=== PATIENT | male | born 1945 | race African-American/Black ===

== ENCOUNTER 2021-04-12 20:00 | Inpatient (IN) | payer MEDICARE, OTHER ==
[~2021-04-12] VITALS: Ht 180.3 cm; Wt 73.6 kg
[2021-04-12] VITALS (9 sets, daily range): BP systolic 125–147; BP diastolic 64–72
[2021-04-12] MEDS ORDERED: VECURONIUM BOLUS 10 MG VIAL. IV PRN (20:15)
[2021-04-12] MEDS ORDERED: ATROPINE 0.5 MG/5 ML DISP.SYRINGE. IV PRN (20:15)
[2021-04-12] MEDS ORDERED: IV NORMAL SALINE 500ML BAG 500 ML IV PRN (20:15)
[2021-04-12] MEDS ORDERED: PROPOFOL 100 ML IV PRN (20:15)
[2021-04-12] MEDS: FAMOTIDINE 20 MG/2 ML VIAL IVP SCH (21:00)
--- NOTE | 2021-04-12 21:41 | PDOC1 ---
History and Physical Date of Service: DOS: DATE: 04/12/21 TIME: 21:36 Chief Complaint: Chief Complain: Shortness of breath History of Present Illness: HPI: Patient is 75-year-old male presented here via transfer from [facility] due to shortness of breath. Patient was apparently feeling short of breath this morning called EMS O2 sat found to be 60% on room air and even with placement of nonrebreather remained in the 60s. Was intubated in the field and brought to the emergency room. History very limited. Past Medical/Surgical History: PMH/PSH: Hypertension diabetes Allergies: Allergies: Coded Allergies: No Known Drug Allergies (Unverified , 04/12/21) Family History: Family History: Cannot review with patient Social History: Social History: Cannot review with patient. Current Medications: Current Medications Current Medications Fentanyl Citrate 30 ml @ 2.5 mls/hr CONT PRN IV SEE PROTOCOL Last administered on 04/12/21at 20:34; Start 04/12/21 at 20:15 Propofol 100 ml @ 0 mls/hr CONT PRN IV PER PROTOCOL Last administered on 04/12/21at 20:32; Start 04/12/21 at 20:15; Stop 04/12/21 at 20:35; Status DC Vecuronium [place] (Norcuron Bolus) 6 mg PRN 1X PRN IV VENT INDUCTION; Start 04/12/21 at 20:15; Stop 04/13/21 at 20:14 Sodium Chloride 500 ml @ 500 mls/hr 1X PRN PRN IV SEE COMMENTS; Start 04/12/21 at 20:15 Atropine Sulfate (ATROPINE 0.5mg SYRINGE) 0.5 mg PRN Q5MIN PRN IV SEE COMMENTS; Start 04/12/21 at 20:15 Famotidine (Pepcid Vial) 20 mg BID IVP Last administered on 04/12/21at 21:00; Start 04/12/21 at 21:00 Propofol 100 ml @ 2.418 mls/ hr CONT PRN IV PER PROTOCOL; Start 04/12/21 at 20:35 ROS: Review of Systems Review of System Unable to obtain due to patient intubated and sedated Physical Exam: Vital Signs: Vital Signs Date Time Temp Pulse Resp B/P (MAP) Pulse Ox O2 Delivery O2 Flow Rate FiO2 04/12/21 21:20 100 04/12/21 21:15 61 20 128/67 Ventilator 04/12/21 19:30 97.9 97.9 Physcial Exam: GEN: No apparent distress. Intubated sedated HEENT: Normal cephalic, atraumatic, external auditory canals are patent EYES: Extraocular muscles are intact, pupil are equally round and reactive to light and accommodation MUSCULOSKELETAL: Well developed , well nourished ENDOCRINE: No thyromegaly was palpated LYMPHATICS: No cervical chain or axillary nodes were noted HEMATOPOIETIC: No bruising NECK: Supple, no JVD, no thyromegaly was noted LUNGS: Decreased breath sounds throughout HEART: RRR, S1, S2 present. Peripheral pulses intact, no obvious murmurs noted ABDOMEN: Soft, nontender. Positive bowel sounds, no organomegaly, normal bowel sounds EXTREMITIES: Bilateral lower extremity edema NEUROLOGIC: Intubated sedated cannot fully assess SKIN: No ulcerations or rashes, good skin turgor, no jaundice VASCULAR: Good capillary refill, neurovascular bundle appears to be intact Assessment/Plan Assessment/Plan Acute hypoxic respiratory failure secondary to pulmonary edema versus is pneumonia gram-negative versus gram-positive. Otherwise medical history very limited -Admit to ICU -Imaging from outside hospital shows bilateral pleural effusions. Could be infectious or inflammatory. Either way we will cover with broad antibiotics and see how he does with a dose of Lasix. -Try to discuss with patient's spouse over the phone very limited information she provided -Continue intubation and sedation until clinical picture more clear -Pulmonary consulted -Zosyn azithromycin -One-time 125 Solu-Medrol -DVT prophylaxis -N.p.o. 50 minutes critical care time Justifications for Admission Other Justification ANDREW ELIZABETH MD Apr 12, 2021 21:41
[2021-04-12] MEDS ORDERED: ONDANSETRON PF 4 MG/2 ML VIAL. IVP PRN (21:45)
[2021-04-12] MEDS ORDERED: CALCIUM CARBONATE 500 MG TAB.CHEW PO PRN (21:45)
[2021-04-12] MEDS ORDERED: PIP/TAZO PER PHARMACY MC PRN (21:45)
[2021-04-12] MEDS ORDERED: ACETAMINOPHEN 325 MG TABLET. PO PRN (21:45)
[2021-04-12] MEDS ORDERED: 0.9 % SODIUM CHLORIDE 10 ML DISP.SYRIN. IV PRN (21:45)
[2021-04-12] MEDS: HEPARIN for SUB-Q USE 5,000 UNIT/ML VIAL. SQ SCH (22:00)
[2021-04-12] MEDS ORDERED: methylPREDNISolone SOD SUCC PF 125 MG/2 ML VIAL. IV ONE (22:00)
--- NOTE | 2021-04-12 22:32 | NUR ---
admit from [facility]. Resp failure. Intubated at [facility] Most health history obtain from .
--- NOTE | 2021-04-12 22:52 | RAD ---
Exam: Chest one view INDICATION: Intubation TECHNIQUE: Frontal view of the chest Comparisons: None FINDINGS: Endotracheal tube with tip approximately 4 cm above the kat. Enteric tube traverses below the diap hragm. The cardiomediastinal silhouette and pulmonary vessels are within normal limits. His opacity in lungs bilaterally. No pleural effusion. IMPRESSION: Lines and tubes described above. Electronically signed by: Christiano Maldonado MD (04/12/2021 10:50 PM) SHARDA
[2021-04-12] MEDS: PIPERACILLIN/TAZOBACTAM 3.375 GM in IV NORMAL SALINE 50ML 50 ML IV SCH (23:50)
[2021-04-13] VITALS (22 sets, daily range): BP systolic 87–146; BP diastolic 43–76
[2021-04-13] MEDS: PROPOFOL 100 ML IV PRN ×4 (00:57→21:10)
[2021-04-13] MEDS: PIPERACILLIN/TAZOBACTAM 3.375 GM in IV NORMAL SALINE 50ML 50 ML IV SCH ×4 (05:49→23:31)
[2021-04-13] MEDS: HEPARIN for SUB-Q USE 5,000 UNIT/ML VIAL. SQ SCH ×3 (05:50→21:17)
[2021-04-13 07:54] LABS: BASE EXCESS ABG -4 mmol/L (-3-3); HCO3 ABG 20 mmol/L (21-28); PCO2 ABG 36 mmHg (35-46); PO2 ABG 116 mmHg (65-108); SAT O2 ABG 97 % (92-99)
[2021-04-13 07:56] LABS: FIO2 ABG 40
[2021-04-13] MEDS: FAMOTIDINE 20 MG/2 ML VIAL IVP SCH ×2 (08:10→21:11)
[2021-04-13] MEDS: DOXYCYCLINE HYCLATE 100 MG in IV DEXTROSE 5% 100ML 100 ML IV SCH ×2 (08:11→21:11)
[2021-04-13 08:53] LABS: CALCIUM 8.3 mg/dL (8.5-10.1); CREATININE 1.1 mg/dL (0.7-1.3); GFR 79.2; POTASSIUM 4.2 mmol/L (3.5-5.1)
[2021-04-13] MEDS: ELECTROLYTE (ICU) PROTOCOL. MC SCH (09:00)
[2021-04-13] MEDS ORDERED: FAMOTIDINE 20 MG TABLET. PO SCH (09:00)
[2021-04-13 09:01] LABS: BASO % 0 % (0-3); EOS % 0 % (0-3); HEMATOCRIT 30.9 % (39.0-53.0); HEMOGLOBIN 10.3 g/dL (13.0-17.5); LYMPH # 0.8 x10^3/uL (1.0-4.8); LYMPH % 9 % (24-48); MEAN CORPUSCULAR HEMOGLOBIN 33 pg (25-35); MEAN CORPUSCULAR HGB CONC 33 g/dL (31-37); MEAN CORPUSCULAR VOLUME 99 fL (79-100); MONO # 0.2 x10^3/uL (0.0-1.1); MONO % 2 % (0-9); NEUT # 8.3 x10^3/uL (1.8-7.7); NEUT % 89 % (31-73); PLATELET COUNT 110 x10^3/uL (140-400); RED BLOOD COUNT 3.13 x10^6/uL (4.30-5.70); RED CELL DISTRIBUTION WIDTH 12.9 % (11.5-14.5); WHITE BLOOD COUNT 9.4 x10^3/uL (4.0-11.0)
[2021-04-13] MEDS ORDERED: methylPREDNISolone SOD SUCC PF 125 MG/2 ML VIAL. IV SCH (11:30)
--- NOTE | 2021-04-13 12:01 | PDOC ---
PULMONARY PROGRESS NOTES DATE: 04/13/21 TIME: 12:00 Vitals Vital Signs Date Time Temp Pulse Resp B/P (MAP) Pulse Ox O2 Delivery O2 Flow Rate FiO2 04/13/21 11:17 100 Ventilator 04/13/21 10:00 53 20 98/50 04/13/21 08:00 97.9 97.9 Labs Laboratory Tests Test 04/12/21 20:49 04/13/21 07:45 04/13/21 08:40 Glucose (Fingerstick) 135 mg/dL (70-99) O2 Saturation 97 % (92-99) Arterial Blood pH 7.37 (7.35-7.45) Arterial Blood pCO2 at Patient Temp 36 mmHg (35-46) Arterial Blood pO2 at Patient Temp 116 mmHg (65-108) Arterial Blood HCO3 20 mmol/L (21-28) Arterial Blood Base Excess -4 mmol/L (-3-3) FiO2 40 White Blood Count 9.4 x10^3/uL (4.0-11.0) Red Blood Count 3.13 x10^6/uL (4.30-5.70) Hemoglobin 10.3 g/dL (13.0-17.5) Hematocrit 30.9 % (39.0-53.0) Mean Corpuscular Volume 99 fL (79-100) Mean Corpuscular Hemoglobin 33 pg (25-35) Mean Corpuscular Hemoglobin Concent 33 g/dL (31-37) Red Cell Distribution Width 12.9 % (11.5-14.5) Platelet Count 110 x10^3/uL (140-400) Neutrophils (%) (Auto) 89 % (31-73) Lymphocytes (%) (Auto) 9 % (24-48) Monocytes (%) (Auto) 2 % (0-9) Eosinophils (%) (Auto) 0 % (0-3) Basophils (%) (Auto) 0 % (0-3) Neutrophils # (Auto) 8.3 x10^3/uL (1.8-7.7) Lymphocytes # (Auto) 0.8 x10^3/uL (1.0-4.8) Monocytes # (Auto) 0.2 x10^3/uL (0.0-1.1) Eosinophils # (Auto) 0.0 x10^3/uL (0.0-0.7) Basophils # (Auto) 0.0 x10^3/uL (0.0-0.2) Sodium Level 144 mmol/L (136-145) Potassium Level 4.2 mmol/L (3.5-5.1) Chloride Level 108 mmol/L (98-107) Carbon Dioxide Level 23 mmol/L (21-32) Anion Gap 13 (6-14) Blood Urea Nitrogen 29 mg/dL (8-26) Creatinine 1.1 mg/dL (0.7-1.3) Estimated GFR (Cockcroft-Gault) 79.2 Glucose Level 187 mg/dL (70-99) Calcium Level 8.3 mg/dL (8.5-10.1) Laboratory Tests Test 04/12/21 20:49 04/13/21 07:45 04/13/21 08:40 Glucose (Fingerstick) 135 mg/dL (70-99) O2 Saturation 97 % (92-99) Arterial Blood pH 7.37 (7.35-7.45) Arterial Blood pCO2 at Patient Temp 36 mmHg (35-46) Arterial Blood pO2 at Patient Temp 116 mmHg (65-108) Arterial Blood HCO3 20 mmol/L (21-28) Arterial Blood Base Excess -4 mmol/L (-3-3) FiO2 40 White Blood Count 9.4 x10^3/uL (4.0-11.0) Red Blood Count 3.13 x10^6/uL (4.30-5.70) Hemoglobin 10.3 g/dL (13.0-17.5) Hematocrit 30.9 % (39.0-53.0) Mean Corpuscular Volume 99 fL (79-100) Mean Corpuscular Hemoglobin 33 pg (25-35) Mean Corpuscular Hemoglobin Concent 33 g/dL (31-37) Red Cell Distribution Width 12.9 % (11.5-14.5) Platelet Count 110 x10^3/uL (140-400) Neutrophils (%) (Auto) 89 % (31-73) Lymphocytes (%) (Auto) 9 % (24-48) Monocytes (%) (Auto) 2 % (0-9) Eosinophils (%) (Auto) 0 % (0-3) Basophils (%) (Auto) 0 % (0-3) Neutrophils # (Auto) 8.3 x10^3/uL (1.8-7.7) Lymphocytes # (Auto) 0.8 x10^3/uL (1.0-4.8) Monocytes # (Auto) 0.2 x10^3/uL (0.0-1.1) Eosinophils # (Auto) 0.0 x10^3/uL (0.0-0.7) Basophils # (Auto) 0.0 x10^3/uL (0.0-0.2) Sodium Level 144 mmol/L (136-145) Potassium Level 4.2 mmol/L (3.5-5.1) Chloride Level 108 mmol/L (98-107) Carbon Dioxide Level 23 mmol/L (21-32) Anion Gap 13 (6-14) Blood Urea Nitrogen 29 mg/dL (8-26) Creatinine 1.1 mg/dL (0.7-1.3) Estimated GFR (Cockcroft-Gault) 79.2 Glucose Level 187 mg/dL (70-99) Calcium Level 8.3 mg/dL (8.5-10.1) Impression . Full consult dictated Acute hypoxemic respiratory failure suspect mostly secondary to pulmonary edema, continue empiric antibiotics for an infection Consult cardiology IV Lasix Reportedly patient tested negative for SARS-CoV-2. JUMA HODGE MD Apr 13, 2021 12:01
[2021-04-13] MEDS ORDERED: FUROSEMIDE 40 MG/4 ML VIAL. IVP ONE (12:30)
[2021-04-13 12:31] LABS: BILIRUBIN,URINE NEGATIVE (NEG); CLARITY,URINE CLEAR; COLOR,URINE YELLOW; NITRITE,URINE NEGATIVE (NEG); PROTEIN,URINE 30 mg/dL (NEG-TRACE); UROBILINOGEN,URINE 0.2 mg/dL (0.2 mg/dL)
[2021-04-13 12:34] LABS: BARBITURATES NEG (NEG); BENZODIAZEPINES POS (NEG); CANNABINOIDS NEG (NEG); COCAINE NEG (NEG); METHADONE NEG (NEG); OPIATES NEG (NEG); PHENCYCLIDINE NEG (NEG)
[2021-04-13 12:35] LABS: AMPHETAMINE/METHAMPHETAMINE NEG (NEG)
[2021-04-13 12:51] LABS: BACTERIA,URINE 0 /HPF (0-FEW); RBC,URINE 0 /HPF (0-2); SPERM,URINE PRESENT /HPF
[2021-04-13] MEDS ORDERED: FUROSEMIDE 40 MG/4 ML VIAL. IVP SCH (14:00)
--- NOTE | 2021-04-13 14:47 | NUR ---
SS following for discharge planning. SS reviewed pt chart and discussed with pt RN. Pt is from home with spouse and is currently on the vent at 40%. COVID19 positive. Pt on Propofol and Fentanyl. Pt on IV Lasix, IV Doxycycline, and IV Zosyn. Not stable. Pt's spouse contacted and requested referral to [facility] for emergency leave for her son First Class Chris Palomares in [place], [place]. contacted [facility] at [phone], and made request for leave. Case#[id number], was provided. contacted pt's spouse and son and provided them with the [facility] case number. SS will continue to follow for discharge planning. Addendum: 04/13/21 at 1516 by EDD PIZANO CORRECTION TO PREVIOUS NOTE: Per clothes presser, pt is COVID19 negative from [facility].
--- NOTE | 2021-04-13 16:08 | PDOC ---
[employer] PROGRESS NOTE Date of Service DOS: DATE: 04/13/21 TIME: 16:05 Chief Complaint Chief Complaint Acute hypoxic respiratory failure ACUTE systolic CHF, lasix acute pulmonary edema - poss pneumonia gram-negative versus gram-positive. History of Present Illness History of Present Illness CXR reviewed with PULM BNP up, will give lasix, urine cr high CV consult on vent, wean as able, Fi02 down already, try to trial if able, intubated in ER at [facility] urgently, was covid NEGATIVE ICU Care 33 minutes Vitals/I&O Vitals/I&O: Vital Signs Date Time Temp Pulse Resp B/P (MAP) Pulse Ox O2 Delivery O2 Flow Rate FiO2 04/13/21 15:44 100 Ventilator 04/13/21 15:00 52 20 142/67 04/13/21 12:00 97.6 97.6 I & O 04/12/21 04/12/21 04/13/21 15:00 23:00 07:00 Intake Total 135 ml Output Total 575 ml 475 ml Balance -575 ml -340 ml Physical Exam General: Other (venet, sedated, ) Heart: Regular rate, Gallops Lungs: Other (ralas, no wheeze, distant, mech sound of vent) Abdomen: No tenderness Extremities: No cyanosis Skin: No breakdown, No significant lesion Labs Labs: Laboratory Tests Test 04/12/21 20:49 04/13/21 07:45 04/13/21 08:40 04/13/21 12:22 Glucose (Fingerstick) 135 mg/dL (70-99) O2 Saturation 97 % (92-99) Arterial Blood pH 7.37 (7.35-7.45) Arterial Blood pCO2 at Patient Temp 36 mmHg (35-46) Arterial Blood pO2 at Patient Temp 116 mmHg (65-108) Arterial Blood HCO3 20 mmol/L (21-28) Arterial Blood Base Excess -4 mmol/L (-3-3) FiO2 40 White Blood Count 9.4 x10^3/uL (4.0-11.0) Red Blood Count 3.13 x10^6/uL (4.30-5.70) Hemoglobin 10.3 g/dL (13.0-17.5) Hematocrit 30.9 % (39.0-53.0) Mean Corpuscular Volume 99 fL (79-100) Mean Corpuscular Hemoglobin 33 pg (25-35) Mean Corpuscular Hemoglobin Concent 33 g/dL (31-37) Red Cell Distribution Width 12.9 % (11.5-14.5) Platelet Count 110 x10^3/uL (140-400) Neutrophils (%) (Auto) 89 % (31-73) Lymphocytes (%) (Auto) 9 % (24-48) Monocytes (%) (Auto) 2 % (0-9) Eosinophils (%) (Auto) 0 % (0-3) Basophils (%) (Auto) 0 % (0-3) Neutrophils # (Auto) 8.3 x10^3/uL (1.8-7.7) Lymphocytes # (Auto) 0.8 x10^3/uL (1.0-4.8) Monocytes # (Auto) 0.2 x10^3/uL (0.0-1.1) Eosinophils # (Auto) 0.0 x10^3/uL (0.0-0.7) Basophils # (Auto) 0.0 x10^3/uL (0.0-0.2) Sodium Level 144 mmol/L (136-145) Potassium Level 4.2 mmol/L (3.5-5.1) Chloride Level 108 mmol/L (98-107) Carbon Dioxide Level 23 mmol/L (21-32) Anion Gap 13 (6-14) Blood Urea Nitrogen 29 mg/dL (8-26) Creatinine 1.1 mg/dL (0.7-1.3) Estimated GFR (Cockcroft-Gault) 79.2 Glucose Level 187 mg/dL (70-99) Calcium Level 8.3 mg/dL (8.5-10.1) ZP-Tir-O-Type Natriuretic Peptide 1405 pg/mL (0-124) Urine Collection Type Unknown Urine Color Yellow Urine Clarity Clear Urine pH 5.0 (<5.0-8.0) Urine Specific [place] >=1.030 (1.000-1.030) Urine Protein 30 mg/dL (NEG-TRACE) Urine Glucose (UA) Negative mg/dL (NEG) Urine Ketones (Stick) Trace mg/dL (NEG) Urine Blood Negative (NEG) Urine Nitrite Negative (NEG) Urine Bilirubin Negative (NEG) Urine Urobilinogen Dipstick 0.2 mg/dL (0.2 mg/dL) Urine Leukocyte Esterase Negative (NEG) Urine RBC 0 /HPF (0-2) Urine WBC 1-4 /HPF (0-4) Urine Squamous Epithelial Cells Few /LPF Urine Bacteria 0 /HPF (0-FEW) Urine Sperm Present /HPF Urine Random Creatinine 161.0 mg/dL (Not Establ.) Urine Opiates Screen Neg (NEG) Urine Methadone Screen Neg (NEG) Urine Barbiturates Neg (NEG) Urine Phencyclidine Screen Neg (NEG) Urine Amphetamine/Methamphetamine Neg (NEG) Urine Benzodiazepines Screen Pos (NEG) Urine Cocaine Screen Neg (NEG) Urine Cannabinoids Screen Neg (NEG) Urine Ethyl Alcohol Neg (NEG) Comment Review of Relevant I have reviewed the following items carmen (where applicable) has been applied. Medications: Current Medications Medications (Trade) Dose Ordered Sig/Radhames Route PRN Reason Start Time Stop Time Status Last Admin Dose Admin Fentanyl Citrate 30 ml @ 2.5 mls/hr CONT PRN IV SEE PROTOCOL 04/12/21 20:15 04/13/21 07:22 Propofol 100 ml @ 0 mls/hr CONT PRN IV PER PROTOCOL 04/12/21 20:15 04/12/21 20:35 DC 04/12/21 20:32 Famotidine (Pepcid Vial) 20 mg BID IVP 04/12/21 21:00 04/13/21 08:10 Propofol 100 ml @ 2.418 mls/ hr CONT PRN IV PER PROTOCOL 04/12/21 20:35 04/13/21 13:46 Heparin Sodium (Porcine) (Heparin Sodium) 5,000 unit Q8HRS SQ 04/12/21 22:00 04/13/21 13:48 Methylprednisolone Sodium Succinate (SOLU-Medrol 125MG VIAL) 125 mg 1X ONCE IV 04/12/21 22:00 04/12/21 22:01 DC 04/12/21 22:05 Doxycycline Hyclate 100 mg/ Dextrose 100 ml @ 50 mls/hr Q12HR IV 04/13/21 09:00 04/13/21 08:11 Piperacillin Sod/ Tazobactam Sod 3.375 gm/Sodium Chloride 50 ml @ 100 mls/hr Q6HRS IV 04/13/21 00:00 04/13/21 12:08 Furosemide (Lasix) 40 mg 1X ONCE IVP 04/13/21 12:30 04/13/21 12:31 DC 04/13/21 12:09 Justifications for Admission Other Justification LEYDI RIZO MD Apr 13, 2021 16:08
--- NOTE | 2021-04-13 17:51 | PDOC2 ---
CONSULT Date of Consult Date of Consult DATE: 04/13/21 TIME: 17:45 Reason for Consult Reason for Consult: Heart and respiratory failure Referring Physician Referring Physician: Dr. Yap Identification/Chief Complaint Chief Complaint Respiratory failure Source Source: Chart review History of Present Illness Reason for Visit: The patient is a 75-year-old male who was seen in the emergency room at [facility] last night due to progressively increasing shortness of breath. The patient reportedly denied chest pain. He deteriorated in the emergency room requiring intubation. Initial blood testing included normal troponins at [address] scan showed no acute intracranial abnormalities. CT scan of the chest showed no pulmonary embolism. Did show bilateral pulmonary opacities with bilateral pleural effusions. Patient was treated with respiratory support antibiotics and IV Lasix and transferred to [place]. At [place] he is continued on the ventilator. Antibiotics, steroids and diuresis has been continued. He has been reviewed by the pulmonary service. We have very limited past history available at this time. Updated chest x-ray shows bilateral opacities in his lungs. Updated BNP is 1405, potassium 4.2 and creatinine 1.1 Past Medical History Past Medical History No past medical history is available. Past Surgical History Past Surgical History No past history is available at this time. Current Medications Current Medications Current Medications Fentanyl Citrate 30 ml @ 2.5 mls/hr CONT PRN IV SEE PROTOCOL Last administered on 04/13/21at 07:22; Start 04/12/21 at 20:15 Propofol 100 ml @ 0 mls/hr CONT PRN IV PER PROTOCOL Last administered on 04/12/21at 20:32; Start 04/12/21 at 20:15; Stop 04/12/21 at 20:35; Status DC Vecuronium [place] (Norcuron Bolus) 6 mg PRN 1X PRN IV VENT INDUCTION; Start 04/12/21 at 20:15; Stop 04/13/21 at 20:14 Sodium Chloride 500 ml @ 500 mls/hr 1X PRN PRN IV SEE COMMENTS; Start 04/12/21 at 20:15 Atropine Sulfate (ATROPINE 0.5mg SYRINGE) 0.5 mg PRN Q5MIN PRN IV SEE COMMENTS; Start 04/12/21 at 20:15; Status Cancel Famotidine (Pepcid Vial) 20 mg BID IVP Last administered on 04/13/21at 08:10; Start 04/12/21 at 21:00 Propofol 100 ml @ 2.418 mls/ hr CONT PRN IV PER PROTOCOL Last administered on 04/13/21at 13:46; Start 04/12/21 at 20:35 Acetaminophen (Tylenol) 650 mg PRN Q6HRS PRN PO Headaches, Temp > 101.5'; Start 04/12/21 at 21:45 Lorazepam (Ativan Inj) 0.5 mg PRN Q6HRS PRN IVP ANXIETY / AGITATION; Start 04/12/21 at 21:45 Ondansetron HCl (Zofran) 4 mg PRN Q6HRS PRN IVP NAUSEA/VOMITING 1ST CHOICE; Start 04/12/21 at 21:45 Calcium Carbonate/ Glycine (Tums) 500 mg PRN Q3HRS PRN PO HEARTBURN / GAS; Start 04/12/21 at 21:45 Famotidine (Pepcid) 20 mg BID PO ; Start 04/13/21 at 09:00; Status UNV Info (Icu Electrolyte Protocol) 1 ea DAILY MC ; Start 04/13/21 at 09:00 Heparin Sodium (Porcine) (Heparin Sodium) 5,000 unit Q8HRS SQ Last administered on 04/13/21at 13:48; Start 04/12/21 at 22:00 Sodium Chloride (Normal Saline Flush) 3 ml QSHIFT PRN IV AFTER MEDS AND BLOOD DRAWS; Start 04/12/21 at 21:45 Piperacillin Sod/ Tazobactam Sod (Zosyn Per Pharmacy) 1 each PRN DAILY PRN MC SEE COMMENTS; Start 04/12/21 at 21:45 Methylprednisolone Sodium Succinate (SOLU-Medrol 125MG VIAL) 125 mg 1X ONCE IV Last administered on 04/12/21at 22:05; Start 04/12/21 at 22:00; Stop 04/12/21 at 22:01; Status DC Doxycycline Hyclate 100 mg/ Dextrose 100 ml @ 50 mls/hr Q12HR IV Last administered on 04/13/21at 08:11; Start 04/13/21 at 09:00 Piperacillin Sod/ Tazobactam Sod 3.375 gm/Sodium Chloride 50 ml @ 100 mls/hr Q6HRS IV Last administered on 04/13/21at 12:08; Start 04/13/21 at 00:00 Methylprednisolone Sodium Succinate (SOLU-Medrol 125MG VIAL) 125 mg BID IV ; Start 04/13/21 at 11:30; Stop 04/13/21 at 11:29; Status DC Furosemide (Lasix) 40 mg BID92 PEG ; Start 04/13/21 at 21:00; Stop 04/13/21 at 12:46; Status DC Furosemide (Lasix) 40 mg 1X ONCE IVP Last administered on 04/13/21at 12:09; Start 04/13/21 at 12:30; Stop 04/13/21 at 12:31; Status DC Furosemide (Lasix) 40 mg BID92 IVP ; Start 04/13/21 at 14:00; Stop 04/13/21 at 13:43; Status DC Furosemide (Lasix) 40 mg BID76 IVP ; Start 04/13/21 at 18:00 Allergies Allergies: Coded Allergies: No Known Drug Allergies (Unverified , 04/12/21) ROS Review of System The patient is intubated. Physical Exam General: Other (Intubated on a ventilator.) Lungs: Other (Decreased breath sounds bilaterally) Heart: Regular rate Abdomen: Normal bowel sounds Vitals VITALS Vital Signs Date Time Temp Pulse Resp B/P (MAP) Pulse Ox O2 Delivery O2 Flow Rate FiO2 04/13/21 17:16 100 Ventilator 04/13/21 17:00 71 20 128/72 04/13/21 16:00 97.8 97.8 Labs Labs Laboratory Tests Test 04/12/21 20:49 04/13/21 07:45 04/13/21 08:40 04/13/21 12:22 Glucose (Fingerstick) 135 mg/dL (70-99) O2 Saturation 97 % (92-99) Arterial Blood pH 7.37 (7.35-7.45) Arterial Blood pCO2 at Patient Temp 36 mmHg (35-46) Arterial Blood pO2 at Patient Temp 116 mmHg (65-108) Arterial Blood HCO3 20 mmol/L (21-28) Arterial Blood Base Excess -4 mmol/L (-3-3) FiO2 40 White Blood Count 9.4 x10^3/uL (4.0-11.0) Red Blood Count 3.13 x10^6/uL (4.30-5.70) Hemoglobin 10.3 g/dL (13.0-17.5) Hematocrit 30.9 % (39.0-53.0) Mean Corpuscular Volume 99 fL (79-100) Mean Corpuscular Hemoglobin 33 pg (25-35) Mean Corpuscular Hemoglobin Concent 33 g/dL (31-37) Red Cell Distribution Width 12.9 % (11.5-14.5) Platelet Count 110 x10^3/uL (140-400) Neutrophils (%) (Auto) 89 % (31-73) Lymphocytes (%) (Auto) 9 % (24-48) Monocytes (%) (Auto) 2 % (0-9) Eosinophils (%) (Auto) 0 % (0-3) Basophils (%) (Auto) 0 % (0-3) Neutrophils # (Auto) 8.3 x10^3/uL (1.8-7.7) Lymphocytes # (Auto) 0.8 x10^3/uL (1.0-4.8) Monocytes # (Auto) 0.2 x10^3/uL (0.0-1.1) Eosinophils # (Auto) 0.0 x10^3/uL (0.0-0.7) Basophils # (Auto) 0.0 x10^3/uL (0.0-0.2) Sodium Level 144 mmol/L (136-145) Potassium Level 4.2 mmol/L (3.5-5.1) Chloride Level 108 mmol/L (98-107) Carbon Dioxide Level 23 mmol/L (21-32) Anion Gap 13 (6-14) Blood Urea Nitrogen 29 mg/dL (8-26) Creatinine 1.1 mg/dL (0.7-1.3) Estimated GFR (Cockcroft-Gault) 79.2 Glucose Level 187 mg/dL (70-99) Calcium Level 8.3 mg/dL (8.5-10.1) KA-Ben-C-Type Natriuretic Peptide 1405 pg/mL (0-124) Urine Collection Type Unknown Urine Color Yellow Urine Clarity Clear Urine pH 5.0 (<5.0-8.0) Urine Specific [place] >=1.030 (1.000-1.030) Urine Protein 30 mg/dL (NEG-TRACE) Urine Glucose (UA) Negative mg/dL (NEG) Urine Ketones (Stick) Trace mg/dL (NEG) Urine Blood Negative (NEG) Urine Nitrite Negative (NEG) Urine Bilirubin Negative (NEG) Urine Urobilinogen Dipstick 0.2 mg/dL (0.2 mg/dL) Urine Leukocyte Esterase Negative (NEG) Urine RBC 0 /HPF (0-2) Urine WBC 1-4 /HPF (0-4) Urine Squamous Epithelial Cells Few /LPF Urine Bacteria 0 /HPF (0-FEW) Urine Sperm Present /HPF Urine Random Creatinine 161.0 mg/dL (Not Establ.) Urine Opiates Screen Neg (NEG) Urine Methadone Screen Neg (NEG) Urine Barbiturates Neg (NEG) Urine Phencyclidine Screen Neg (NEG) Urine Amphetamine/Methamphetamine Neg (NEG) Urine Benzodiazepines Screen Pos (NEG) Urine Cocaine Screen Neg (NEG) Urine Cannabinoids Screen Neg (NEG) Urine Ethyl Alcohol Neg (NEG) Laboratory Tests Test 04/12/21 20:49 04/13/21 07:45 04/13/21 08:40 04/13/21 12:22 Glucose (Fingerstick) 135 mg/dL (70-99) O2 Saturation 97 % (92-99) Arterial Blood pH 7.37 (7.35-7.45) Arterial Blood pCO2 at Patient Temp 36 mmHg (35-46) Arterial Blood pO2 at Patient Temp 116 mmHg (65-108) Arterial Blood HCO3 20 mmol/L (21-28) Arterial Blood Base Excess -4 mmol/L (-3-3) FiO2 40 White Blood Count 9.4 x10^3/uL (4.0-11.0) Red Blood Count 3.13 x10^6/uL (4.30-5.70) Hemoglobin 10.3 g/dL (13.0-17.5) Hematocrit 30.9 % (39.0-53.0) Mean Corpuscular Volume 99 fL (79-100) Mean Corpuscular Hemoglobin 33 pg (25-35) Mean Corpuscular Hemoglobin Concent 33 g/dL (31-37) Red Cell Distribution Width 12.9 % (11.5-14.5) Platelet Count 110 x10^3/uL (140-400) Neutrophils (%) (Auto) 89 % (31-73) Lymphocytes (%) (Auto) 9 % (24-48) Monocytes (%) (Auto) 2 % (0-9) Eosinophils (%) (Auto) 0 % (0-3) Basophils (%) (Auto) 0 % (0-3) Neutrophils # (Auto) 8.3 x10^3/uL (1.8-7.7) Lymphocytes # (Auto) 0.8 x10^3/uL (1.0-4.8) Monocytes # (Auto) 0.2 x10^3/uL (0.0-1.1) Eosinophils # (Auto) 0.0 x10^3/uL (0.0-0.7) Basophils # (Auto) 0.0 x10^3/uL (0.0-0.2) Sodium Level 144 mmol/L (136-145) Potassium Level 4.2 mmol/L (3.5-5.1) Chloride Level 108 mmol/L (98-107) Carbon Dioxide Level 23 mmol/L (21-32) Anion Gap 13 (6-14) Blood Urea Nitrogen 29 mg/dL (8-26) Creatinine 1.1 mg/dL (0.7-1.3) Estimated GFR (Cockcroft-Gault) 79.2 Glucose Level 187 mg/dL (70-99) Calcium Level 8.3 mg/dL (8.5-10.1) UO-Dir-C-Type Natriuretic Peptide 1405 pg/mL (0-124) Urine Collection Type Unknown Urine Color Yellow Urine Clarity Clear Urine pH 5.0 (<5.0-8.0) Urine Specific [place] >=1.030 (1.000-1.030) Urine Protein 30 mg/dL (NEG-TRACE) Urine Glucose (UA) Negative mg/dL (NEG) Urine Ketones (Stick) Trace mg/dL (NEG) Urine Blood Negative (NEG) Urine Nitrite Negative (NEG) Urine Bilirubin Negative (NEG) Urine Urobilinogen Dipstick 0.2 mg/dL (0.2 mg/dL) Urine Leukocyte Esterase Negative (NEG) Urine RBC 0 /HPF (0-2) Urine WBC 1-4 /HPF (0-4) Urine Squamous Epithelial Cells Few /LPF Urine Bacteria 0 /HPF (0-FEW) Urine Sperm Present /HPF Urine Random Creatinine 161.0 mg/dL (Not Establ.) Urine Opiates Screen Neg (NEG) Urine Methadone Screen Neg (NEG) Urine Barbiturates Neg (NEG) Urine Phencyclidine Screen Neg (NEG) Urine Amphetamine/Methamphetamine Neg (NEG) Urine Benzodiazepines Screen Pos (NEG) Urine Cocaine Screen Neg (NEG) Urine Cannabinoids Screen Neg (NEG) Urine Ethyl Alcohol Neg (NEG) Images Images Imaging as above. Assessment/Plan Assessment/Plan 1. Acute hypoxic respiratory failure. Patient has been intubated and is followed by the pulmonary service. Brief available past history as above. From a cardiac viewpoint we will continue with diuresis as tolerated and monitor lab. As noted above troponin x2 was normal at [facility]. BNP is only moderately elevated at 1405. 2. Probable systolic heart failure. Continue treatment as above. Monitoring lab. Checking echo. 3. Imaging as above as above shows a head CTA with no acute intracranial abnormalities. Will obtain old records as soon as possible. SHAUNNA MONTAGUE MD Apr 13, 2021 17:51
[2021-04-13] MEDS: FUROSEMIDE 40 MG/4 ML VIAL. IVP SCH (18:00)
--- NOTE | 2021-04-13 19:35 | CONS ---
DATE OF CONSULTATION: 04/13/2021 ATTENDING PHYSICIAN: Dontrell Leigh MD REASON FOR CONSULTATION: The patient is seen in pulmonary consultation at the request of Dr. Leigh for respiratory failure. HISTORY OF PRESENT ILLNESS: The patient is a 75-year-old that presented via EMS to [facility] with low saturations. EMS was summoned. They found him to have saturations of 60% on the field despite 15 liters of nonrebreather. Blood sugar at that time was 154. Per patient, family is not vaccinated for COVID. No additional history was obtained. There is no history of drug use. The patient was transferred to [facility] Emergency Room. He underwent rapid intubation. CT chest was obtained. I personally reviewed the CT. There is evidence of bilateral interstitial infiltrates compatible with the possibility of pulmonary edema versus an atypical infection. He also has a small pericardial effusion along with bilateral pleural effusions. No additional history is obtained from the patient or family members. He was transferred for higher level of care to [facility]. I reviewed, his white count is 9.4, hemoglobin and hematocrit of 10 and 30. Arterial blood gas; pH of 7.37, PaCO2 of 36, pO2 of 116 on 40% FiO2, 5 of PEEP. Electrolytes were noted. BUN was 29, creatinine was 1.1. A chest x-ray this morning was reviewed. There continues to be bilateral pulmonary infiltrates, cardiomegaly. No significant pleural effusions. PAST MEDICAL HISTORY: Obtained by reviewing the documentation from [facility]. I do not see any significant history of heart disease or COPD. Unknown if the patient smoked in the past. REVIEW OF SYSTEMS: Unobtainable secondary to patient's condition. CURRENT MEDICATIONS: List was reviewed. The patient was empirically started on doxycycline, Zosyn. He is also being given Pepcid, heparin subcutaneously. He has been sedated. He was given Solu-Medrol. PHYSICAL EXAMINATION: VITAL SIGNS: Overnight the patient had been hemodynamically stable. EYES: The sclerae were nonicteric. NECK: Jugular venous distention was not elevated. Orally placed endotracheal tube. CHEST: Full expansion. LUNGS: Anteriorly were clear. CARDIOVASCULAR: Regular rate and rhythm with S1, S2. No S3. ABDOMEN: Soft. EXTREMITIES: No clubbing or cyanosis. No pitting edema. NEUROLOGIC: The patient was sedated. LABORATORY DATA: As indicated above. RN reports that rapid and nucleic amplification test for SARS-CoV-[address] head, no evidence of acute intracranial hemorrhage. A CT chest as indicated above. IMPRESSION: 1. Acute hypoxemic respiratory failure. 2. Abnormal CT chest revealing no evidence of pulmonary embolism. There is evidence of bilateral infiltrates, interstitial in nature, possible pulmonary edema versus atypical pneumonia. 3. Possible gram-negative, gram-positive pneumonia. 4. SARS-CoV-2 negative, both rapid and nucleic amplification test, I have not seen this myself, this was reported by the nurse. 5. Chronic anemia. 6. Small pericardial effusion. 7. Bilateral pleural effusion. 8. The patient unvaccinated for COVID-19. DISCUSSION: Based upon the current presentation and CT chest finding, I suspect most of the patient's findings are related to acute pulmonary edema. With that being said, we will continue coverage for bacterial pneumonia. PLAN: 1. Continue current support. Decrease minute ventilation. 2. IV Lasix. 3. Consult Cardiology. 4. Monitor labs. 5. DVT prophylaxis. 6. GI prophylaxis. I do appreciate the privilege in sharing in the patient's care. Total cumulative critical care time of 50 minutes, reviewing the current documentation, imaging studies formulating an impression and plan. [facility] [place]: Karla TID: [id number]
[2021-04-13] MEDS ORDERED: FUROSEMIDE 40 MG/4 ML ORAL SOLUTION. PEG SCH (21:00)
[2021-04-14] VITALS (24 sets, daily range): BP systolic 113–169; BP diastolic 50–92
[2021-04-14] MEDS ORDERED: VECURONIUM BOLUS 10 MG VIAL. IV PRN (05:15)
[2021-04-14] MEDS ORDERED: NORCURON - VECURONIUM 50 MG in IV NORMAL SALINE 50ML 50 ML IV PRN (05:15)
[2021-04-14 05:22] LABS: BASO % 0 % (0-3); EOS % 0 % (0-3); HEMATOCRIT 29.9 % (39.0-53.0); HEMOGLOBIN 9.9 g/dL (13.0-17.5); LYMPH # 1.5 x10^3/uL (1.0-4.8); LYMPH % 17 % (24-48); MEAN CORPUSCULAR HEMOGLOBIN 33 pg (25-35); MEAN CORPUSCULAR HGB CONC 33 g/dL (31-37); MEAN CORPUSCULAR VOLUME 99 fL (79-100); MONO # 0.7 x10^3/uL (0.0-1.1); MONO % 8 % (0-9); NEUT # 6.5 x10^3/uL (1.8-7.7); NEUT % 75 % (31-73); PLATELET COUNT 95 x10^3/uL (140-400); RED BLOOD COUNT 3.03 x10^6/uL (4.30-5.70); RED CELL DISTRIBUTION WIDTH 13.3 % (11.5-14.5); WHITE BLOOD COUNT 8.7 x10^3/uL (4.0-11.0)
--- NOTE | 2021-04-14 05:36 | PDOC ---
PULMONARY PROGRESS NOTES DATE: 04/14/21 TIME: 05:34 Subjective on vent sedated on propofol fentanyl [id number]% peep 5 Vitals Vital Signs Date Time Temp Pulse Resp B/P (MAP) Pulse Ox O2 Delivery O2 Flow Rate FiO2 04/14/21 04:57 43 20 162/72 100 Ventilator 04/14/21 01:09 97.9 97.9 Comments ros unable to obtain on vent sedated HEENT: Other (nc at perrl nose clear orally intubated neck no lad no thyromegaly) Lungs: Crackles, Other Cardiovascular: S1, S2 Abdomen: Soft Extremities: Other Skin: Warm Labs Laboratory Tests Test 04/12/21 20:49 04/13/21 07:45 04/13/21 08:40 04/13/21 12:22 Glucose (Fingerstick) 135 mg/dL (70-99) O2 Saturation 97 % (92-99) Arterial Blood pH 7.37 (7.35-7.45) Arterial Blood pCO2 at Patient Temp 36 mmHg (35-46) Arterial Blood pO2 at Patient Temp 116 mmHg (65-108) Arterial Blood HCO3 20 mmol/L (21-28) Arterial Blood Base Excess -4 mmol/L (-3-3) FiO2 40 White Blood Count 9.4 x10^3/uL (4.0-11.0) Red Blood Count 3.13 x10^6/uL (4.30-5.70) Hemoglobin 10.3 g/dL (13.0-17.5) Hematocrit 30.9 % (39.0-53.0) Mean Corpuscular Volume 99 fL (79-100) Mean Corpuscular Hemoglobin 33 pg (25-35) Mean Corpuscular Hemoglobin Concent 33 g/dL (31-37) Red Cell Distribution Width 12.9 % (11.5-14.5) Platelet Count 110 x10^3/uL (140-400) Neutrophils (%) (Auto) 89 % (31-73) Lymphocytes (%) (Auto) 9 % (24-48) Monocytes (%) (Auto) 2 % (0-9) Eosinophils (%) (Auto) 0 % (0-3) Basophils (%) (Auto) 0 % (0-3) Neutrophils # (Auto) 8.3 x10^3/uL (1.8-7.7) Lymphocytes # (Auto) 0.8 x10^3/uL (1.0-4.8) Monocytes # (Auto) 0.2 x10^3/uL (0.0-1.1) Eosinophils # (Auto) 0.0 x10^3/uL (0.0-0.7) Basophils # (Auto) 0.0 x10^3/uL (0.0-0.2) Sodium Level 144 mmol/L (136-145) Potassium Level 4.2 mmol/L (3.5-5.1) Chloride Level 108 mmol/L (98-107) Carbon Dioxide Level 23 mmol/L (21-32) Anion Gap 13 (6-14) Blood Urea Nitrogen 29 mg/dL (8-26) Creatinine 1.1 mg/dL (0.7-1.3) Estimated GFR (Cockcroft-Gault) 79.2 Glucose Level 187 mg/dL (70-99) Calcium Level 8.3 mg/dL (8.5-10.1) PH-Rux-H-Type Natriuretic Peptide 1405 pg/mL (0-124) Urine Collection Type Unknown Urine Color Yellow Urine Clarity Clear Urine pH 5.0 (<5.0-8.0) Urine Specific [place] >=1.030 (1.000-1.030) Urine Protein 30 mg/dL (NEG-TRACE) Urine Glucose (UA) Negative mg/dL (NEG) Urine Ketones (Stick) Trace mg/dL (NEG) Urine Blood Negative (NEG) Urine Nitrite Negative (NEG) Urine Bilirubin Negative (NEG) Urine Urobilinogen Dipstick 0.2 mg/dL (0.2 mg/dL) Urine Leukocyte Esterase Negative (NEG) Urine RBC 0 /HPF (0-2) Urine WBC 1-4 /HPF (0-4) Urine Squamous Epithelial Cells Few /LPF Urine Bacteria 0 /HPF (0-FEW) Urine Sperm Present /HPF Urine Random Creatinine 161.0 mg/dL (Not Establ.) Urine Opiates Screen Neg (NEG) Urine Methadone Screen Neg (NEG) Urine Barbiturates Neg (NEG) Urine Phencyclidine Screen Neg (NEG) Urine Amphetamine/Methamphetamine Neg (NEG) Urine Benzodiazepines Screen Pos (NEG) Urine Cocaine Screen Neg (NEG) Urine Cannabinoids Screen Neg (NEG) Urine Ethyl Alcohol Neg (NEG) Laboratory Tests Test 04/13/21 07:45 04/13/21 08:40 04/13/21 12:22 O2 Saturation 97 % (92-99) Arterial Blood pH 7.37 (7.35-7.45) Arterial Blood pCO2 at Patient Temp 36 mmHg (35-46) Arterial Blood pO2 at Patient Temp 116 mmHg (65-108) Arterial Blood HCO3 20 mmol/L (21-28) Arterial Blood Base Excess -4 mmol/L (-3-3) FiO2 40 White Blood Count 9.4 x10^3/uL (4.0-11.0) Red Blood Count 3.13 x10^6/uL (4.30-5.70) Hemoglobin 10.3 g/dL (13.0-17.5) Hematocrit 30.9 % (39.0-53.0) Mean Corpuscular Volume 99 fL (79-100) Mean Corpuscular Hemoglobin 33 pg (25-35) Mean Corpuscular Hemoglobin Concent 33 g/dL (31-37) Red Cell Distribution Width 12.9 % (11.5-14.5) Platelet Count 110 x10^3/uL (140-400) Neutrophils (%) (Auto) 89 % (31-73) Lymphocytes (%) (Auto) 9 % (24-48) Monocytes (%) (Auto) 2 % (0-9) Eosinophils (%) (Auto) 0 % (0-3) Basophils (%) (Auto) 0 % (0-3) Neutrophils # (Auto) 8.3 x10^3/uL (1.8-7.7) Lymphocytes # (Auto) 0.8 x10^3/uL (1.0-4.8) Monocytes # (Auto) 0.2 x10^3/uL (0.0-1.1) Eosinophils # (Auto) 0.0 x10^3/uL (0.0-0.7) Basophils # (Auto) 0.0 x10^3/uL (0.0-0.2) Sodium Level 144 mmol/L (136-145) Potassium Level 4.2 mmol/L (3.5-5.1) Chloride Level 108 mmol/L (98-107) Carbon Dioxide Level 23 mmol/L (21-32) Anion Gap 13 (6-14) Blood Urea Nitrogen 29 mg/dL (8-26) Creatinine 1.1 mg/dL (0.7-1.3) Estimated GFR (Cockcroft-Gault) 79.2 Glucose Level 187 mg/dL (70-99) Calcium Level 8.3 mg/dL (8.5-10.1) SJ-Qxy-Z-Type Natriuretic Peptide 1405 pg/mL (0-124) Urine Collection Type Unknown Urine Color Yellow Urine Clarity Clear Urine pH 5.0 (<5.0-8.0) Urine Specific [place] >=1.030 (1.000-1.030) Urine Protein 30 mg/dL (NEG-TRACE) Urine Glucose (UA) Negative mg/dL (NEG) Urine Ketones (Stick) Trace mg/dL (NEG) Urine Blood Negative (NEG) Urine Nitrite Negative (NEG) Urine Bilirubin Negative (NEG) Urine Urobilinogen Dipstick 0.2 mg/dL (0.2 mg/dL) Urine Leukocyte Esterase Negative (NEG) Urine RBC 0 /HPF (0-2) Urine WBC 1-4 /HPF (0-4) Urine Squamous Epithelial Cells Few /LPF Urine Bacteria 0 /HPF (0-FEW) Urine Sperm Present /HPF Urine Random Creatinine 161.0 mg/dL (Not Establ.) Urine Opiates Screen Neg (NEG) Urine Methadone Screen Neg (NEG) Urine Barbiturates Neg (NEG) Urine Phencyclidine Screen Neg (NEG) Urine Amphetamine/Methamphetamine Neg (NEG) Urine Benzodiazepines Screen Pos (NEG) Urine Cocaine Screen Neg (NEG) Urine Cannabinoids Screen Neg (NEG) Urine Ethyl Alcohol Neg (NEG) Comments cxr reviewed Patchy opacities right upper lung and bilateral lung bases likely atelectasis or consolidation, stable. Impression . IMPRESSION: 1. Acute hypoxemic respiratory failure. 2. Abnormal CT chest revealing no evidence of pulmonary embolism. There is evidence of bilateral infiltrates, interstitial in nature, possible pulmonary edema versus atypical pneumonia. 3. Possible gram-negative, gram-positive pneumonia. 4. SARS-CoV-2 negative, both rapid and nucleic amplification test, reportedly 5. Chronic anemia. 6. Small pericardial effusion. 7. Bilateral pleural effusion. 8. The patient unvaccinated for COVID-19. Plan . PLAN: 1. Continue vent support. setting reviewed decrease sedation sbt when alert 2. IV Lasix. 3. follow Cardiology rec 4. Monitor labs. 5. DVT prophylaxis. 6. GI prophylaxis. 7. abx discussed w dalia rt AMISH BENITEZ MD Apr 14, 2021 05:36
[2021-04-14 05:49] LABS: ALBUMIN 2.6 g/dL (3.4-5.0); ALBUMIN/GLOBULIN RATIO 0.8 (1.0-1.7); CALCIUM 8.3 mg/dL (8.5-10.1); CREATININE 1.7 mg/dL (0.7-1.3); GFR 47.9; POTASSIUM 4.3 mmol/L (3.5-5.1); TOTAL BILIRUBIN 0.3 mg/dL (0.2-1.0); TOTAL PROTEIN 5.8 g/dL (6.4-8.2)
[2021-04-14 05:51] LABS: MAGNESIUM 2.2 mg/dL (1.8-2.4)
[2021-04-14] MEDS: PIPERACILLIN/TAZOBACTAM 3.375 GM in IV NORMAL SALINE 50ML 50 ML IV SCH ×3 (05:54→17:17)
[2021-04-14 05:55] LABS: CHOLESTEROL/HDL RATIO 3.3
[2021-04-14] MEDS: PROPOFOL 100 ML IV PRN ×3 (05:56→22:56)
[2021-04-14] MEDS: FUROSEMIDE 40 MG/4 ML VIAL. IVP SCH ×2 (05:56→17:17)
[2021-04-14] MEDS: HEPARIN for SUB-Q USE 5,000 UNIT/ML VIAL. SQ SCH ×3 (05:57→20:36)
[2021-04-14 07:26] LABS: PLT ESTIMATE DECREASED (ADEQUATE)
[2021-04-14 07:40] LABS: BASE EXCESS ABG -2 mmol/L (-3-3); HCO3 ABG 21 mmol/L (21-28); PCO2 ABG 30 mmHg (35-46); PO2 ABG 142 mmHg (65-108); SAT O2 ABG 98 % (92-99)
[2021-04-14 07:43] LABS: FIO2 ABG 35
[2021-04-14] MEDS: DOXYCYCLINE HYCLATE 100 MG in IV DEXTROSE 5% 100ML 100 ML IV SCH ×2 (07:43→20:34)
[2021-04-14] MEDS: FAMOTIDINE 20 MG/2 ML VIAL IVP SCH ×2 (07:43→20:34)
[2021-04-14] MEDS: ELECTROLYTE (ICU) PROTOCOL. MC SCH (07:44)
--- NOTE | 2021-04-14 08:10 | RAD ---
EXAM: AP View of the chest DATE: 04/14/2021 6:42 AM INDICATION: Reason: CHF 109 / Spl. Instructions: / History: COMPARISON: 04/12/2021 FINDINGS: Cardiomediastinal silhouette is stable. Patchy opacities right upper lung and bilateral lung bases li [place] atelectasis or consolidation, stable. No pleural effusion or pneumothorax. Enteric tube appears looped within the stomach, tip projecting o jacoby the fundus. ET tube tip terminates approximately 6 cm above the kat. IMPRESSION: Patchy opacities right upper lung and bilateral lung bases likely atelectasis or consolidation, stabl e. Electronically signed by: Matthew Loving MD (04/14/2021 8:08 AM) [id number]
[2021-04-14] MEDS ORDERED: METF10007 PO (09:39)
[2021-04-14] MEDS ORDERED: DORZ10DR7 EACHEYE (09:39)
[2021-04-14] MEDS ORDERED: metFORMIN 500 MG TABLET PO SCH (11:30)
[2021-04-14] MEDS ORDERED: NON FORMULARY ITEM (Dorzolamide Hcl/Timolol Maleat (Dorzolamide-Timolol Eye Drops) 1 DROP) EACHEYE SCH (14:00)
[2021-04-14] MEDS: DORZOLAMIDE 2% OPHTH SOLUTION 10ML BOTTLE. OU SCH ×2 (14:11→20:34)
[2021-04-14] MEDS: TIMOLOL 0.5% OPHTH SOLUTION 5ML BOTTLE. OU SCH ×2 (14:11→20:34)
--- NOTE | 2021-04-14 15:53 | PDOC ---
[employer] PROGRESS NOTE Date of Service DOS: DATE: 04/14/21 TIME: 15:52 Chief Complaint Chief Complaint Acute hypoxic respiratory failure ACUTE systolic CHF, lasix acute pulmonary edema - poss pneumonia gram-negative versus gram-positive. Chronic anemia. Small pericardial effusion. Bilateral pleural effusion. History of Present Illness History of Present Illness cnt diuresiss, he failed vent wean, was RR too low, low vol, did not wake up fully BNP up CV consult follwing on vent, wean as able, Vitals/I&O Vitals/I&O: Vital Signs Date Time Temp Pulse Resp B/P (MAP) Pulse Ox O2 Delivery O2 Flow Rate FiO2 04/14/21 15:25 95 Ventilator 04/14/21 15:00 63 20 157/92 04/14/21 12:00 97.7 97.7 I & O 04/13/21 04/13/21 04/14/21 15:00 23:00 07:00 Intake Total 654 ml 641 ml Output Total 120 ml 105 ml 350 ml Balance -120 ml 549 ml 291 ml Physical Exam General: Other (Intubated on a ventilator.) Heart: Regular rate Lungs: Crackles, Other Abdomen: Normal bowel sounds Extremities: No cyanosis Skin: No breakdown, No significant lesion Labs Labs: Laboratory Tests Test 04/14/21 05:00 04/14/21 07:30 04/14/21 12:28 White Blood Count 8.7 x10^3/uL (4.0-11.0) Red Blood Count 3.03 x10^6/uL (4.30-5.70) Hemoglobin 9.9 g/dL (13.0-17.5) Hematocrit 29.9 % (39.0-53.0) Mean Corpuscular Volume 99 fL (79-100) Mean Corpuscular Hemoglobin 33 pg (25-35) Mean Corpuscular Hemoglobin Concent 33 g/dL (31-37) Red Cell Distribution Width 13.3 % (11.5-14.5) Platelet Count 95 x10^3/uL (140-400) Neutrophils (%) (Auto) 75 % (31-73) Lymphocytes (%) (Auto) 17 % (24-48) Monocytes (%) (Auto) 8 % (0-9) Eosinophils (%) (Auto) 0 % (0-3) Basophils (%) (Auto) 0 % (0-3) Neutrophils # (Auto) 6.5 x10^3/uL (1.8-7.7) Lymphocytes # (Auto) 1.5 x10^3/uL (1.0-4.8) Monocytes # (Auto) 0.7 x10^3/uL (0.0-1.1) Eosinophils # (Auto) 0.0 x10^3/uL (0.0-0.7) Basophils # (Auto) 0.0 x10^3/uL (0.0-0.2) Platelet Estimate Decreased (ADEQUATE) Large Platelets Present Sodium Level 141 mmol/L (136-145) Potassium Level 4.3 mmol/L (3.5-5.1) Chloride Level 107 mmol/L (98-107) Carbon Dioxide Level 22 mmol/L (21-32) Anion Gap 12 (6-14) Blood Urea Nitrogen 48 mg/dL (8-26) Creatinine 1.7 mg/dL (0.7-1.3) Estimated GFR (Cockcroft-Gault) 47.9 BUN/Creatinine Ratio 28 (6-20) Glucose Level 169 mg/dL (70-99) Calcium Level 8.3 mg/dL (8.5-10.1) Magnesium Level 2.2 mg/dL (1.8-2.4) Total Bilirubin 0.3 mg/dL (0.2-1.0) Aspartate Amino Transf (AST/SGOT) 9 U/L (15-37) Alanine Aminotransferase (ALT/SGPT) 13 U/L (16-63) Alkaline Phosphatase 52 U/L (46-116) Total Protein 5.8 g/dL (6.4-8.2) Albumin 2.6 g/dL (3.4-5.0) Albumin/Globulin Ratio 0.8 (1.0-1.7) Triglycerides Level 113 mg/dL (0-150) Cholesterol Level 143 mg/dL (0-200) LDL Cholesterol, Calculated 77 mg/dL (0-100) VLDL Cholesterol, Calculated 23 mg/dL (0-40) Non-HDL Cholesterol Calculated 100 mg/dL (0-129) HDL Cholesterol 43 mg/dL (40-60) Cholesterol/HDL Ratio 3.3 O2 Saturation 98 % (92-99) Arterial Blood pH 7.47 (7.35-7.45) Arterial Blood pCO2 at Patient Temp 30 mmHg (35-46) Arterial Blood pO2 at Patient Temp 142 mmHg (65-108) Arterial Blood HCO3 21 mmol/L (21-28) Arterial Blood Base Excess -2 mmol/L (-3-3) FiO2 35 Glucose (Fingerstick) 189 mg/dL (70-99) Comment Review of Relevant I have reviewed the following items carmen (where applicable) has been applied. Medications: Current Medications Medications (Trade) Dose Ordered Sig/Radhames Route PRN Reason Start Time Stop Time Status Last Admin Dose Admin Furosemide (Lasix) 40 mg [id number] IVP 04/13/21 18:00 04/14/21 05:56 Amlodipine Besylate (Norvasc) 2.5 mg DAILY PO 04/14/21 09:30 04/14/21 10:49 Metformin HCl (Glucophage) 1,000 mg [id number] PO 04/14/21 11:30 04/14/21 12:34 Dorzolamide HCl (Trusopt) 1 drop TID OU 04/14/21 14:00 04/14/21 14:11 Timolol Maleate (Timoptic 0.5% Oph) 1 drop TID OU 04/14/21 14:00 04/14/21 14:11 Justifications for Admission Other Justification LEYDI RIZO MD Apr 14, 2021 15:53
[2021-04-14] MEDS ORDERED: DEXTROSE 50% 25 GM / 50ML DISP.SYRIN. IV PRN (16:45)
[2021-04-14] MEDS ORDERED: INSULIN LISPRO 300 UNITS/3 ML VIAL. SQ SCH (17:00)
--- NOTE | 2021-04-14 17:01 | PDOC ---
PROGRESS NOTES Date of Service DATE: 04/14/21 TIME: 16:59 Subjective Subjective Patient seen and examined Objective Objective Vital Signs Date Time Temp Pulse Resp B/P (MAP) Pulse Ox O2 Delivery O2 Flow Rate FiO2 04/14/21 16:00 63 20 169/83 100 Ventilator 04/14/21 12:00 97.7 97.7 Intake and Output 04/14/21 07:00 Intake Total 1295 ml Output Total 575 ml Balance 720 ml Intake IV Total 948 ml Tube Feeding 222 ml Other 125 ml Output Urine Total 575 ml Physical Exam Abdomen: Normal bowel sounds Heart: Regular rate General: Other (Intubated on a ventilator.) Lungs: Other (Decreased breath sounds) Assessment Assessment 1. Acute hypoxic respiratory failure. Patient has been intubated and is followed by the pulmonary service. Limited history available. We will continue with diuresis and monitoring lab. Troponin normal at [facility]. BNP elevated at 05/15/2004. Will continue present medications and check an echocardiogram. 2. Probable systolic heart failure. Continue treatment as above. Monitoring lab. Checking echo. 3. Imaging as above as above shows a head CTA with no acute intracranial abnormalities. Comment Review of Relevant I have reviewed the following items carmen (where applicable) has been applied. Labs Laboratory Tests Test 04/12/21 20:49 04/13/21 07:45 04/13/21 08:40 04/13/21 12:22 Glucose (Fingerstick) 135 mg/dL (70-99) O2 Saturation 97 % (92-99) Arterial Blood pH 7.37 (7.35-7.45) Arterial Blood pCO2 at Patient Temp 36 mmHg (35-46) Arterial Blood pO2 at Patient Temp 116 mmHg (65-108) Arterial Blood HCO3 20 mmol/L (21-28) Arterial Blood Base Excess -4 mmol/L (-3-3) FiO2 40 White Blood Count 9.4 x10^3/uL (4.0-11.0) Red Blood Count 3.13 x10^6/uL (4.30-5.70) Hemoglobin 10.3 g/dL (13.0-17.5) Hematocrit 30.9 % (39.0-53.0) Mean Corpuscular Volume 99 fL (79-100) Mean Corpuscular Hemoglobin 33 pg (25-35) Mean Corpuscular Hemoglobin Concent 33 g/dL (31-37) Red Cell Distribution Width 12.9 % (11.5-14.5) Platelet Count 110 x10^3/uL (140-400) Neutrophils (%) (Auto) 89 % (31-73) Lymphocytes (%) (Auto) 9 % (24-48) Monocytes (%) (Auto) 2 % (0-9) Eosinophils (%) (Auto) 0 % (0-3) Basophils (%) (Auto) 0 % (0-3) Neutrophils # (Auto) 8.3 x10^3/uL (1.8-7.7) Lymphocytes # (Auto) 0.8 x10^3/uL (1.0-4.8) Monocytes # (Auto) 0.2 x10^3/uL (0.0-1.1) Eosinophils # (Auto) 0.0 x10^3/uL (0.0-0.7) Basophils # (Auto) 0.0 x10^3/uL (0.0-0.2) Sodium Level 144 mmol/L (136-145) Potassium Level 4.2 mmol/L (3.5-5.1) Chloride Level 108 mmol/L (98-107) Carbon Dioxide Level 23 mmol/L (21-32) Anion Gap 13 (6-14) Blood Urea Nitrogen 29 mg/dL (8-26) Creatinine 1.1 mg/dL (0.7-1.3) Estimated GFR (Cockcroft-Gault) 79.2 Glucose Level 187 mg/dL (70-99) Calcium Level 8.3 mg/dL (8.5-10.1) IK-Lhl-Q-Type Natriuretic Peptide 1405 pg/mL (0-124) Urine Collection Type Unknown Urine Color Yellow Urine Clarity Clear Urine pH 5.0 (<5.0-8.0) Urine Specific [place] >=1.030 (1.000-1.030) Urine Protein 30 mg/dL (NEG-TRACE) Urine Glucose (UA) Negative mg/dL (NEG) Urine Ketones (Stick) Trace mg/dL (NEG) Urine Blood Negative (NEG) Urine Nitrite Negative (NEG) Urine Bilirubin Negative (NEG) Urine Urobilinogen Dipstick 0.2 mg/dL (0.2 mg/dL) Urine Leukocyte Esterase Negative (NEG) Urine RBC 0 /HPF (0-2) Urine WBC 1-4 /HPF (0-4) Urine Squamous Epithelial Cells Few /LPF Urine Bacteria 0 /HPF (0-FEW) Urine Sperm Present /HPF Urine Random Creatinine 161.0 mg/dL (Not Establ.) Urine Opiates Screen Neg (NEG) Urine Methadone Screen Neg (NEG) Urine Barbiturates Neg (NEG) Urine Phencyclidine Screen Neg (NEG) Urine Amphetamine/Methamphetamine Neg (NEG) Urine Benzodiazepines Screen Pos (NEG) Urine Cocaine Screen Neg (NEG) Urine Cannabinoids Screen Neg (NEG) Urine Ethyl Alcohol Neg (NEG) Test 04/14/21 05:00 04/14/21 07:30 04/14/21 12:28 White Blood Count 8.7 x10^3/uL (4.0-11.0) Red Blood Count 3.03 x10^6/uL (4.30-5.70) Hemoglobin 9.9 g/dL (13.0-17.5) Hematocrit 29.9 % (39.0-53.0) Mean Corpuscular Volume 99 fL (79-100) Mean Corpuscular Hemoglobin 33 pg (25-35) Mean Corpuscular Hemoglobin Concent 33 g/dL (31-37) Red Cell Distribution Width 13.3 % (11.5-14.5) Platelet Count 95 x10^3/uL (140-400) Neutrophils (%) (Auto) 75 % (31-73) Lymphocytes (%) (Auto) 17 % (24-48) Monocytes (%) (Auto) 8 % (0-9) Eosinophils (%) (Auto) 0 % (0-3) Basophils (%) (Auto) 0 % (0-3) Neutrophils # (Auto) 6.5 x10^3/uL (1.8-7.7) Lymphocytes # (Auto) 1.5 x10^3/uL (1.0-4.8) Monocytes # (Auto) 0.7 x10^3/uL (0.0-1.1) Eosinophils # (Auto) 0.0 x10^3/uL (0.0-0.7) Basophils # (Auto) 0.0 x10^3/uL (0.0-0.2) Platelet Estimate Decreased (ADEQUATE) Large Platelets Present Sodium Level 141 mmol/L (136-145) Potassium Level 4.3 mmol/L (3.5-5.1) Chloride Level 107 mmol/L (98-107) Carbon Dioxide Level 22 mmol/L (21-32) Anion Gap 12 (6-14) Blood Urea Nitrogen 48 mg/dL (8-26) Creatinine 1.7 mg/dL (0.7-1.3) Estimated GFR (Cockcroft-Gault) 47.9 BUN/Creatinine Ratio 28 (6-20) Glucose Level 169 mg/dL (70-99) Calcium Level 8.3 mg/dL (8.5-10.1) Magnesium Level 2.2 mg/dL (1.8-2.4) Total Bilirubin 0.3 mg/dL (0.2-1.0) Aspartate Amino Transf (AST/SGOT) 9 U/L (15-37) Alanine Aminotransferase (ALT/SGPT) 13 U/L (16-63) Alkaline Phosphatase 52 U/L (46-116) Total Protein 5.8 g/dL (6.4-8.2) Albumin 2.6 g/dL (3.4-5.0) Albumin/Globulin Ratio 0.8 (1.0-1.7) Triglycerides Level 113 mg/dL (0-150) Cholesterol Level 143 mg/dL (0-200) LDL Cholesterol, Calculated 77 mg/dL (0-100) VLDL Cholesterol, Calculated 23 mg/dL (0-40) Non-HDL Cholesterol Calculated 100 mg/dL (0-129) HDL Cholesterol 43 mg/dL (40-60) Cholesterol/HDL Ratio 3.3 O2 Saturation 98 % (92-99) Arterial Blood pH 7.47 (7.35-7.45) Arterial Blood pCO2 at Patient Temp 30 mmHg (35-46) Arterial Blood pO2 at Patient Temp 142 mmHg (65-108) Arterial Blood HCO3 21 mmol/L (21-28) Arterial Blood Base Excess -2 mmol/L (-3-3) FiO2 35 Glucose (Fingerstick) 189 mg/dL (70-99) Laboratory Tests Test 04/14/21 05:00 04/14/21 07:30 04/14/21 12:28 White Blood Count 8.7 x10^3/uL (4.0-11.0) Red Blood Count 3.03 x10^6/uL (4.30-5.70) Hemoglobin 9.9 g/dL (13.0-17.5) Hematocrit 29.9 % (39.0-53.0) Mean Corpuscular Volume 99 fL (79-100) Mean Corpuscular Hemoglobin 33 pg (25-35) Mean Corpuscular Hemoglobin Concent 33 g/dL (31-37) Red Cell Distribution Width 13.3 % (11.5-14.5) Platelet Count 95 x10^3/uL (140-400) Neutrophils (%) (Auto) 75 % (31-73) Lymphocytes (%) (Auto) 17 % (24-48) Monocytes (%) (Auto) 8 % (0-9) Eosinophils (%) (Auto) 0 % (0-3) Basophils (%) (Auto) 0 % (0-3) Neutrophils # (Auto) 6.5 x10^3/uL (1.8-7.7) Lymphocytes # (Auto) 1.5 x10^3/uL (1.0-4.8) Monocytes # (Auto) 0.7 x10^3/uL (0.0-1.1) Eosinophils # (Auto) 0.0 x10^3/uL (0.0-0.7) Basophils # (Auto) 0.0 x10^3/uL (0.0-0.2) Platelet Estimate Decreased (ADEQUATE) Large Platelets Present Sodium Level 141 mmol/L (136-145) Potassium Level 4.3 mmol/L (3.5-5.1) Chloride Level 107 mmol/L (98-107) Carbon Dioxide Level 22 mmol/L (21-32) Anion Gap 12 (6-14) Blood Urea Nitrogen 48 mg/dL (8-26) Creatinine 1.7 mg/dL (0.7-1.3) Estimated GFR (Cockcroft-Gault) 47.9 BUN/Creatinine Ratio 28 (6-20) Glucose Level 169 mg/dL (70-99) Calcium Level 8.3 mg/dL (8.5-10.1) Magnesium Level 2.2 mg/dL (1.8-2.4) Total Bilirubin 0.3 mg/dL (0.2-1.0) Aspartate Amino Transf (AST/SGOT) 9 U/L (15-37) Alanine Aminotransferase (ALT/SGPT) 13 U/L (16-63) Alkaline Phosphatase 52 U/L (46-116) Total Protein 5.8 g/dL (6.4-8.2) Albumin 2.6 g/dL (3.4-5.0) Albumin/Globulin Ratio 0.8 (1.0-1.7) Triglycerides Level 113 mg/dL (0-150) Cholesterol Level 143 mg/dL (0-200) LDL Cholesterol, Calculated 77 mg/dL (0-100) VLDL Cholesterol, Calculated 23 mg/dL (0-40) Non-HDL Cholesterol Calculated 100 mg/dL (0-129) HDL Cholesterol 43 mg/dL (40-60) Cholesterol/HDL Ratio 3.3 O2 Saturation 98 % (92-99) Arterial Blood pH 7.47 (7.35-7.45) Arterial Blood pCO2 at Patient Temp 30 mmHg (35-46) Arterial Blood pO2 at Patient Temp 142 mmHg (65-108) Arterial Blood HCO3 21 mmol/L (21-28) Arterial Blood Base Excess -2 mmol/L (-3-3) FiO2 35 Glucose (Fingerstick) 189 mg/dL (70-99) Medications Current Medications Fentanyl Citrate 30 ml @ 2.5 mls/hr CONT PRN IV SEE PROTOCOL Last administered on 04/14/21at 12:31; Start 04/12/21 at 20:15 Propofol 100 ml @ 0 mls/hr CONT PRN IV PER PROTOCOL Last administered on 04/12/21at 20:32; Start 04/12/21 at 20:15; Stop 04/12/21 at 20:35; Status DC Vecuronium [place] (Norcuron Bolus) 6 mg PRN 1X PRN IV VENT INDUCTION; Start 04/12/21 at 20:15; Stop 04/13/21 at 20:14; Status DC Sodium Chloride 500 ml @ 500 mls/hr 1X PRN PRN IV SEE COMMENTS; Start 04/12/21 at 20:15 Atropine Sulfate (ATROPINE 0.5mg SYRINGE) 0.5 mg PRN Q5MIN PRN IV SEE COMMENTS; Start 04/12/21 at 20:15; Status Cancel Famotidine (Pepcid Vial) 20 mg BID IVP Last administered on 04/14/21at 07:43; Start 04/12/21 at 21:00 Propofol 100 ml @ 2.418 mls/ hr CONT PRN IV PER PROTOCOL Last administered on 04/14/21at 15:50; Start 04/12/21 at 20:35 Acetaminophen (Tylenol) 650 mg PRN Q6HRS PRN PO Headaches, Temp > 101.5'; Start 04/12/21 at 21:45 Lorazepam (Ativan Inj) 0.5 mg PRN Q6HRS PRN IVP ANXIETY / AGITATION; Start 04/12/21 at 21:45 Ondansetron HCl (Zofran) 4 mg PRN Q6HRS PRN IVP NAUSEA/VOMITING 1ST CHOICE; Start 04/12/21 at 21:45 Calcium Carbonate/ Glycine (Tums) 500 mg PRN Q3HRS PRN PO HEARTBURN / GAS; Start 04/12/21 at 21:45 Famotidine (Pepcid) 20 mg BID PO ; Start 04/13/21 at 09:00; Status UNV Info (Icu Electrolyte Protocol) 1 ea DAILY MC ; Start 04/13/21 at 09:00 Heparin Sodium (Porcine) (Heparin Sodium) 5,000 unit Q8HRS SQ Last administered on 04/14/21at 14:13; Start 04/12/21 at 22:00 Sodium Chloride (Normal Saline Flush) 3 ml QSHIFT PRN IV AFTER MEDS AND BLOOD DRAWS; Start 04/12/21 at 21:45 Piperacillin Sod/ Tazobactam Sod (Zosyn Per Pharmacy) 1 each PRN DAILY PRN MC SEE COMMENTS; Start 04/12/21 at 21:45 Methylprednisolone Sodium Succinate (SOLU-Medrol 125MG VIAL) 125 mg 1X ONCE IV Last administered on 04/12/21at 22:05; Start 04/12/21 at 22:00; Stop 04/12/21 at 22:01; Status DC Doxycycline Hyclate 100 mg/ Dextrose 100 ml @ 50 mls/hr Q12HR IV Last administered on 04/14/21at 07:43; Start 04/13/21 at 09:00 Piperacillin Sod/ Tazobactam Sod 3.375 gm/Sodium Chloride 50 ml @ 100 mls/hr Q6HRS IV Last administered on 04/14/21at 12:35; Start 04/13/21 at 00:00 Methylprednisolone Sodium Succinate (SOLU-Medrol 125MG VIAL) 125 mg BID IV ; Start 04/13/21 at 11:30; Stop 04/13/21 at 11:29; Status DC Furosemide (Lasix) 40 mg BID92 PEG ; Start 04/13/21 at 21:00; Stop 04/13/21 at 12:46; Status DC Furosemide (Lasix) 40 mg 1X ONCE IVP Last administered on 04/13/21at 12:09; Start 04/13/21 at 12:30; Stop 04/13/21 at 12:31; Status DC Furosemide (Lasix) 40 mg BID92 IVP ; Start 04/13/21 at 14:00; Stop 04/13/21 at 13:43; Status DC Furosemide (Lasix) 40 mg BID76 IVP Last administered on 04/14/21at 05:56; Start 04/13/21 at 18:00 Vecuronium [place] (Norcuron Bolus) 6 mg PRN Q6HRS PRN IV VENTILATOR COMPLIANCE; Start 04/14/21 at 05:15 Vecuronium [place] 50 mg/ Sodium Chloride 50 ml @ 3.767 mls/ hr CONT PRN IV PER PROTOCOL; Start 04/14/21 at 05:15 Metoprolol Tartrate (Lopressor Vial) 5 mg PRN Q6HRS PRN IVP HYPERTENSION; Start 04/14/21 at 09:00 Amlodipine Besylate (Norvasc) 2.5 mg DAILY PO Last administered on 04/14/21at 10:49; Start 04/14/21 at 09:30 Non-Formulary Medication (Dorzolamide Hcl/ Timolol Maleat (Dorzolamide-Timolol Eye Drops)) 1 drop TID EACHEYE ; Start 04/14/21 at 14:00; Status UNV Metformin HCl (Glucophage) 1,000 mg BIDWMEALS PO Last administered on 04/14/21at 12:34; Start 04/14/21 at 11:30; Stop 04/14/21 at 16:45; Status DC Dorzolamide HCl (Trusopt) 1 drop TID OU Last administered on 04/14/21at 14:11; Start 04/14/21 at 14:00 Timolol Maleate (Timoptic 0.5% [facility]) 1 drop TID OU Last administered on 04/14/21at 14:11; Start 04/14/21 at 14:00 Insulin Human Lispro (HumaLOG) 0-5 UNITS TIDWMEALS SQ ; Start 04/14/21 at 17:00 Dextrose (Dextrose 50%-Water Syringe) 12.5 gm PRN Q15MIN PRN IV SEE COMMENTS; Start 04/14/21 at 16:45 Active Scripts Active Reported Metformin Hcl 1,000 Mg Tablet 1,000 Mg PO BIDWMEALS Dorzolamide-Timolol Eye Drops (Dorzolamide Hcl/Timolol Maleat) 10 Ml Drops 1 Drop EACHEYE TID Vitals/I & O Vital Sign - Last 24 Hours 04/13/21 04/13/21 04/13/21 04/13/21 17:00 17:16 18:00 18:09 Pulse 71 51 Resp 20 20 23 B/P (MAP) 128/72 126/59 Pulse Ox 94 100 100 100 O2 Delivery Ventilator Ventilator Ventilator Ventilator 04/13/21 04/13/21 04/13/21 04/13/21 18:39 19:13 20:05 20:15 Temp 97.7 97.7 Pulse 49 48 Resp 20 20 20 B/P (MAP) 87/43 96/47 Pulse Ox 100 100 100 O2 Delivery Ventilator Ventilator Mechanical Ventilator Ventilator 04/13/21 04/13/21 04/13/21 04/13/21 20:44 20:45 21:00 22:00 Pulse 44 48 46 Resp 20 20 B/P (MAP) 105/50 111/51 Pulse Ox 100 100 100 O2 Delivery Ventilator Ventilator Ventilator 04/13/21 04/13/21 04/14/21 04/14/21 23:00 23:59 00:00 00:10 Pulse 46 46 Resp 20 20 B/P (MAP) 111/51 121/59 Pulse Ox 100 100 100 O2 Delivery Ventilator Mechanical Ventilator Ventilator Ventilator 04/14/21 04/14/21 04/14/21 04/14/21 01:09 02:02 02:58 03:00 Temp 97.9 97.9 Pulse 46 43 42 Resp 20 20 20 B/P (MAP) 127/51 146/69 151/74 Pulse Ox 100 100 100 100 O2 Delivery Ventilator Ventilator Ventilator Ventilator 04/14/21 04/14/21 04/14/21 04/14/21 03:57 04:00 04:57 05:41 Pulse 43 43 43 Resp 20 20 20 B/P (MAP) 156/81 162/72 166/73 Pulse Ox 100 100 100 O2 Delivery Mechanical Ventilator Ventilator Ventilator Ventilator 04/14/21 04/14/21 04/14/21 04/14/21 05:41 07:00 07:27 08:00 Temp 96.0 96.0 Pulse 43 45 Resp 20 20 B/P (MAP) 156/72 154/77 Pulse Ox 100 100 100 100 O2 Delivery Ventilator Ventilator Ventilator Ventilator 04/14/21 04/14/21 04/14/21 04/14/21 08:00 09:00 10:00 10:49 Pulse 50 51 52 Resp 20 20 B/P (MAP) 168/82 155/85 164/80 Pulse Ox 100 100 O2 Delivery Mechanical Ventilator Ventilator Ventilator 04/14/21 04/14/21 04/14/21 04/14/21 11:00 11:50 12:00 12:00 Temp 97.7 97.7 Pulse 54 53 Resp 20 20 B/P (MAP) 155/76 154/78 Pulse Ox 100 100 100 O2 Delivery Ventilator Ventilator Ventilator Mechanical Ventilator 04/14/21 04/14/21 04/14/21 04/14/21 12:31 13:00 14:00 14:14 Pulse 52 61 Resp 20 20 20 20 B/P (MAP) 154/72 146/72 Pulse Ox 100 100 100 100 O2 Delivery Ventilator Ventilator Ventilator Ventilator 04/14/21 04/14/21 04/14/21 04/14/21 15:00 15:25 16:00 16:00 Pulse 63 63 Resp 20 20 B/P (MAP) 157/92 169/83 Pulse Ox 100 95 100 O2 Delivery Ventilator Ventilator Mechanical Ventilator Ventilator Intake and Output 04/13/21 04/13/21 04/14/21 15:00 23:00 07:00 Intake Total 654 ml 641 ml Output Total 120 ml 105 ml 350 ml Balance -120 ml 549 ml 291 ml Justifications for Admission Other Justification SHAUNNA MONTAGUE MD Apr 14, 2021 17:01
[2021-04-15] VITALS (24 sets, daily range): BP systolic 107–217; BP diastolic 53–104
[2021-04-15] MEDS: PROPOFOL 100 ML IV PRN ×3 (00:04→19:51)
[2021-04-15] MEDS: PIPERACILLIN/TAZOBACTAM 3.375 GM in IV NORMAL SALINE 50ML 50 ML IV SCH ×5 (00:22→23:56)
[2021-04-15] MEDS: INSULIN LISPRO 300 UNITS/3 ML VIAL. SQ SCH ×5 (00:25→23:56)
[2021-04-15 05:04] LABS: HEMATOCRIT 28.7 % (39.0-53.0); HEMOGLOBIN 9.4 g/dL (13.0-17.5); RED BLOOD COUNT 2.95 x10^6/uL (4.30-5.70); RED CELL DISTRIBUTION WIDTH 13.3 % (11.5-14.5); WHITE BLOOD COUNT 7.8 x10^3/uL (4.0-11.0)
--- NOTE | 2021-04-15 05:36 | PDOC ---
PULMONARY PROGRESS NOTES DATE: 04/15/21 TIME: 05:35 Subjective on vent sedated on propofol fentanyl [id number]% peep 5 small ett secretion didnt tolerate sbt yesterday Vitals Vital Signs Date Time Temp Pulse Resp B/P (MAP) Pulse Ox O2 Delivery O2 Flow Rate FiO2 04/15/21 05:32 100 Ventilator 04/15/21 04:58 54 20 122/65 04/15/21 03:58 98.8 98.8 Comments ros unable to obtain on vent sedated HEENT: Other (nc at perrl nose clear orally intubated neck no lad no th yromegaly) Lungs: Crackles, Other Cardiovascular: S1, S2 Abdomen: Soft Extremities: Other Skin: Warm Labs Laboratory Tests Test 04/13/21 07:45 04/13/21 08:40 04/13/21 12:22 04/14/21 05:00 O2 Saturation 97 % (92-99) Arterial Blood pH 7.37 (7.35-7.45) Arterial Blood pCO2 at Patient Temp 36 mmHg (35-46) Arterial Blood pO2 at Patient Temp 116 mmHg (65-108) Arterial Blood HCO3 20 mmol/L (21-28) Arterial Blood Base Excess -4 mmol/L (-3-3) FiO2 40 White Blood Count 9.4 x10^3/uL (4.0-11.0) 8.7 x10^3/uL (4.0-11.0) Red Blood Count 3.13 x10^6/uL (4.30-5.70) 3.03 x10^6/uL (4.30-5.70) Hemoglobin 10.3 g/dL (13.0-17.5) 9.9 g/dL (13.0-17.5) Hematocrit 30.9 % (39.0-53.0) 29.9 % (39.0-53.0) Mean Corpuscular Volume 99 fL (79-100) 99 fL (79-100) Mean Corpuscular Hemoglobin 33 pg (25-35) 33 pg (25-35) Mean Corpuscular Hemoglobin Concent 33 g/dL (31-37) 33 g/dL (31-37) Red Cell Distribution Width 12.9 % (11.5-14.5) 13.3 % (11.5-14.5) Platelet Count 110 x10^3/uL (140-400) 95 x10^3/uL (140-400) Neutrophils (%) (Auto) 89 % (31-73) 75 % (31-73) Lymphocytes (%) (Auto) 9 % (24-48) 17 % (24-48) Monocytes (%) (Auto) 2 % (0-9) 8 % (0-9) Eosinophils (%) (Auto) 0 % (0-3) 0 % (0-3) Basophils (%) (Auto) 0 % (0-3) 0 % (0-3) Neutrophils # (Auto) 8.3 x10^3/uL (1.8-7.7) 6.5 x10^3/uL (1.8-7.7) Lymphocytes # (Auto) 0.8 x10^3/uL (1.0-4.8) 1.5 x10^3/uL (1.0-4.8) Monocytes # (Auto) 0.2 x10^3/uL (0.0-1.1) 0.7 x10^3/uL (0.0-1.1) Eosinophils # (Auto) 0.0 x10^3/uL (0.0-0.7) 0.0 x10^3/uL (0.0-0.7) Basophils # (Auto) 0.0 x10^3/uL (0.0-0.2) 0.0 x10^3/uL (0.0-0.2) Sodium Level 144 mmol/L (136-145) 141 mmol/L (136-145) Potassium Level 4.2 mmol/L (3.5-5.1) 4.3 mmol/L (3.5-5.1) Chloride Level 108 mmol/L (98-107) 107 mmol/L (98-107) Carbon Dioxide Level 23 mmol/L (21-32) 22 mmol/L (21-32) Anion Gap 13 (6-14) 12 (6-14) Blood Urea Nitrogen 29 mg/dL (8-26) 48 mg/dL (8-26) Creatinine 1.1 mg/dL (0.7-1.3) 1.7 mg/dL (0.7-1.3) Estimated GFR (Cockcroft-Gault) 79.2 47.9 Glucose Level 187 mg/dL (70-99) 169 mg/dL (70-99) Calcium Level 8.3 mg/dL (8.5-10.1) 8.3 mg/dL (8.5-10.1) [id number]-Type Natriuretic Peptide 1405 pg/mL (0-124) Urine Collection Type Unknown Urine Color Yellow Urine Clarity Clear Urine pH 5.0 (<5.0-8.0) Urine Specific [place] >=1.030 (1.000-1.030) Urine Protein 30 mg/dL (NEG-TRACE) Urine Glucose (UA) Negative mg/dL (NEG) Urine Ketones (Stick) Trace mg/dL (NEG) Urine Blood Negative (NEG) Urine Nitrite Negative (NEG) Urine Bilirubin Negative (NEG) Urine Urobilinogen Dipstick 0.2 mg/dL (0.2 mg/dL) Urine Leukocyte Esterase Negative (NEG) Urine RBC 0 /HPF (0-2) Urine WBC 1-4 /HPF (0-4) Urine Squamous Epithelial Cells Few /LPF Urine Bacteria 0 /HPF (0-FEW) Urine Sperm Present /HPF Urine Random Creatinine 161.0 mg/dL (Not Establ.) Urine Random Sodium <20 mmol/L (Not Estab.) Urine Opiates Screen Neg (NEG) Urine Methadone Screen Neg (NEG) Urine Barbiturates Neg (NEG) Urine Phencyclidine Screen Neg (NEG) Urine Amphetamine/Methamphetamine Neg (NEG) Urine Benzodiazepines Screen Pos (NEG) Urine Cocaine Screen Neg (NEG) Urine Cannabinoids Screen Neg (NEG) Urine Ethyl Alcohol Neg (NEG) Platelet Estimate Decreased (ADEQUATE) Large Platelets Present BUN/Creatinine Ratio 28 (6-20) Magnesium Level 2.2 mg/dL (1.8-2.4) Total Bilirubin 0.3 mg/dL (0.2-1.0) Aspartate Amino Transf (AST/SGOT) 9 U/L (15-37) Alanine Aminotransferase (ALT/SGPT) 13 U/L (16-63) Alkaline Phosphatase 52 U/L (46-116) Total Protein 5.8 g/dL (6.4-8.2) Albumin 2.6 g/dL (3.4-5.0) Albumin/Globulin Ratio 0.8 (1.0-1.7) Triglycerides Level 113 mg/dL (0-150) Cholesterol Level 143 mg/dL (0-200) LDL Cholesterol, Calculated 77 mg/dL (0-100) VLDL Cholesterol, Calculated 23 mg/dL (0-40) Non-HDL Cholesterol Calculated 100 mg/dL (0-129) HDL Cholesterol 43 mg/dL (40-60) Cholesterol/HDL Ratio 3.3 Test 04/14/21 07:30 04/14/21 12:28 04/14/21 17:19 04/15/21 00:24 O2 Saturation 98 % (92-99) Arterial Blood pH 7.47 (7.35-7.45) Arterial Blood pCO2 at Patient Temp 30 mmHg (35-46) Arterial Blood pO2 at Patient Temp 142 mmHg (65-108) Arterial Blood HCO3 21 mmol/L (21-28) Arterial Blood Base Excess -2 mmol/L (-3-3) FiO2 35 Glucose (Fingerstick) 189 mg/dL (70-99) 156 mg/dL (70-99) 169 mg/dL (70-99) Test 04/15/21 04:30 White Blood Count 7.8 x10^3/uL (4.0-11.0) Red Blood Count 2.95 x10^6/uL (4.30-5.70) Hemoglobin 9.4 g/dL (13.0-17.5) Hematocrit 28.7 % (39.0-53.0) Mean Corpuscular Volume 98 fL (79-100) Mean Corpuscular Hemoglobin 32 pg (25-35) Mean Corpuscular Hemoglobin Concent 33 g/dL (31-37) Red Cell Distribution Width 13.3 % (11.5-14.5) Platelet Count 109 x10^3/uL (140-400) Laboratory Tests Test 04/14/21 07:30 04/14/21 12:28 04/14/21 17:19 04/15/21 00:24 O2 Saturation 98 % (92-99) Arterial Blood pH 7.47 (7.35-7.45) Arterial Blood pCO2 at Patient Temp 30 mmHg (35-46) Arterial Blood pO2 at Patient Temp 142 mmHg (65-108) Arterial Blood HCO3 21 mmol/L (21-28) Arterial Blood Base Excess -2 mmol/L (-3-3) FiO2 35 Glucose (Fingerstick) 189 mg/dL (70-99) 156 mg/dL (70-99) 169 mg/dL (70-99) Test 04/15/21 04:30 White Blood Count 7.8 x10^3/uL (4.0-11.0) Red Blood Count 2.95 x10^6/uL (4.30-5.70) Hemoglobin 9.4 g/dL (13.0-17.5) Hematocrit 28.7 % (39.0-53.0) Mean Corpuscular Volume 98 fL (79-100) Mean Corpuscular Hemoglobin 32 pg (25-35) Mean Corpuscular Hemoglobin Concent 33 g/dL (31-37) Red Cell Distribution Width 13.3 % (11.5-14.5) Platelet Count 109 x10^3/uL (140-400) Medications Active Scripts Medications Dose Route/Sig Max Daily Dose Days Date Category Metformin Hcl 1,000 Mg Tablet 1,000 Mg PO BIDWMEALS 04/14/21 Reported Dorzolamide-Timolol Eye Drops (Dorzolamide Hcl/Timolol Maleat) 10 Ml Drops 1 Drop EACHEYE TID 04/14/21 Reported Comments cxr reviewed Patchy opacities right upper lung and bilateral lung bases likely atelectasis or consolidation, stable. Impression . IMPRESSION: 1. Acute hypoxemic respiratory failure. 2. Abnormal CT chest revealing no evidence of pulmonary embolism. There is evidence of bilateral infiltrates, interstitial in nature, possible pulmonary edema versus atypical pneumonia. 3. Possible gram-negative, gram-positive pneumonia. 4. SARS-CoV-2 negative, both rapid and nucleic amplification test, reportedly 5. Chronic anemia. 6. Small pericardial effusion. 7. Bilateral pleural effusion. 8. The patient unvaccinated for COVID-19. Plan . 04/15 1. Continue vent support. setting reviewed decrease sedation sbt when alert 2. IV Lasix. keep I<O monitor k cr 3. follow Cardiology rec 4. Monitor labs. 5. DVT prophylaxis. 6. GI prophylaxis. 7. abx discussed w rn rt PLAN: 1. Continue vent support. setting reviewed decrease sedation sbt when alert 2. IV Lasix. 3. follow Cardiology rec 4. Monitor labs. 5. DVT prophylaxis. 6. GI prophylaxis. 7. abx discussed w rn rt AMISH BENITEZ MD Apr 15, 2021 05:36
[2021-04-15] MEDS: FUROSEMIDE 40 MG/4 ML VIAL. IVP SCH ×2 (05:38→17:24)
[2021-04-15] MEDS: HEPARIN for SUB-Q USE 5,000 UNIT/ML VIAL. SQ SCH ×3 (05:40→21:17)
[2021-04-15 05:46] LABS: CALCIUM 8.1 mg/dL (8.5-10.1); CREATININE 1.5 mg/dL (0.7-1.3); GFR 55.4; POTASSIUM 3.5 mmol/L (3.5-5.1)
[2021-04-15 07:45] LABS: BASE EXCESS ABG 0 mmol/L (-3-3); HCO3 ABG 23 mmol/L (21-28); PCO2 ABG 32 mmHg (35-46); PO2 ABG 103 mmHg (65-108); SAT O2 ABG 97 % (92-99)
[2021-04-15 07:47] LABS: FIO2 ABG 35
[2021-04-15] MEDS: FAMOTIDINE 20 MG/2 ML VIAL IVP SCH ×2 (08:20→21:16)
[2021-04-15] MEDS: DOXYCYCLINE HYCLATE 100 MG TABLET PO SCH ×2 (08:20→21:16)
[2021-04-15] MEDS: DORZOLAMIDE 2% OPHTH SOLUTION 10ML BOTTLE. OU SCH ×3 (08:21→21:16)
[2021-04-15] MEDS: TIMOLOL 0.5% OPHTH SOLUTION 5ML BOTTLE. OU SCH ×3 (08:21→21:16)
[2021-04-15] MEDS: ELECTROLYTE (ICU) PROTOCOL. MC SCH (09:00)
--- NOTE | 2021-04-15 09:25 | RAD ---
EXAM: AP View of the chest DATE: 04/15/2021 3:31 AM INDICATION: Reason: intubatioN 109 / Spl. Instructions: / History: COMPARISON: 04/14/2021 FINDINGS: ET tube tip terminates 5 cm above the kat. Enteric tube extends below the diaphragm. The heart is not enlarged. Bibasilar airspace opacities have progressed compared 04/14/2021. Trace pleural effusions. No pneumothorax. IMPRESSION: Bibasilar airspace opacities have progressed compared 04/14/2021. Findings may represent consolidative process such as pneumonia or atelectasis. Edema could have this appearance. Electronically signed by: Matthew Loving MD (04/15/2021 9:23 AM) [id number]
[2021-04-15] MEDS: METOPROLOL IV PUSH 5 MG/5 ML VIAL. IVP PRN (09:34)
--- NOTE | 2021-04-15 12:47 | NUR ---
Spontaneous breathing trial started on patient. Patient alert, follows commands. Patient's respiratory rate maintains 8-12, tidal volumes are in the 500s, SPO2 remained 100%. Patient did become hypertensive despite Metoprolol dose. Received the order to re-sedate and try again tomorrow. Also received the order for an additional dose of Lasix this afternoon if patient's lungs remain coarse. Notified patient and family.
--- NOTE | 2021-04-15 14:50 | CARD ---
MR#: [id number] Date of Study: 04/15/2021 Ordering Physician: SHAUNNA MAYO, Referring Physician: SHAUNNA MAYO, Tech: Nettie Torstenmarco, [facility] APPROVED REPORT EXAM: Two-dimensional and M-mode echocardiogram with Doppler and color Doppler. Other Information Quality : AverageHR: 61bpm INDICATION Dyspnea Congestive Heart Failure RISK FACTORS Hypertension Diabetes 2D DIMENSIONS Left Atrium(2D)3.7 (1.6-4.0cm)IVSd1.6 (0.7-1.1cm) Aortic Root(2D)3.1 (2.0-3.7cm)LVDd4.4 (3.9-5.9cm) LVOT Diameter2.1 (1.8-2.4cm)PWd1.5 (0.7-1.1cm) LVDs3.2 (2.5-4.0cm)FS (%) 26.8 % SV46.3 ml Aortic Valve AoV Peak Teodoro.129.9cm/sAoV VTI29.8cm AO Peak GR.6.8mmHgLVOT VTI 21.41cm AO Mean GR.4mmHg Mitral Valve MV E Djfhytei55.4cm/sMV E Peak Gr.2mmHg MV DECEL [id number] A Ykrkwdty22.9cm/s MV E Mean Gr.1mmHgE/A Ratio2.0 TDI Lateral E' P. V6.18cm/sMedial E' P. V5.28cm/s E/Lateral E'12.2E/Medial E'14.3 Tricuspid Valve TR P. [id number]/sRAP [id number] TR Peak Gr.[id number] Pulmonary Vein S1 Jmwdyyca69.9cm/sS2 Njekxlwg69.49cm/s D2 Ubeuyycx65.5cm/s LEFT VENTRICLE The left ventricle is normal size. There is mild to moderate concentric left ventricular hypertrophy. The left ventricular systolic function is normal and the ejection fraction is within normal range. T he Ejection Fraction is 50-55%. There is normal LV segmental wall motion. Transmitral Doppler flow pa ttern is Grade II-pseudonormal filling dynamics. RIGHT VENTRICLE The right ventricle is normal size. The right ventricular systolic function is normal. ATRIA The left atrium size is normal. The right atrium size is normal. AORTIC VALVE The aortic valve is thickened but opens well. Doppler and Color Flow revealed no significant aortic r egurgitation. There is no significant aortic valvular stenosis. Calculated aortic valve area is 2.85 cm2 with maximum pressure gradient of 9 mmHg and mean pressure gradient of 5 mmHg. MITRAL VALVE The mitral valve is normal in structure and function. There is no evidence of mitral valve prolapse. There is no mitral valve stenosis. Doppler and Color-flow revealed trace mitral regurgitation. TRICUSPID VALVE The tricuspid valve is normal in structure and function. Doppler and Color Flow revealed trace tricus pid regurgitation with an estimated PAP of 45 mmHg. There is no tricuspid valve stenosis. PULMONIC VALVE The pulmonic valve is not well visualized. Doppler and Color Flow revealed trace pulmonic valvular re gurgitation. GREAT VESSELS The aortic root is normal in size. The IVC is dilated and collapses <50% with inspiration. PERICARDIAL EFFUSION There is a trace pericardial effusion with no hemodynamic significance. Critical Notification Critical Value: No <Conclusion> The left ventricle is normal size. The left ventricular systolic function is normal and the ejection fraction is within normal range. The Ejection Fraction is 50-55%. There is mild to moderate concentric left ventricular hypertrophy. Doppler and Color Flow revealed no significant aortic regurgitation. There is no significant aortic valvular stenosis. Doppler and Color-flow revealed trace mitral regurgitation. Doppler and Color Flow revealed trace tricuspid regurgitation with an estimated PAP of 45 mmHg. There is a trace pericardial effusion with no hemodynamic significance. Signed by : Shaunna Mayo MD Electronically Approved : 04/15/2021 14:49:41
--- NOTE | 2021-04-15 15:16 | PDOC ---
PROGRESS NOTES Date of Service DATE: 04/15/21 TIME: 15:14 Subjective Subjective Patient seen and examined Objective Objective Vital Signs Date Time Temp Pulse Resp B/P (MAP) Pulse Ox O2 Delivery O2 Flow Rate FiO2 04/15/21 15:00 57 20 135/57 100 Ventilator 04/15/21 12:00 98.0 98.0 Intake and Output 04/15/21 07:00 Intake Total 2477.2 ml Output Total 2080 ml Balance 397.2 ml Intake IV Total 858.2 ml Tube Feeding 1369 ml Other 250 ml Output Urine Total 2080 ml Physical Exam Abdomen: Normal bowel sounds Heart: Regular rate General: Other (Intubated) Lungs: Other (Decreased breath sounds) Assessment Assessment Assessment 1. Acute hypoxic respiratory failure. Patient remains on a ventilator. He is followed by the pulmonary service. Troponin normal at [facility]. BNP elevated at 05/15/2004. Echocardiogram today shows intact LV systolic function and no significant valvular disease. 2. Possible diastolic heart failure. Continuing present treatment. 3. Imaging as above as above shows a head CTA with no acute intracranial abnormalities. Comment Review of Relevant I have reviewed the following items carmen (where applicable) has been applied. Labs Laboratory Tests Test 04/14/21 05:00 04/14/21 07:30 04/14/21 12:28 04/14/21 17:19 White Blood Count 8.7 x10^3/uL (4.0-11.0) Red Blood Count 3.03 x10^6/uL (4.30-5.70) Hemoglobin 9.9 g/dL (13.0-17.5) Hematocrit 29.9 % (39.0-53.0) Mean Corpuscular Volume 99 fL (79-100) Mean Corpuscular Hemoglobin 33 pg (25-35) Mean Corpuscular Hemoglobin Concent 33 g/dL (31-37) Red Cell Distribution Width 13.3 % (11.5-14.5) Platelet Count 95 x10^3/uL (140-400) Neutrophils (%) (Auto) 75 % (31-73) Lymphocytes (%) (Auto) 17 % (24-48) Monocytes (%) (Auto) 8 % (0-9) Eosinophils (%) (Auto) 0 % (0-3) Basophils (%) (Auto) 0 % (0-3) Neutrophils # (Auto) 6.5 x10^3/uL (1.8-7.7) Lymphocytes # (Auto) 1.5 x10^3/uL (1.0-4.8) Monocytes # (Auto) 0.7 x10^3/uL (0.0-1.1) Eosinophils # (Auto) 0.0 x10^3/uL (0.0-0.7) Basophils # (Auto) 0.0 x10^3/uL (0.0-0.2) Platelet Estimate Decreased (ADEQUATE) Large Platelets Present Sodium Level 141 mmol/L (136-145) Potassium Level 4.3 mmol/L (3.5-5.1) Chloride Level 107 mmol/L (98-107) Carbon Dioxide Level 22 mmol/L (21-32) Anion Gap 12 (6-14) Blood Urea Nitrogen 48 mg/dL (8-26) Creatinine 1.7 mg/dL (0.7-1.3) Estimated GFR (Cockcroft-Gault) 47.9 BUN/Creatinine Ratio 28 (6-20) Glucose Level 169 mg/dL (70-99) Calcium Level 8.3 mg/dL (8.5-10.1) Magnesium Level 2.2 mg/dL (1.8-2.4) Total Bilirubin 0.3 mg/dL (0.2-1.0) Aspartate Amino Transf (AST/SGOT) 9 U/L (15-37) Alanine Aminotransferase (ALT/SGPT) 13 U/L (16-63) Alkaline Phosphatase 52 U/L (46-116) Total Protein 5.8 g/dL (6.4-8.2) Albumin 2.6 g/dL (3.4-5.0) Albumin/Globulin Ratio 0.8 (1.0-1.7) Triglycerides Level 113 mg/dL (0-150) Cholesterol Level 143 mg/dL (0-200) LDL Cholesterol, Calculated 77 mg/dL (0-100) VLDL Cholesterol, Calculated 23 mg/dL (0-40) Non-HDL Cholesterol Calculated 100 mg/dL (0-129) HDL Cholesterol 43 mg/dL (40-60) Cholesterol/HDL Ratio 3.3 O2 Saturation 98 % (92-99) Arterial Blood pH 7.47 (7.35-7.45) Arterial Blood pCO2 at Patient Temp 30 mmHg (35-46) Arterial Blood pO2 at Patient Temp 142 mmHg (65-108) Arterial Blood HCO3 21 mmol/L (21-28) Arterial Blood Base Excess -2 mmol/L (-3-3) FiO2 35 Glucose (Fingerstick) 189 mg/dL (70-99) 156 mg/dL (70-99) Test 04/15/21 00:24 04/15/21 04:30 04/15/21 05:41 04/15/21 07:25 Glucose (Fingerstick) 169 mg/dL (70-99) 145 mg/dL (70-99) White Blood Count 7.8 x10^3/uL (4.0-11.0) Red Blood Count 2.95 x10^6/uL (4.30-5.70) Hemoglobin 9.4 g/dL (13.0-17.5) Hematocrit 28.7 % (39.0-53.0) Mean Corpuscular Volume 98 fL (79-100) Mean Corpuscular Hemoglobin 32 pg (25-35) Mean Corpuscular Hemoglobin Concent 33 g/dL (31-37) Red Cell Distribution Width 13.3 % (11.5-14.5) Platelet Count 109 x10^3/uL (140-400) Sodium Level 142 mmol/L (136-145) Potassium Level 3.5 mmol/L (3.5-5.1) Chloride Level 106 mmol/L (98-107) Carbon Dioxide Level 24 mmol/L (21-32) Anion Gap 12 (6-14) Blood Urea Nitrogen 48 mg/dL (8-26) Creatinine 1.5 mg/dL (0.7-1.3) Estimated GFR (Cockcroft-Gault) 55.4 Glucose Level 147 mg/dL (70-99) Calcium Level 8.1 mg/dL (8.5-10.1) O2 Saturation 97 % (92-99) Arterial Blood pH 7.47 (7.35-7.45) Arterial Blood pCO2 at Patient Temp 32 mmHg (35-46) Arterial Blood pO2 at Patient Temp 103 mmHg (65-108) Arterial Blood HCO3 23 mmol/L (21-28) Arterial Blood Base Excess 0 mmol/L (-3-3) FiO2 35 Test 04/15/21 11:49 Glucose (Fingerstick) 160 mg/dL (70-99) Laboratory Tests Test 04/14/21 17:19 04/15/21 00:24 04/15/21 04:30 04/15/21 05:41 Glucose (Fingerstick) 156 mg/dL (70-99) 169 mg/dL (70-99) 145 mg/dL (70-99) White Blood Count 7.8 x10^3/uL (4.0-11.0) Red Blood Count 2.95 x10^6/uL (4.30-5.70) Hemoglobin 9.4 g/dL (13.0-17.5) Hematocrit 28.7 % (39.0-53.0) Mean Corpuscular Volume 98 fL (79-100) Mean Corpuscular Hemoglobin 32 pg (25-35) Mean Corpuscular Hemoglobin Concent 33 g/dL (31-37) Red Cell Distribution Width 13.3 % (11.5-14.5) Platelet Count 109 x10^3/uL (140-400) Sodium Level 142 mmol/L (136-145) Potassium Level 3.5 mmol/L (3.5-5.1) Chloride Level 106 mmol/L (98-107) Carbon Dioxide Level 24 mmol/L (21-32) Anion Gap 12 (6-14) Blood Urea Nitrogen 48 mg/dL (8-26) Creatinine 1.5 mg/dL (0.7-1.3) Estimated GFR (Cockcroft-Gault) 55.4 Glucose Level 147 mg/dL (70-99) Calcium Level 8.1 mg/dL (8.5-10.1) Test 04/15/21 07:25 04/15/21 11:49 O2 Saturation 97 % (92-99) Arterial Blood pH 7.47 (7.35-7.45) Arterial Blood pCO2 at Patient Temp 32 mmHg (35-46) Arterial Blood pO2 at Patient Temp 103 mmHg (65-108) Arterial Blood HCO3 23 mmol/L (21-28) Arterial Blood Base Excess 0 mmol/L (-3-3) FiO2 35 Glucose (Fingerstick) 160 mg/dL (70-99) Medications Current Medications Fentanyl Citrate 30 ml @ 2.5 mls/hr CONT PRN IV SEE PROTOCOL Last administered on 04/14/21at 12:31; Start 04/12/21 at 20:15 Propofol 100 ml @ 0 mls/hr CONT PRN IV PER PROTOCOL Last administered on 04/12/21at 20:32; Start 04/12/21 at 20:15; Stop 04/12/21 at 20:35; Status DC Vecuronium [place] (Norcuron Bolus) 6 mg PRN 1X PRN IV VENT INDUCTION; Start 04/12/21 at 20:15; Stop 04/13/21 at 20:14; Status DC Sodium Chloride 500 ml @ 500 mls/hr 1X PRN PRN IV SEE COMMENTS; Start 04/12/21 at 20:15 Atropine Sulfate (ATROPINE 0.5mg SYRINGE) 0.5 mg PRN Q5MIN PRN IV SEE COMMENTS; Start 04/12/21 at 20:15; Status Cancel Famotidine (Pepcid Vial) 20 mg BID IVP Last administered on 04/15/21at 08:20; Start 04/12/21 at 21:00 Propofol 100 ml @ 2.418 mls/ hr CONT PRN IV PER PROTOCOL Last administered on 04/15/21at 05:39; Start 04/12/21 at 20:35 Acetaminophen (Tylenol) 650 mg PRN Q6HRS PRN PO Headaches, Temp > 101.5'; Start 04/12/21 at 21:45 Lorazepam (Ativan Inj) 0.5 mg PRN Q6HRS PRN IVP ANXIETY / AGITATION; Start 04/12/21 at 21:45 Ondansetron HCl (Zofran) 4 mg PRN Q6HRS PRN IVP NAUSEA/VOMITING 1ST CHOICE; Start 04/12/21 at 21:45 Calcium Carbonate/ Glycine (Tums) 500 mg PRN Q3HRS PRN PO HEARTBURN / GAS; Start 04/12/21 at 21:45 Famotidine (Pepcid) 20 mg BID PO ; Start 04/13/21 at 09:00; Status UNV Info (Icu Electrolyte Protocol) 1 ea DAILY MC ; Start 04/13/21 at 09:00 Heparin Sodium (Porcine) (Heparin Sodium) 5,000 unit Q8HRS SQ Last administered on 04/15/21at 13:56; Start 04/12/21 at 22:00 Sodium Chloride (Normal Saline Flush) 3 ml QSHIFT PRN IV AFTER MEDS AND BLOOD DRAWS; Start 04/12/21 at 21:45 Piperacillin Sod/ Tazobactam Sod (Zosyn Per Pharmacy) 1 each PRN DAILY PRN MC SEE COMMENTS; Start 04/12/21 at 21:45 Methylprednisolone Sodium Succinate (SOLU-Medrol 125MG VIAL) 125 mg 1X ONCE IV Last administered on 04/12/21at 22:05; Start 04/12/21 at 22:00; Stop 04/12/21 at 22:01; Status DC Doxycycline Hyclate 100 mg/ Dextrose 100 ml @ 50 mls/hr Q12HR IV Last administered on 04/14/21at 20:34; Start 04/13/21 at 09:00; Stop 04/15/21 at 07:33; Status DC Piperacillin Sod/ Tazobactam Sod 3.375 gm/Sodium Chloride 50 ml @ 100 mls/hr Q6HRS IV Last administered on 04/15/21at 11:47; Start 04/13/21 at 00:00 Methylprednisolone Sodium Succinate (SOLU-Medrol 125MG VIAL) 125 mg BID IV ; St art 04/13/21 at 11:30; Stop 04/13/21 at 11:29; Status DC Furosemide (Lasix) 40 mg BID92 PEG ; Start 04/13/21 at 21:00; Stop 04/13/21 at 12:46; Status DC Furosemide (Lasix) 40 mg 1X ONCE IVP Last administered on 04/13/21at 12:09; Start 04/13/21 at 12:30; Stop 04/13/21 at 12:31; Status DC Furosemide (Lasix) 40 mg BID92 IVP ; Start 04/13/21 at 14:00; Stop 04/13/21 at 13:43; Status DC Furosemide (Lasix) 40 mg BID76 IVP Last administered on 04/15/21at 05:38; Start 04/13/21 at 18:00 Vecuronium [place] (Norcuron Bolus) 6 mg PRN Q6HRS PRN IV VENTILATOR COMPLIANCE; Start 04/14/21 at 05:15 Vecuronium [place] 50 mg/ Sodium Chloride 50 ml @ 3.767 mls/ hr CONT PRN IV PER PROTOCOL; Start 04/14/21 at 05:15 Metoprolol Tartrate (Lopressor Vial) 5 mg PRN Q6HRS PRN IVP HYPERTENSION Last administered on 04/15/21at 09:34; Start 04/14/21 at 09:00 Amlodipine Besylate (Norvasc) 2.5 mg DAILY PO Last administered on 04/15/21 08:20; Start 04/14/21 at 09:30 Non-Formulary Medication (Dorzolamide Hcl/ Timolol Maleat (Dorzolamide-Timolol Eye Drops)) 1 drop TID EACHEYE ; Start 04/14/21 at 14:00; Status UNV Metformin HCl (Glucophage) 1,000 mg BIDWMEALS PO Last administered on 04/14/21at 12:34; Start 04/14/21 at 11:30; Stop 04/14/21 at 16:45; Status DC Dorzolamide HCl (Trusopt) 1 drop TID OU Last administered on 04/15/21 13:56; Start 04/14/21 at 14:00 Timolol Maleate (Timoptic 0.5% Oph) 1 drop TID OU Last administered on 04/15/21 13:56; Start 04/14/21 at 14:00 Insulin Human Lispro (HumaLOG) 0-5 UNITS TIDWMEALS SQ Last administered on 04/14/21at 17:20; Start 04/14/21 at 17:00; Stop 04/14/21 at 23:48; Status DC Dextrose (Dextrose 50%-Water Syringe) 12.5 gm PRN Q15MIN PRN IV SEE COMMENTS; Start 04/14/21 at 16:45 Insulin Human Lispro (HumaLOG) 0-5 UNITS Q6HRS SQ Last administered on 04/15/21at 00:25; Start 04/15/21 at 00:00 Doxycycline Hyclate (Vibra-Tab) 100 mg BID PO Last administered on 04/15/21at 08:20; Start 04/15/21 at 09:00 Active Scripts Active Reported Metformin Hcl 1,000 Mg Tablet 1,000 Mg PO BIDWMEALS Dorzolamide-Timolol Eye Drops (Dorzolamide Hcl/Timolol Maleat) 10 Ml Drops 1 Drop EACHEYE TID Vitals/I & O Vital Sign - Last 24 Hours 04/14/21 04/14/21 04/14/21 04/14/21 15:25 16:00 16:00 17:00 Pulse 63 54 Resp 20 20 B/P (MAP) 169/83 139/69 Pulse Ox 95 100 100 O2 Delivery Ventilator Mechanical Ventilator Ventilator Ventilator 04/14/21 04/14/21 04/14/21 04/14/21 17:25 18:00 19:10 20:00 Temp 98.1 98.1 Pulse 54 55 53 Resp 20 20 20 B/P (MAP) 121/50 118/61 113/58 Pulse Ox 100 100 100 100 O2 Delivery Ventilator Ventilator Ventilator Ventilator 04/14/21 04/14/21 04/14/21 04/14/21 20:24 20:40 21:00 22:00 Pulse 55 54 Resp 20 20 B/P (MAP) 117/62 136/67 Pulse Ox 100 100 100 O2 Delivery Mechanical Ventilator Ventilator Ventilator Ventilator 04/14/21 04/14/21 04/15/21 04/15/21 23:09 23:27 00:16 00:19 Temp 98.6 98.6 Pulse 54 58 Resp 20 20 B/P (MAP) 138/66 149/70 Pulse Ox 100 100 100 O2 Delivery Ventilator Ventilator Mechanical Ventilator Ventilator 04/15/21 04/15/21 04/15/21 04/15/21 01:10 02:10 02:38 03:16 Pulse 57 59 57 Resp 20 20 20 B/P (MAP) 149/71 109/53 122/58 Pulse Ox 100 100 99 96 O2 Delivery Ventilator Ventilator Ventilator Ventilator 04/15/21 04/15/21 04/15/21 04/15/21 03:58 03:59 04:58 05:32 Temp 98.8 98.8 Pulse 55 54 Resp 20 20 B/P (MAP) 115/54 122/65 Pulse Ox 96 100 100 O2 Delivery Ventilator Mechanical Ventilator Ventilator Ventilator 04/15/21 04/15/21 04/15/21 04/15/21 06:18 07:00 07:26 08:00 Temp 98.4 98.4 Pulse 52 55 55 Resp 20 20 20 B/P (MAP) 128/71 129/60 118/59 Pulse Ox 100 100 100 100 O2 Delivery Ventilator Ventilator Ventilator Ventilator 04/15/21 04/15/21 04/15/21 04/15/21 08:00 08:20 09:00 09:34 Pulse 55 64 67 Resp 20 B/P (MAP) 118/59 206/103 206/103 Pulse Ox 100 O2 Delivery Mechanical Ventilator Ventilator 04/15/21 04/15/21 04/15/21 04/15/21 09:45 10:00 11:00 11:10 Pulse 61 74 Resp 10 12 B/P (MAP) 196/94 217/104 Pulse Ox 100 100 100 O2 Delivery Ventilator CPAP Trial CPAP Trial Ventilator 04/15/21 04/15/21 04/15/21 04/15/21 12:00 12:00 13:00 13:05 Temp 98.0 98.0 Pulse 61 59 Resp 20 20 B/P (MAP) 150/73 159/72 Pulse Ox 100 100 100 O2 Delivery Mechanical Ventilator Ventilator Ventilator Ventilator 04/15/21 04/15/21 14:00 15:00 Pulse 58 57 Resp 20 20 B/P (MAP) 153/62 135/57 Pulse Ox 100 100 O2 Delivery Ventilator Ventilator Intake and Output 04/14/21 04/14/21 04/15/21 15:00 23:00 07:00 Intake Total 250 ml 1047.2 ml 1180 ml Output Total 1140 ml 590 ml 350 ml Balance -890 ml 457.2 ml 830 ml Justifications for Admission Other Justification SHAUNNA MONTAGUE MD Apr 15, 2021 15:16
[2021-04-15] MEDS: hydrALAZINE 20 MG/ML VIAL. IVP PRN (15:48)
--- NOTE | 2021-04-15 16:16 | PDOC ---
[employer] PROGRESS NOTE Date of Service DOS: DATE: 04/15/21 TIME: 16:15 Chief Complaint Chief Complaint Acute hypoxic respiratory failure ACUTE systolic CHF, lasix acute pulmonary edema - poss pneumonia gram-negative versus gram-positive. Chronic anemia. Small pericardial effusion. Bilateral pleural effusion. History of Present Illness History of Present Illness 04/15, moustapha mccarty, his son is here from emergency leave he failed vent wean, CXR more cloudy today breathing better on current PS trial, good volumes, following commands very well BNP up CV consult follwing on vent, wean as able, Vitals/I&O Vitals/I&O: Vital Signs Date Time Temp Pulse Resp B/P (MAP) Pulse Ox O2 Delivery O2 Flow Rate FiO2 04/15/21 16:00 68 16 165/77 100 CPAP Trial 04/15/21 12:00 98.0 98.0 I & O 04/14/21 04/14/21 04/15/21 15:00 23:00 07:00 Intake Total 250 ml 1047.2 ml 1180 ml Output Total 1140 ml 590 ml 350 ml Balance -890 ml 457.2 ml 830 ml Physical Exam General: Other (Intubated) Heart: Regular rate Lungs: Crackles, Other Abdomen: Normal bowel sounds Extremities: No cyanosis Skin: No breakdown, No significant lesion Labs Labs: Laboratory Tests Test 04/14/21 17:19 04/15/21 00:24 04/15/21 04:30 04/15/21 05:41 Glucose (Fingerstick) 156 mg/dL (70-99) 169 mg/dL (70-99) 145 mg/dL (70-99) White Blood Count 7.8 x10^3/uL (4.0-11.0) Red Blood Count 2.95 x10^6/uL (4.30-5.70) Hemoglobin 9.4 g/dL (13.0-17.5) Hematocrit 28.7 % (39.0-53.0) Mean Corpuscular Volume 98 fL (79-100) Mean Corpuscular Hemoglobin 32 pg (25-35) Mean Corpuscular Hemoglobin Concent 33 g/dL (31-37) Red Cell Distribution Width 13.3 % (11.5-14.5) Platelet Count 109 x10^3/uL (140-400) Sodium Level 142 mmol/L (136-145) Potassium Level 3.5 mmol/L (3.5-5.1) Chloride Level 106 mmol/L (98-107) Carbon Dioxide Level 24 mmol/L (21-32) Anion Gap 12 (6-14) Blood Urea Nitrogen 48 mg/dL (8-26) Creatinine 1.5 mg/dL (0.7-1.3) Estimated GFR (Cockcroft-Gault) 55.4 Glucose Level 147 mg/dL (70-99) Calcium Level 8.1 mg/dL (8.5-10.1) Test 04/15/21 07:25 04/15/21 11:49 O2 Saturation 97 % (92-99) Arterial Blood pH 7.47 (7.35-7.45) Arterial Blood pCO2 at Patient Temp 32 mmHg (35-46) Arterial Blood pO2 at Patient Temp 103 mmHg (65-108) Arterial Blood HCO3 23 mmol/L (21-28) Arterial Blood Base Excess 0 mmol/L (-3-3) FiO2 35 Glucose (Fingerstick) 160 mg/dL (70-99) Comment Review of Relevant I have reviewed the following items carmen (where applicable) has been applied. Medications: Current Medications Medications (Trade) Dose Ordered Sig/Radhames Route PRN Reason Start Time Stop Time Status Last Admin Dose Admin Insulin Human Lispro (HumaLOG) 0-5 UNITS TIDWMEALS SQ 04/14/21 17:00 04/14/21 23:48 DC 04/14/21 17:20 Insulin Human Lispro (HumaLOG) 0-5 UNITS Q6HRS SQ 04/15/21 00:00 04/15/21 00:25 Doxycycline Hyclate (Vibra-Tab) 100 mg BID PO 04/15/21 09:00 04/15/21 08:20 Hydralazine HCl (Apresoline Inj) 10 mg PRN Q4HRS PRN IVP ELEVATED BP, SEE COMMENTS 04/15/21 15:45 04/15/21 15:48 Justifications for Admission Other Justification LEYDI RIZO MD Apr 15, 2021 16:16
[2021-04-16] VITALS (23 sets, daily range): BP systolic 125–195; BP diastolic 60–89
[2021-04-16] MEDS: PROPOFOL 100 ML IV PRN (03:39)
[2021-04-16] MEDS: INSULIN LISPRO 300 UNITS/3 ML VIAL. SQ SCH ×3 (05:53→17:49)
[2021-04-16] MEDS: PIPERACILLIN/TAZOBACTAM 3.375 GM in IV NORMAL SALINE 50ML 50 ML IV SCH ×3 (05:53→17:48)
[2021-04-16] MEDS: HEPARIN for SUB-Q USE 5,000 UNIT/ML VIAL. SQ SCH ×3 (05:54→21:10)
[2021-04-16 06:01] LABS: BASO % 0 % (0-3); EOS # 0.1 x10^3/uL (0.0-0.7); EOS % 1 % (0-3); HEMATOCRIT 29.3 % (39.0-53.0); HEMOGLOBIN 9.7 g/dL (13.0-17.5); LYMPH # 1.7 x10^3/uL (1.0-4.8); LYMPH % 26 % (24-48); MEAN CORPUSCULAR HEMOGLOBIN 32 pg (25-35); MEAN CORPUSCULAR HGB CONC 33 g/dL (31-37); MEAN CORPUSCULAR VOLUME 98 fL (79-100); MONO # 0.6 x10^3/uL (0.0-1.1); MONO % 9 % (0-9); NEUT # 4.2 x10^3/uL (1.8-7.7); NEUT % 64 % (31-73); PLATELET COUNT 110 x10^3/uL (140-400); RED BLOOD COUNT 2.99 x10^6/uL (4.30-5.70); WHITE BLOOD COUNT 6.6 x10^3/uL (4.0-11.0)
[2021-04-16 06:23] LABS: ALBUMIN 2.4 g/dL (3.4-5.0); ALBUMIN/GLOBULIN RATIO 0.7 (1.0-1.7); CALCIUM 8.1 mg/dL (8.5-10.1); CREATININE 1.2 mg/dL (0.7-1.3); GFR 71.6; TOTAL BILIRUBIN 0.3 mg/dL (0.2-1.0)
[2021-04-16 06:24] LABS: POTASSIUM 2.7 mmol/L (3.5-5.1)
[2021-04-16] MEDS: FUROSEMIDE 40 MG/4 ML VIAL. IVP SCH ×2 (06:43→17:52)
[2021-04-16] MEDS: POTASSIUM CHLORIDE 10MEQ 100 ML IV SCH ×8 (06:43→14:00)
[2021-04-16] MEDS: hydrALAZINE 20 MG/ML VIAL. IVP PRN ×3 (07:30→21:11)
[2021-04-16 07:33] LABS: BASE EXCESS ABG 1 mmol/L (-3-3); HCO3 ABG 24 mmol/L (21-28); PCO2 ABG 33 mmHg (35-46); PO2 ABG 136 mmHg (65-108); SAT O2 ABG 98 % (92-99)
[2021-04-16] MEDS: DORZOLAMIDE 2% OPHTH SOLUTION 10ML BOTTLE. OU SCH ×3 (07:41→21:18)
[2021-04-16] MEDS: FAMOTIDINE 20 MG/2 ML VIAL IVP SCH ×2 (07:41→21:09)
[2021-04-16] MEDS: TIMOLOL 0.5% OPHTH SOLUTION 5ML BOTTLE. OU SCH ×3 (07:42→21:19)
[2021-04-16] MEDS: DOXYCYCLINE HYCLATE 100 MG TABLET PO SCH ×2 (07:45→21:00)
--- NOTE | 2021-04-16 08:52 | PDOC ---
[employer] PROGRESS NOTE Date of Service DOS: DATE: 04/16/21 TIME: 08:50 Chief Complaint Chief Complaint Acute hypoxic respiratory failure ACUTE systolic CHF, lasix acute pulmonary edema - poss pneumonia gram-negative versus gram-positive. Chronic anemia. Small pericardial effusion. Bilateral pleural effusion. FEN - TF PPX - lovenox FULL CODE Dispo - inpatient, ICU History of Present Illness History of Present Illness 04/15: moustapha mccarty, his son is here from emergency leave. he failed vent wean, CXR more cloudy today. breathing better on current PS trial, good volumes, following commands very well 04/16: Echo with normal EF LVH, RVSP ~ 45. K2.7 urine output 2.2 L and then 2.7 L in the past 48 hours. Seen in ICU on ventilator minimal settings PEEP 5 FiO2 35%. Vitals/I&O Vitals/I&O: Vital Signs Date Time Temp Pulse Resp B/P (MAP) Pulse Ox O2 Delivery O2 Flow Rate FiO2 04/16/21 08:43 100 Ventilator 04/16/21 08:00 97.9 65 20 171/81 97.9 I & O 04/15/21 04/15/21 04/16/21 15:00 23:00 07:00 Intake Total 300 ml 934 ml 1104.75 ml Output Total 1550 ml 350 ml 825 ml Balance -1250 ml 584 ml 279.75 ml Physical Exam General: Other (Intubated) Heart: Regular rate Lungs: Crackles, Other Abdomen: Normal bowel sounds Extremities: No cyanosis Skin: No breakdown, No significant lesion Labs Labs: Laboratory Tests Test 04/15/21 11:49 04/15/21 16:47 04/15/21 23:54 04/16/21 05:40 Glucose (Fingerstick) 160 mg/dL (70-99) 158 mg/dL (70-99) 164 mg/dL (70-99) White Blood Count 6.6 x10^3/uL (4.0-11.0) Red Blood Count 2.99 x10^6/uL (4.30-5.70) Hemoglobin 9.7 g/dL (13.0-17.5) Hematocrit 29.3 % (39.0-53.0) Mean Corpuscular Volume 98 fL (79-100) Mean Corpuscular Hemoglobin 32 pg (25-35) Mean Corpuscular Hemoglobin Concent 33 g/dL (31-37) Red Cell Distribution Width 13.0 % (11.5-14.5) Platelet Count 110 x10^3/uL (140-400) Neutrophils (%) (Auto) 64 % (31-73) Lymphocytes (%) (Auto) 26 % (24-48) Monocytes (%) (Auto) 9 % (0-9) Eosinophils (%) (Auto) 1 % (0-3) Basophils (%) (Auto) 0 % (0-3) Neutrophils # (Auto) 4.2 x10^3/uL (1.8-7.7) Lymphocytes # (Auto) 1.7 x10^3/uL (1.0-4.8) Monocytes # (Auto) 0.6 x10^3/uL (0.0-1.1) Eosinophils # (Auto) 0.1 x10^3/uL (0.0-0.7) Basophils # (Auto) 0.0 x10^3/uL (0.0-0.2) Sodium Level 146 mmol/L (136-145) Potassium Level 2.7 mmol/L (3.5-5.1) Chloride Level 108 mmol/L (98-107) Carbon Dioxide Level 26 mmol/L (21-32) Anion Gap 12 (6-14) Blood Urea Nitrogen 45 mg/dL (8-26) Creatinine 1.2 mg/dL (0.7-1.3) Estimated GFR (Cockcroft-Gault) 71.6 BUN/Creatinine Ratio 38 (6-20) Glucose Level 138 mg/dL (70-99) Calcium Level 8.1 mg/dL (8.5-10.1) Total Bilirubin 0.3 mg/dL (0.2-1.0) Aspartate Amino Transf (AST/SGOT) 8 U/L (15-37) Alanine Aminotransferase (ALT/SGPT) 18 U/L (16-63) Alkaline Phosphatase 48 U/L (46-116) Total Protein 6.0 g/dL (6.4-8.2) Albumin 2.4 g/dL (3.4-5.0) Albumin/Globulin Ratio 0.7 (1.0-1.7) Test 04/16/21 05:52 04/16/21 07:26 Glucose (Fingerstick) 133 mg/dL (70-99) O2 Saturation 98 % (92-99) Arterial Blood pH 7.49 (7.35-7.45) Arterial Blood pCO2 at Patient Temp 33 mmHg (35-46) Arterial Blood pO2 at Patient Temp 136 mmHg (65-108) Arterial Blood HCO3 24 mmol/L (21-28) Arterial Blood Base Excess 1 mmol/L (-3-3) FiO2 35% vent Comment Review of Relevant I have reviewed the following items carmen (where applicable) has been applied. Medications: Current Medications Medications (Trade) Dose Ordered Sig/Radhames Route PRN Reason Start Time Stop Time Status Last Admin Dose Admin Doxycycline Hyclate (Vibra-Tab) 100 mg BID PO 04/15/21 09:00 04/16/21 07:45 Hydralazine HCl (Apresoline Inj) 10 mg PRN Q4HRS PRN IVP ELEVATED BP, 1ST CHOICE 04/15/21 15:45 04/15/21 15:48 Potassium Chloride/Water 100 ml @ 100 mls/hr Q1H IV 04/16/21 07:00 04/16/21 14:59 04/16/21 07:50 Justifications for Admission Other Justification ANDREW GARZA MD Apr 16, 2021 08:52
[2021-04-16 08:56] LABS: BASE EXCESS ABG 0 mmol/L (-3-3); HCO3 ABG 24 mmol/L (21-28); PCO2 ABG 33 mmHg (35-46); PO2 ABG 99 mmHg (65-108); SAT O2 ABG 97 % (92-99)
[2021-04-16] MEDS: ELECTROLYTE (ICU) PROTOCOL. MC SCH (09:00)
--- NOTE | 2021-04-16 10:41 | PDOC ---
PULMONARY PROGRESS NOTES DATE: 04/16/21 TIME: 10:39 Subjective Patient awake and following commands. Currently on CPAP trial. Vitals Vital Signs Date Time Temp Pulse Resp B/P (MAP) Pulse Ox O2 Delivery O2 Flow Rate FiO2 04/16/21 10:00 84 16 173/74 (107) 99 Nasal Cannula 3.0 04/16/21 08:00 97.9 97.9 Comments ros unable to obtain on vent sedated General: Alert, No acute distress HEENT: Other (nc at perrl nose clear orally intubated neck no lad no th yromegaly) Lungs: Clear Cardiovascular: S1, S2 Abdomen: Soft Extremities: Other (1+ edema) Skin: Warm Labs Laboratory Tests Test 04/14/21 12:28 04/14/21 17:19 04/15/21 00:24 04/15/21 04:30 Glucose (Fingerstick) 189 mg/dL (70-99) 156 mg/dL (70-99) 169 mg/dL (70-99) White Blood Count 7.8 x10^3/uL (4.0-11.0) Red Blood Count 2.95 x10^6/uL (4.30-5.70) Hemoglobin 9.4 g/dL (13.0-17.5) Hematocrit 28.7 % (39.0-53.0) Mean Corpuscular Volume 98 fL (79-100) Mean Corpuscular Hemoglobin 32 pg (25-35) Mean Corpuscular Hemoglobin Concent 33 g/dL (31-37) Red Cell Distribution Width 13.3 % (11.5-14.5) Platelet Count 109 x10^3/uL (140-400) Sodium Level 142 mmol/L (136-145) Potassium Level 3.5 mmol/L (3.5-5.1) Chloride Level 106 mmol/L (98-107) Carbon Dioxide Level 24 mmol/L (21-32) Anion Gap 12 (6-14) Blood Urea Nitrogen 48 mg/dL (8-26) Creatinine 1.5 mg/dL (0.7-1.3) Estimated GFR (Cockcroft-Gault) 55.4 Glucose Level 147 mg/dL (70-99) Calcium Level 8.1 mg/dL (8.5-10.1) Test 04/15/21 05:41 04/15/21 07:25 04/15/21 11:49 04/15/21 16:47 Glucose (Fingerstick) 145 mg/dL (70-99) 160 mg/dL (70-99) 158 mg/dL (70-99) O2 Saturation 97 % (92-99) Arterial Blood pH 7.47 (7.35-7.45) Arterial Blood pCO2 at Patient Temp 32 mmHg (35-46) Arterial Blood pO2 at Patient Temp 103 mmHg (65-108) Arterial Blood HCO3 23 mmol/L (21-28) Arterial Blood Base Excess 0 mmol/L (-3-3) FiO2 35 Test 04/15/21 23:54 04/16/21 05:40 04/16/21 05:52 04/16/21 07:26 Glucose (Fingerstick) 164 mg/dL (70-99) 133 mg/dL (70-99) White Blood Count 6.6 x10^3/uL (4.0-11.0) Red Blood Count 2.99 x10^6/uL (4.30-5.70) Hemoglobin 9.7 g/dL (13.0-17.5) Hematocrit 29.3 % (39.0-53.0) Mean Corpuscular Volume 98 fL (79-100) Mean Corpuscular Hemoglobin 32 pg (25-35) Mean Corpuscular Hemoglobin Concent 33 g/dL (31-37) Red Cell Distribution Width 13.0 % (11.5-14.5) Platelet Count 110 x10^3/uL (140-400) Neutrophils (%) (Auto) 64 % (31-73) Lymphocytes (%) (Auto) 26 % (24-48) Monocytes (%) (Auto) 9 % (0-9) Eosinophils (%) (Auto) 1 % (0-3) Basophils (%) (Auto) 0 % (0-3) Neutrophils # (Auto) 4.2 x10^3/uL (1.8-7.7) Lymphocytes # (Auto) 1.7 x10^3/uL (1.0-4.8) Monocytes # (Auto) 0.6 x10^3/uL (0.0-1.1) Eosinophils # (Auto) 0.1 x10^3/uL (0.0-0.7) Basophils # (Auto) 0.0 x10^3/uL (0.0-0.2) Sodium Level 146 mmol/L (136-145) Potassium Level 2.7 mmol/L (3.5-5.1) Chloride Level 108 mmol/L (98-107) Carbon Dioxide Level 26 mmol/L (21-32) Anion Gap 12 (6-14) Blood Urea Nitrogen 45 mg/dL (8-26) Creatinine 1.2 mg/dL (0.7-1.3) Estimated GFR (Cockcroft-Gault) 71.6 BUN/Creatinine Ratio 38 (6-20) Glucose Level 138 mg/dL (70-99) Calcium Level 8.1 mg/dL (8.5-10.1) Total Bilirubin 0.3 mg/dL (0.2-1.0) Aspartate Amino Transf (AST/SGOT) 8 U/L (15-37) Alanine Aminotransferase (ALT/SGPT) 18 U/L (16-63) Alkaline Phosphatase 48 U/L (46-116) Total Protein 6.0 g/dL (6.4-8.2) Albumin 2.4 g/dL (3.4-5.0) Albumin/Globulin Ratio 0.7 (1.0-1.7) O2 Saturation 98 % (92-99) Arterial Blood pH 7.49 (7.35-7.45) Arterial Blood pCO2 at Patient Temp 33 mmHg (35-46) Arterial Blood pO2 at Patient Temp 136 mmHg (65-108) Arterial Blood HCO3 24 mmol/L (21-28) Arterial Blood Base Excess 1 mmol/L (-3-3) FiO2 35% vent Test 04/16/21 08:49 O2 Saturation 97 % (92-99) Arterial Blood pH 7.47 (7.35-7.45) Arterial Blood pCO2 at Patient Temp 33 mmHg (35-46) Arterial Blood pO2 at Patient Temp 99 mmHg (65-108) Arterial Blood HCO3 24 mmol/L (21-28) Arterial Blood Base Excess 0 mmol/L (-3-3) FiO2 35% cpap trial Laboratory Tests Test 04/15/21 11:49 04/15/21 16:47 04/15/21 23:54 04/16/21 05:40 Glucose (Fingerstick) 160 mg/dL (70-99) 158 mg/dL (70-99) 164 mg/dL (70-99) White Blood Count 6.6 x10^3/uL (4.0-11.0) Red Blood Count 2.99 x10^6/uL (4.30-5.70) Hemoglobin 9.7 g/dL (13.0-17.5) Hematocrit 29.3 % (39.0-53.0) Mean Corpuscular Volume 98 fL (79-100) Mean Corpuscular Hemoglobin 32 pg (25-35) Mean Corpuscular Hemoglobin Concent 33 g/dL (31-37) Red Cell Distribution Width 13.0 % (11.5-14.5) Platelet Count 110 x10^3/uL (140-400) Neutrophils (%) (Auto) 64 % (31-73) Lymphocytes (%) (Auto) 26 % (24-48) Monocytes (%) (Auto) 9 % (0-9) Eosinophils (%) (Auto) 1 % (0-3) Basophils (%) (Auto) 0 % (0-3) Neutrophils # (Auto) 4.2 x10^3/uL (1.8-7.7) Lymphocytes # (Auto) 1.7 x10^3/uL (1.0-4.8) Monocytes # (Auto) 0.6 x10^3/uL (0.0-1.1) Eosinophils # (Auto) 0.1 x10^3/uL (0.0-0.7) Basophils # (Auto) 0.0 x10^3/uL (0.0-0.2) Sodium Level 146 mmol/L (136-145) Potassium Level 2.7 mmol/L (3.5-5.1) Chloride Level 108 mmol/L (98-107) Carbon Dioxide Level 26 mmol/L (21-32) Anion Gap 12 (6-14) Blood Urea Nitrogen 45 mg/dL (8-26) Creatinine 1.2 mg/dL (0.7-1.3) Estimated GFR (Cockcroft-Gault) 71.6 BUN/Creatinine Ratio 38 (6-20) Glucose Level 138 mg/dL (70-99) Calcium Level 8.1 mg/dL (8.5-10.1) Total Bilirubin 0.3 mg/dL (0.2-1.0) Aspartate Amino Transf (AST/SGOT) 8 U/L (15-37) Alanine Aminotransferase (ALT/SGPT) 18 U/L (16-63) Alkaline Phosphatase 48 U/L (46-116) Total Protein 6.0 g/dL (6.4-8.2) Albumin 2.4 g/dL (3.4-5.0) Albumin/Globulin Ratio 0.7 (1.0-1.7) Test 04/16/21 05:52 04/16/21 07:26 04/16/21 08:49 Glucose (Fingerstick) 133 mg/dL (70-99) O2 Saturation 98 % (92-99) 97 % (92-99) Arterial Blood pH 7.49 (7.35-7.45) 7.47 (7.35-7.45) Arterial Blood pCO2 at Patient Temp 33 mmHg (35-46) 33 mmHg (35-46) Arterial Blood pO2 at Patient Temp 136 mmHg (65-108) 99 mmHg (65-108) Arterial Blood HCO3 24 mmol/L (21-28) 24 mmol/L (21-28) Arterial Blood Base Excess 1 mmol/L (-3-3) 0 mmol/L (-3-3) FiO2 35% vent 35% cpap trial Medications Active Scripts Medications Dose Route/Sig Max Daily Dose Days Date Category Metformin Hcl 1,000 Mg Tablet 1,000 Mg PO BIDWMEALS 04/14/21 Reported Dorzolamide-Timolol Eye Drops (Dorzolamide Hcl/Timolol Maleat) 10 Ml Drops 1 Drop EACHEYE TID 04/14/21 Reported Comments Chest x-ray reviewed 04/16/2021. Improving left lung interstitial infiltrate cxr reviewed Patchy opacities right upper lung and bilateral lung bases likely atelectasis or consolidation, stable. Impression . IMPRESSION: 1. Acute hypoxemic respiratory failure. 2. Abnormal CT chest revealing no evidence of pulmonary embolism. There is evidence of bilateral infiltrates, interstitial in nature, possible pulmonary edema versus atypical pneumonia. 3. Possible gram-negative, gram-positive pneumonia. 4. SARS-CoV-2 negative, both rapid and nucleic amplification test, reportedly 5. Chronic anemia. 6. Small pericardial effusion. 7. Bilateral pleural effusion. 8. The patient unvaccinated for COVID-19. Plan . Updated 12/6 1. Currently awake and following some commands. Still weak but doing well on CPAP trial. We will proceed with extubation. 2. IV Lasix. keep I<O monitor k cr 3. follow Cardiology rec 4. Monitor labs. 5. DVT prophylaxis. 6. GI prophylaxis. 7. abx 8. Chest x-ray reviewed. Improving interstitial infiltrates discussed w rn rt 04/15 1. Continue vent support. setting reviewed decrease sedation sbt when alert 2. IV Lasix. keep I<O monitor k cr 3. follow Cardiology rec 4. Monitor labs. 5. DVT prophylaxis. 6. GI prophylaxis. 7. abx discussed w rn rt PLAN: 1. Continue vent support. setting reviewed decrease sedation sbt when alert 2. IV Lasix. 3. follow Cardiology rec 4. Monitor labs. 5. DVT prophylaxis. 6. GI prophylaxis. 7. abx discussed w rn rt DAISHA TERRELL MD Apr 16, 2021 10:41
--- NOTE | 2021-04-16 10:57 | PDOC ---
CARDIO Progress Notes Date and Time Date of Service 04/16/21 Time of Evaluation 1050 Subjective Subjective: No Chest Pain, No shortness of breath, No Palpitations Vitals Vitals Vital Signs Date Time Temp Pulse Resp B/P (MAP) Pulse Ox O2 Delivery O2 Flow Rate FiO2 04/16/21 10:00 84 16 173/74 (107) 99 Nasal Cannula 3.0 04/16/21 08:00 97.9 97.9 Weight Weight [ ] Input and Output Intake and Output Intake and Output 04/16/21 07:00 Intake Total 2338.75 ml Output Total 2725 ml Balance -386.25 ml Intake IV Total 395.75 ml Tube Feeding 1443 ml Other 500 ml Output Urine Total 2725 ml Laboratory Labs Laboratory Tests Test 04/15/21 11:49 04/15/21 16:47 04/15/21 23:54 04/16/21 05:40 Glucose (Fingerstick) 160 mg/dL (70-99) 158 mg/dL (70-99) 164 mg/dL (70-99) White Blood Count 6.6 x10^3/uL (4.0-11.0) Red Blood Count 2.99 x10^6/uL (4.30-5.70) Hemoglobin 9.7 g/dL (13.0-17.5) Hematocrit 29.3 % (39.0-53.0) Mean Corpuscular Volume 98 fL (79-100) Mean Corpuscular Hemoglobin 32 pg (25-35) Mean Corpuscular Hemoglobin Concent 33 g/dL (31-37) Red Cell Distribution Width 13.0 % (11.5-14.5) Platelet Count 110 x10^3/uL (140-400) Neutrophils (%) (Auto) 64 % (31-73) Lymphocytes (%) (Auto) 26 % (24-48) Monocytes (%) (Auto) 9 % (0-9) Eosinophils (%) (Auto) 1 % (0-3) Basophils (%) (Auto) 0 % (0-3) Neutrophils # (Auto) 4.2 x10^3/uL (1.8-7.7) Lymphocytes # (Auto) 1.7 x10^3/uL (1.0-4.8) Monocytes # (Auto) 0.6 x10^3/uL (0.0-1.1) Eosinophils # (Auto) 0.1 x10^3/uL (0.0-0.7) Basophils # (Auto) 0.0 x10^3/uL (0.0-0.2) Sodium Level 146 mmol/L (136-145) Potassium Level 2.7 mmol/L (3.5-5.1) Chloride Level 108 mmol/L (98-107) Carbon Dioxide Level 26 mmol/L (21-32) Anion Gap 12 (6-14) Blood Urea Nitrogen 45 mg/dL (8-26) Creatinine 1.2 mg/dL (0.7-1.3) Estimated GFR (Cockcroft-Gault) 71.6 BUN/Creatinine Ratio 38 (6-20) Glucose Level 138 mg/dL (70-99) Calcium Level 8.1 mg/dL (8.5-10.1) Total Bilirubin 0.3 mg/dL (0.2-1.0) Aspartate Amino Transf (AST/SGOT) 8 U/L (15-37) Alanine Aminotransferase (ALT/SGPT) 18 U/L (16-63) Alkaline Phosphatase 48 U/L (46-116) Total Protein 6.0 g/dL (6.4-8.2) Albumin 2.4 g/dL (3.4-5.0) Albumin/Globulin Ratio 0.7 (1.0-1.7) Test 04/16/21 05:52 04/16/21 07:26 04/16/21 08:49 Glucose (Fingerstick) 133 mg/dL (70-99) O2 Saturation 98 % (92-99) 97 % (92-99) Arterial Blood pH 7.49 (7.35-7.45) 7.47 (7.35-7.45) Arterial Blood pCO2 at Patient Temp 33 mmHg (35-46) 33 mmHg (35-46) Arterial Blood pO2 at Patient Temp 136 mmHg (65-108) 99 mmHg (65-108) Arterial Blood HCO3 24 mmol/L (21-28) 24 mmol/L (21-28) Arterial Blood Base Excess 1 mmol/L (-3-3) 0 mmol/L (-3-3) FiO2 35% vent 35% cpap trial Physical Exam HEENT: Neck Supple W Full Motion Chest: Symmetric LUNGS: Clear to Auscultation Heart: RRR Abdomen: Soft N/T Extremities: Other (1+ bilateral LE edema ) Neurology: alert, oriented, follow commands Assessment Assessment 1. Acute hypoxic respiratory failure with CHF and possible PNA; s/p extubation 2. Acute on chronic diastolic CHF; Echo with preserved LV systolic function 3 . Hypertension; labile 4. KENDRICK; better 5. Diabetes, II 6. Hypokalemia; being replaced Recommendations Ongoing diuresis with monitoring of renal function ST evaluation Hydralazine, labetalol IV PRN for BP control Start oral antiHTN therapy when able to take PO Consider outpatient ischemic evaluation Supportive care Justicifation of Admission Dx: Justifications for Admission: Justification of Admission Dx: Yes Comments: Acute respiratory failure Acute on chronic diastolic CHF KENDRICK GUY MARTINEZ APRN Apr 16, 2021 10:57
--- NOTE | 2021-04-16 11:36 | RAD ---
XR CHEST 1V History: Reason: CHF, on vent / Spl. Instructions: / History: Comparison: April 15, 2021 Findings: Multifocal opacities most prominent within the right upper lung and left lower lung. Overall decrease d patchy bibasilar opacities. Small left pleural effusion, unchanged. Unchanged heart size. Stable en dotracheal tube and enteric tube. No pneumothorax. Probable nipple shadows projecting over the lung b ases. Impression: 1. Multifocal ill-defined opacities bilaterally most prominent within the right upper lung bases. Ov erall decreased opacities within the lung bases compared to prior. Electronically signed by: Hieu Vargas DO (04/16/2021 11:34 AM) [id number]
[2021-04-16] MEDS ORDERED: IV RINGERS,LACTATED 1000ML 500 ML IV ONE (17:15)
[2021-04-16] MEDS: LABETALOL 20 MG/4 ML DISP.SYRIN. IVP PRN (17:47)
[2021-04-17] VITALS (23 sets, daily range): BP systolic 150–195; BP diastolic 57–99
[2021-04-17] MEDS: METOPROLOL IV PUSH 5 MG/5 ML VIAL. IVP PRN (00:23)
[2021-04-17] MEDS: PIPERACILLIN/TAZOBACTAM 3.375 GM in IV NORMAL SALINE 50ML 50 ML IV SCH ×4 (00:24→18:07)
[2021-04-17] MEDS: hydrALAZINE 20 MG/ML VIAL. IVP PRN ×3 (03:04→18:12)
[2021-04-17] MEDS: HEPARIN for SUB-Q USE 5,000 UNIT/ML VIAL. SQ SCH ×3 (05:38→22:00)
[2021-04-17] MEDS: INSULIN LISPRO 300 UNITS/3 ML VIAL. SQ SCH ×4 (06:00→18:13)
[2021-04-17 06:35] LABS: CALCIUM 8.7 mg/dL (8.5-10.1); GFR 88.4; POTASSIUM 3.1 mmol/L (3.5-5.1)
--- NOTE | 2021-04-17 07:28 | PDOC ---
[facility] PROGRESS NOTE Date of Service DOS: DATE: 04/17/21 TIME: 07:27 Chief Complaint Chief Complaint Acute hypoxic respiratory failure ACUTE systolic CHF, lasix acute pulmonary edema - poss pneumonia gram-negative versus gram-positive. Chronic anemia. Small pericardial effusion. Bilateral pleural effusion. FEN -cardiac diet PPX - lovenox FULL CODE Dispo - inpatient, ICU History of Present Illness History of Present Illness 04/15: cont lul, his son is here from emergency leave. he failed vent wean, CXR more cloudy today. breathing better on current PS trial, good volumes, following commands very well 04/16: Echo with normal EF LVH, RVSP ~ 45. K2.7 urine output 2.2 L and then 2.7 L in the past 48 hours. Seen in ICU on ventilator minimal settings PEEP 5 FiO2 35%. 04/17: Seen bedside in ICU. extubated without event. Potassium 3.1 despite replacement. Able to pass bedside swallow. Diuresing well with IV furosemide. Vitals/I&O Vitals/I&O: Vital Signs Date Time Temp Pulse Resp B/P (MAP) Pulse Ox O2 Delivery O2 Flow Rate FiO2 04/17/21 07:00 79 18 173/73 (106) 96 Room Air 04/17/21 04:00 2.0 04/17/21 04:00 99.0 99.0 I & O 04/16/21 04/16/21 04/17/21 15:00 23:00 07:00 Intake Total 125 ml 117 ml Output Total 1550 ml 1475 ml 625 ml Balance -1425 ml -1358 ml -625 ml Physical Exam General: Alert, Oriented X3, Cooperative Heart: Regular rate Lungs: Crackles Abdomen: Normal bowel sounds Extremities: No cyanosis Skin: No breakdown, No significant lesion Labs Labs: Laboratory Tests Test 04/16/21 08:49 04/17/21 00:33 04/17/21 06:05 O2 Saturation 97 % (92-99) Arterial Blood pH 7.47 (7.35-7.45) Arterial Blood pCO2 at Patient Temp 33 mmHg (35-46) Arterial Blood pO2 at Patient Temp 99 mmHg (65-108) Arterial Blood HCO3 24 mmol/L (21-28) Arterial Blood Base Excess 0 mmol/L (-3-3) FiO2 35% cpap trial Glucose (Fingerstick) 145 mg/dL (70-99) Sodium Level 146 mmol/L (136-145) Potassium Level 3.1 mmol/L (3.5-5.1) Chloride Level 109 mmol/L (98-107) Carbon Dioxide Level 27 mmol/L (21-32) Anion Gap 10 (6-14) Blood Urea Nitrogen 35 mg/dL (8-26) Creatinine 1.0 mg/dL (0.7-1.3) Estimated GFR (Cockcroft-Gault) 88.4 Glucose Level 150 mg/dL (70-99) Calcium Level 8.7 mg/dL (8.5-10.1) Comment Review of Relevant I have reviewed the following items carmen (where applicable) has been applied. Medications: Current Medications Medications (Trade) Dose Ordered Sig/Radhames Route PRN Reason Start Time Stop Time Status Last Admin Dose Admin Labetalol HCl (Normodyne Iv Push) 20 mg PRN Q2HR PRN IVP HYPERTENSION 04/16/21 14:15 04/16/21 17:47 Ringer's Solution 500 ml @ 50 mls/hr 1X ONCE IV 04/16/21 17:15 04/17/21 03:14 DC 04/16/21 17:48 Justifications for Admission Other Justification ANDREW GARZA MD Apr 17, 2021 07:28
[2021-04-17] MEDS: FUROSEMIDE 40 MG/4 ML VIAL. IVP SCH (07:36)
[2021-04-17] MEDS: LABETALOL 20 MG/4 ML DISP.SYRIN. IVP PRN (07:37)
[2021-04-17] MEDS: DORZOLAMIDE 2% OPHTH SOLUTION 10ML BOTTLE. OU SCH ×2 (07:37→12:31)
[2021-04-17] MEDS: ELECTROLYTE (ICU) PROTOCOL. MC SCH (07:37)
[2021-04-17] MEDS: FAMOTIDINE 20 MG/2 ML VIAL IVP SCH ×2 (07:37→21:00)
[2021-04-17] MEDS: TIMOLOL 0.5% OPHTH SOLUTION 5ML BOTTLE. OU SCH ×2 (07:37→12:31)
[2021-04-17] MEDS: DOXYCYCLINE HYCLATE 100 MG TABLET PO SCH ×2 (07:58→21:00)
[2021-04-17] MEDS: POTASSIUM CHLORIDE 10MEQ 100 ML IV SCH ×6 (08:00→13:00)
--- NOTE | 2021-04-17 10:30 | PDOC ---
PULMONARY PROGRESS NOTES DATE: 04/17/21 TIME: 10:27 Subjective Patient extubated 04/16/2021 Currently on room air. Vitals Vital Signs Date Time Temp Pulse Resp B/P (MAP) Pulse Ox O2 Delivery O2 Flow Rate FiO2 04/17/21 10:00 67 16 183/87 (119) 99 Room Air 04/17/21 08:00 98.7 98.7 04/17/21 04:00 2.0 General: Alert, No acute distress HEENT: Other (nc at perrl nose clear orally intubated neck no lad no thyromegaly) Lungs: Clear Cardiovascular: S1, S2 Abdomen: Soft Extremities: Other (1+ edema) Skin: Warm Labs Laboratory Tests Test 04/15/21 11:49 04/15/21 16:47 04/15/21 23:54 04/16/21 05:40 Glucose (Fingerstick) 160 mg/dL (70-99) 158 mg/dL (70-99) 164 mg/dL (70-99) White Blood Count 6.6 x10^3/uL (4.0-11.0) Red Blood Count 2.99 x10^6/uL (4.30-5.70) Hemoglobin 9.7 g/dL (13.0-17.5) Hematocrit 29.3 % (39.0-53.0) Mean Corpuscular Volume 98 fL (79-100) Mean Corpuscular Hemoglobin 32 pg (25-35) Mean Corpuscular Hemoglobin Concent 33 g/dL (31-37) Red Cell Distribution Width 13.0 % (11.5-14.5) Platelet Count 110 x10^3/uL (140-400) Neutrophils (%) (Auto) 64 % (31-73) Lymphocytes (%) (Auto) 26 % (24-48) Monocytes (%) (Auto) 9 % (0-9) Eosinophils (%) (Auto) 1 % (0-3) Basophils (%) (Auto) 0 % (0-3) Neutrophils # (Auto) 4.2 x10^3/uL (1.8-7.7) Lymphocytes # (Auto) 1.7 x10^3/uL (1.0-4.8) Monocytes # (Auto) 0.6 x10^3/uL (0.0-1.1) Eosinophils # (Auto) 0.1 x10^3/uL (0.0-0.7) Basophils # (Auto) 0.0 x10^3/uL (0.0-0.2) Sodium Level 146 mmol/L (136-145) Potassium Level 2.7 mmol/L (3.5-5.1) Chloride Level 108 mmol/L (98-107) Carbon Dioxide Level 26 mmol/L (21-32) Anion Gap 12 (6-14) Blood Urea Nitrogen 45 mg/dL (8-26) Creatinine 1.2 mg/dL (0.7-1.3) Estimated GFR (Cockcroft-Gault) 71.6 BUN/Creatinine Ratio 38 (6-20) Glucose Level 138 mg/dL (70-99) Calcium Level 8.1 mg/dL (8.5-10.1) Magnesium Level 2.3 mg/dL (1.8-2.4) Total Bilirubin 0.3 mg/dL (0.2-1.0) Aspartate Amino Transf (AST/SGOT) 8 U/L (15-37) Alanine Aminotransferase (ALT/SGPT) 18 U/L (16-63) Alkaline Phosphatase 48 U/L (46-116) Total Protein 6.0 g/dL (6.4-8.2) Albumin 2.4 g/dL (3.4-5.0) Albumin/Globulin Ratio 0.7 (1.0-1.7) Test 04/16/21 05:52 04/16/21 07:26 04/16/21 08:49 04/17/21 00:33 Glucose (Fingerstick) 133 mg/dL (70-99) 145 mg/dL (70-99) O2 Saturation 98 % (92-99) 97 % (92-99) Arterial Blood pH 7.49 (7.35-7.45) 7.47 (7.35-7.45) Arterial Blood pCO2 at Patient Temp 33 mmHg (35-46) 33 mmHg (35-46) Arterial Blood pO2 at Patient Temp 136 mmHg (65-108) 99 mmHg (65-108) Arterial Blood HCO3 24 mmol/L (21-28) 24 mmol/L (21-28) Arterial Blood Base Excess 1 mmol/L (-3-3) 0 mmol/L (-3-3) FiO2 35% vent 35% cpap trial Test 04/17/21 06:05 Sodium Level 146 mmol/L (136-145) Potassium Level 3.1 mmol/L (3.5-5.1) Chloride Level 109 mmol/L (98-107) Carbon Dioxide Level 27 mmol/L (21-32) Anion Gap 10 (6-14) Blood Urea Nitrogen 35 mg/dL (8-26) Creatinine 1.0 mg/dL (0.7-1.3) Estimated GFR (Cockcroft-Gault) 88.4 Glucose Level 150 mg/dL (70-99) Calcium Level 8.7 mg/dL (8.5-10.1) Magnesium Level 2.3 mg/dL (1.8-2.4) Laboratory Tests Test 04/17/21 00:33 04/17/21 06:05 Glucose (Fingerstick) 145 mg/dL (70-99) Sodium Level 146 mmol/L (136-145) Potassium Level 3.1 mmol/L (3.5-5.1) Chloride Level 109 mmol/L (98-107) Carbon Dioxide Level 27 mmol/L (21-32) Anion Gap 10 (6-14) Blood Urea Nitrogen 35 mg/dL (8-26) Creatinine 1.0 mg/dL (0.7-1.3) Estimated GFR (Cockcroft-Gault) 88.4 Glucose Level 150 mg/dL (70-99) Calcium Level 8.7 mg/dL (8.5-10.1) Magnesium Level 2.3 mg/dL (1.8-2.4) Medications Active Scripts Medications Dose Route/Sig Max Daily Dose Days Date Category Metformin Hcl 1,000 Mg Tablet 1,000 Mg PO BIDWMEALS 04/14/21 Reported Dorzolamide-Timolol Eye Drops (Dorzolamide Hcl/Timolol Maleat) 10 Ml Drops 1 Drop EACHEYE TID 04/14/21 Reported Comments Chest x-ray reviewed 04/16/2021. Improving left lung interstitial infiltrate cxr reviewed Patchy opacities right upper lung and bilateral lung bases likely atelectasis or consolidation, stable. Impression . IMPRESSION: 1. Acute hypoxemic respiratory failure. Extubated 04/16/2021. Currently on room air. 2. Abnormal CT chest revealing no evidence of pulmonary embolism. There is evidence of bilateral infiltrates, interstitial in nature, possible pulmonary edema versus atypical pneumonia. 3. Possible gram-negative, gram-positive pneumonia. 4. SARS-CoV-2 negative, both rapid and nucleic amplification test, reportedly 5. Chronic anemia. 6. Small pericardial effusion. 7. Bilateral pleural effusion. 8. The patient unvaccinated for COVID-19. Plan . Updated 04/17 1. Currently awake and following some commands. On room air. Extubated 04/16/2021 2. IV Lasix. keep I<O monitor k cr 3. follow Cardiology rec 4. Monitor labs. 5. DVT prophylaxis. 6. GI prophylaxis. 7. Can change to abx 8. Chest x-ray reviewed. Improving interstitial infiltrates discussed w rn rt. Transfer to the floor when bed available. Updated 04/16 1. Currently awake and following some commands. Still weak but doing well on CPAP trial. We will proceed with extubation. 2. IV Lasix. keep I<O monitor k cr 3. follow Cardiology rec 4. Monitor labs. 5. DVT prophylaxis. 6. GI prophylaxis. 7. abx 8. Chest x-ray reviewed. Improving interstitial infiltrates discussed w rn rt 04/15 1. Continue vent support. setting reviewed decrease sedation sbt when alert 2. IV Lasix. keep I<O monitor k cr 3. follow Cardiology rec 4. Monitor labs. 5. DVT prophylaxis. 6. GI prophylaxis. 7. abx discussed w rn rt PLAN: 1. Continue vent support. setting reviewed decrease sedation sbt when alert 2. IV Lasix. 3. follow Cardiology rec 4. Monitor labs. 5. DVT prophylaxis. 6. GI prophylaxis. 7. abx discussed w rn rt DAISHA TERRELL MD Apr 17, 2021 10:30
--- NOTE | 2021-04-17 11:59 | PDOC ---
CARDIO Progress Notes Date and Time Date of Service 04/17/2021 Time of Evaluation 1145 Subjective Subjective: No Chest Pain, No shortness of breath, No Palpitations Vitals Vitals Vital Signs Date Time Temp Pulse Resp B/P (MAP) Pulse Ox O2 Delivery O2 Flow Rate FiO2 04/17/21 10:35 72 183/103 04/17/21 10:00 16 99 Room Air 04/17/21 08:00 98.7 98.7 04/17/21 04:00 2.0 Weight Weight [ ] Input and Output Intake and Output Intake and Output 04/17/21 07:00 Intake Total 242 ml Output Total 3650 ml Balance -3408 ml IV Total 117 ml Tube Feeding 125 ml Output Urine Total 3650 ml # Bowel Movements 1 Laboratory Labs Laboratory Tests Test 04/17/21 00:33 04/17/21 06:05 Glucose (Fingerstick) 145 mg/dL (70-99) Sodium Level 146 mmol/L (136-145) Potassium Level 3.1 mmol/L (3.5-5.1) Chloride Level 109 mmol/L (98-107) Carbon Dioxide Level 27 mmol/L (21-32) Anion Gap 10 (6-14) Blood Urea Nitrogen 35 mg/dL (8-26) Creatinine 1.0 mg/dL (0.7-1.3) Estimated GFR (Cockcroft-Gault) 88.4 Glucose Level 150 mg/dL (70-99) Calcium Level 8.7 mg/dL (8.5-10.1) Magnesium Level 2.3 mg/dL (1.8-2.4) Physical Exam HEENT: Neck Supple W Full Motion Chest: Symmetric LUNGS: Clear to Auscultation Heart: RRR (SR) Abdomen: Soft N/T Extremities: Other (1+ bilateral LE edema ) Neurology: alert, follow commands, other (periods of halllucination) Assessment Assessment 1. Acute hypoxic respiratory failure with CHF and possible PNA; s/p extubation 2. Acute on chronic diastolic CHF; Echo with preserved LV systolic function 3 . Hypertension; labile 4. KENDRICK; better 5. Diabetes, II 6. Hypokalemia; being replaced Recommendations Remains NPO. Start on NTG paste and vasotec IV. Continue lasix therapy lower dose ST evaluation Start oral antiHTN therapy when able to take PO Consider outpatient ischemic evaluation Supportive care Justicifation of Admission Dx: Justifications for Admission: Justification of Admission Dx: Yes SHELTON BORR[employer] Apr 17, 2021 11:59
[2021-04-17] MEDS: ENALAPRILAT 1.25 MG/ML VIAL. IVP SCH ×2 (12:30→18:11)
[2021-04-17] MEDS: NITROGLYCERIN OINT 1 GM PACKET. TP SCH ×2 (12:31→18:12)
--- NOTE | 2021-04-17 13:27 | NUR ---
SS following up with discharge planning. SS reviewed pt chart and discussed with pt RN. Pt is currently on room air. COVID19 negative. Pt on IV Zosyn and IV Lasix. PT/OT/ST ordered. SS will continue to follow for discharge planning.
[2021-04-18] VITALS (7 sets, daily range): BP systolic 147–215; BP diastolic 75–105
[2021-04-18] MEDS: PIPERACILLIN/TAZOBACTAM 3.375 GM in IV NORMAL SALINE 50ML 50 ML IV SCH ×2 (00:55→06:37)
[2021-04-18] MEDS: NITROGLYCERIN OINT 1 GM PACKET. TP SCH ×5 (00:57→23:38)
[2021-04-18] MEDS: DORZOLAMIDE 2% OPHTH SOLUTION 10ML BOTTLE. OU SCH ×4 (00:58→21:42)
[2021-04-18] MEDS: TIMOLOL 0.5% OPHTH SOLUTION 5ML BOTTLE. OU SCH ×4 (00:58→21:42)
[2021-04-18] MEDS: ENALAPRILAT 1.25 MG/ML VIAL. IVP SCH ×5 (03:15→21:42)
[2021-04-18] MEDS: HEPARIN for SUB-Q USE 5,000 UNIT/ML VIAL. SQ SCH ×3 (06:46→21:45)
--- NOTE | 2021-04-18 07:57 | PDOC ---
SHELTON BORRERO HEEL BUILDER 04/18/21 0757: CARDIO Progress Notes Date and Time Date of Service 04/18/2021 Time of Evaluation 1120 Subjective Subjective: No Chest Pain, No shortness of breath, No Palpitations Vitals Vitals Vital Signs Date Time Temp Pulse Resp B/P (MAP) Pulse Ox O2 Delivery O2 Flow Rate FiO2 04/18/21 06:39 77 201/86 04/18/21 03:21 99.1 16 95 Room Air 99.1 Weight Weight [ ] Input and Output Intake and Output Intake and Output 04/18/21 07:00 Intake Total 2070 ml Output Total 2051 ml Balance 19 ml Intake Oral 1470 ml Blood Product IV Normal Saline Flush 600 ml Output Urine Total 2050 ml Stool Total 1 ml # Voids 1 Laboratory Labs Laboratory Tests Test 04/17/21 18:09 Glucose (Fingerstick) 232 mg/dL (70-99) Physical Exam HEENT: Neck Supple W Full Motion Chest: Symmetric LUNGS: Clear to Auscultation Heart: RRR (SR) Abdomen: Soft N/T Extremities: Other (1+ bilateral LE edema ) Neurology: alert, oriented, follow commands Assessment Assessment 1. Acute hypoxic respiratory failure with CHF and possible PNA; s/p extubation 2. Acute on chronic diastolic CHF; Echo with preserved LV systolic function compensated 3 . Hypertension; labile 4. KENDRICK; better 5. Diabetes, II 6. Hypokalemia; being replaced Recommendations Remains NPO. NTG paste and vasotec IV. Continue lasix therapy lower dose ST evaluation Start oral antiHTN therapy when able to take PO Consider outpatient ischemic evaluation Supportive care Justicifation of Admission Dx: Justifications for Admission: Justification of Admission Dx: Yes SHAUNNA MONTAGUE MD 04/18/21 1706: CARDIO Progress Notes Assessment Assessment Patient seen and examined I agree with our nurse practitioners assessment and plan. Acute hypoxic respiratory failure with CHF and possible PNA; s/p extubation. Continues to improve. Acute on chronic diastolic CHF; Echo with preserved LV systolic function compensated. Outpatient ischemia evaluation and follow-up. Hypertension; labile KENDRICK; better. Monitoring lab. Diabetes, II Hypokalemia; being replaced SHELTON BORRERO APRN Apr 18, 2021 07:57 SHAUNNA MONTAGUE MD Apr 18, 2021 17:06
[2021-04-18 08:54] LABS: CALCIUM 8.9 mg/dL (8.5-10.1); CREATININE 0.9 mg/dL (0.7-1.3); GFR 99.8; POTASSIUM 3.2 mmol/L (3.5-5.1)
--- NOTE | 2021-04-18 08:54 | PDOC ---
[facility] PROGRESS NOTE Date of Service DOS: DATE: 04/18/21 TIME: 08:50 Chief Complaint Chief Complaint Acute hypoxic respiratory failure ACUTE systolic CHF, lasix acute pulmonary edema - poss pneumonia gram-negative versus gram-positive. Chronic anemia. Small pericardial effusion. Bilateral pleural effusion. FEN -cardiac diet PPX - lovenox FULL CODE Dispo - inpatient, ICU History of Present Illness History of Present Illness 04/15: cont lul, his son is here from emergency leave. he failed vent wean, CXR more cloudy today. breathing better on current PS trial, good volumes, following commands very well 04/16: Echo with normal EF LVH, RVSP ~ 45. K2.7 urine output 2.2 L and then 2.7 L in the past 48 hours. Seen in ICU on ventilator minimal settings PEEP 5 FiO2 35%. 04/17: Seen bedside in ICU. extubated without event. Potassium 3.1 despite replacement. Able to pass bedside swallow. Diuresing well with IV furosemide. 04/18: Seen bedside. Afebrile. Eating breakfast. BP systolic in the 200s despite treatment. Patient notes he is not holding blood pressure meds outpatient but has not started them. No chest pain or shortness of breath Vitals/I&O Vitals/I&O: Vital Signs Date Time Temp Pulse Resp B/P (MAP) Pulse Ox O2 Delivery O2 Flow Rate FiO2 04/18/21 06:39 77 201/86 04/18/21 03:21 99.1 16 95 Room Air 99.1 I & O 04/17/21 04/17/21 04/18/21 15:00 23:00 07:00 Intake Total 880 ml 590 ml 600 ml Output Total 1250 ml 351 ml 450 ml Balance -370 ml 239 ml 150 ml Physical Exam General: Alert, Oriented X3, Cooperative Heart: Regular rate Lungs: Crackles Abdomen: Normal bowel sounds Extremities: No cyanosis Skin: No breakdown, No significant lesion Labs Labs: Laboratory Tests Test 04/17/21 18:09 Glucose (Fingerstick) 232 mg/dL (70-99) Comment Review of Relevant I have reviewed the following items carmen (where applicable) has been applied. Medications: Current Medications Medications (Trade) Dose Ordered Sig/Radhames Route PRN Reason Start Time Stop Time Status Last Admin Dose Admin Enalaprilat (Vasotec Inj) 1.25 mg Q6HRS IVP 04/17/21 12:00 04/18/21 06:54 DC 04/18/21 03:15 Nitroglycerin (Nitro-Bid Oint) 1 inch Q6HRS TP 04/17/21 12:00 04/18/21 06:39 Justifications for Admission Other Justification ANDREW GARZA MD Apr 18, 2021 08:54
[2021-04-18] MEDS: FAMOTIDINE 20 MG/2 ML VIAL IVP SCH ×2 (08:56→21:42)
[2021-04-18] MEDS: DOXYCYCLINE HYCLATE 100 MG TABLET PO SCH ×2 (08:57→21:41)
[2021-04-18] MEDS: INSULIN LISPRO 300 UNITS/3 ML VIAL. SQ SCH ×3 (08:58→12:29)
[2021-04-18] MEDS: ELECTROLYTE (ICU) PROTOCOL. MC SCH (09:00)
[2021-04-18] MEDS ORDERED: POTASSIUM CHLORIDE 20 MEQ TABLET.ER. PO ONE (09:45)
[2021-04-18] MEDS ORDERED: POTASSIUM CHLORIDE 10MEQ 100 ML IV ONE ×2 (10:00→11:30)
--- NOTE | 2021-04-18 10:28 | PDOC ---
PULMONARY PROGRESS NOTES DATE: 04/18/21 TIME: 10:27 Subjective Patient extubated 04/16/2021 Currently on room air. Vitals Vital Signs Date Time Temp Pulse Resp B/P (MAP) Pulse Ox O2 Delivery O2 Flow Rate FiO2 04/18/21 08:57 82 188/96 04/18/21 08:00 99.1 20 96 Room Air 99.1 General: Alert, No acute distress HEENT: Other (nc at perrl nose clear orally intubated neck no lad no thyromegaly) Lungs: Crackles Cardiovascular: S1, S2 Abdomen: Soft Extremities: Other (1+ edema) Skin: Warm Labs Laboratory Tests Test 04/17/21 00:33 04/17/21 06:05 04/17/21 18:09 04/18/21 07:35 Glucose (Fingerstick) 145 mg/dL (70-99) 232 mg/dL (70-99) Sodium Level 146 mmol/L (136-145) 145 mmol/L (136-145) Potassium Level 3.1 mmol/L (3.5-5.1) 3.2 mmol/L (3.5-5.1) Chloride Level 109 mmol/L (98-107) 105 mmol/L (98-107) Carbon Dioxide Level 27 mmol/L (21-32) 25 mmol/L (21-32) Anion Gap 10 (6-14) 15 (6-14) Blood Urea Nitrogen 35 mg/dL (8-26) 33 mg/dL (8-26) Creatinine 1.0 mg/dL (0.7-1.3) 0.9 mg/dL (0.7-1.3) Estimated GFR (Cockcroft-Gault) 88.4 99.8 Glucose Level 150 mg/dL (70-99) 166 mg/dL (70-99) Calcium Level 8.7 mg/dL (8.5-10.1) 8.9 mg/dL (8.5-10.1) Magnesium Level 2.3 mg/dL (1.8-2.4) 2.2 mg/dL (1.8-2.4) Test 04/18/21 08:55 Glucose (Fingerstick) 179 mg/dL (70-99) Laboratory Tests Test 04/17/21 18:09 04/18/21 07:35 04/18/21 08:55 Glucose (Fingerstick) 232 mg/dL (70-99) 179 mg/dL (70-99) Sodium Level 145 mmol/L (136-145) Potassium Level 3.2 mmol/L (3.5-5.1) Chloride Level 105 mmol/L (98-107) Carbon Dioxide Level 25 mmol/L (21-32) Anion Gap 15 (6-14) Blood Urea Nitrogen 33 mg/dL (8-26) Creatinine 0.9 mg/dL (0.7-1.3) Estimated GFR (Cockcroft-Gault) 99.8 Glucose Level 166 mg/dL (70-99) Calcium Level 8.9 mg/dL (8.5-10.1) Magnesium Level 2.2 mg/dL (1.8-2.4) Medications Active Scripts Medications Dose Route/Sig Max Daily Dose Days Date Category Metformin Hcl 1,000 Mg Tablet 1,000 Mg PO BIDWMEALS 04/14/21 Reported Dorzolamide-Timolol Eye Drops (Dorzolamide Hcl/Timolol Maleat) 10 Ml Drops 1 Drop EACHEYE TID 04/14/21 Reported Comments Chest x-ray reviewed 04/16/2021. Improving left lung interstitial infiltrate cxr reviewed Patchy opacities right upper lung and bilateral lung bases likely atelectasis or consolidation, stable. Impression . IMPRESSION: 1. Acute hypoxemic respiratory failure. Extubated 04/16/2021. Currently on room air. 2. Abnormal CT chest revealing no evidence of pulmonary embolism. There is evidence of bilateral infiltrates, interstitial in nature, possible pulmonary edema versus atypical pneumonia. 3. Possible gram-negative, gram-positive pneumonia. 4. SARS-CoV-2 negative, both rapid and nucleic amplification test, reportedly 5. Chronic anemia. 6. Small pericardial effusion. 7. Bilateral pleural effusion. 8. The patient unvaccinated for COVID-19. Plan . Updated 04/18 1. Currently awake and following some commands. On room air. Extubated 04/16/2021 2. IV Lasix. keep I<O monitor k cr 3. follow Cardiology rec 4. Monitor labs. 5. DVT prophylaxis. 6. GI prophylaxis. 7. P.o. abx 8. Chest x-ray reviewed. Improving interstitial infiltrates discussed w rn rt. Transfer to the floor when bed available. Updated 04/17 1. Currently awake and following some commands. On room air. Extubated 04/16/2021 2. IV Lasix. keep I<O monitor k cr 3. follow Cardiology rec 4. Monitor labs. 5. DVT prophylaxis. 6. GI prophylaxis. 7. Can change to abx 8. Chest x-ray reviewed. Improving interstitial infiltrates discussed w rn rt. Transfer to the floor when bed available. Updated 04/16 1. Currently awake and following some commands. Still weak but doing well on CPAP trial. We will proceed with extubation. 2. IV Lasix. keep I<O monitor k cr 3. follow Cardiology rec 4. Monitor labs. 5. DVT prophylaxis. 6. GI prophylaxis. 7. abx 8. Chest x-ray reviewed. Improving interstitial infiltrates discussed w rn rt 04/15 1. Continue vent support. setting reviewed decrease sedation sbt when alert 2. IV Lasix. keep I<O monitor k cr 3. follow Cardiology rec 4. Monitor labs. 5. DVT prophylaxis. 6. GI prophylaxis. 7. abx discussed w rn rt PLAN: 1. Continue vent support. setting reviewed decrease sedation sbt when alert 2. IV Lasix. 3. follow Cardiology rec 4. Monitor labs. 5. DVT prophylaxis. 6. GI prophylaxis. 7. abx discussed w rn rt DAISHA TERRELL MD Apr 18, 2021 10:28
[2021-04-18] MEDS: FUROSEMIDE 40 MG/4 ML VIAL. IVP SCH (12:17)
--- NOTE | 2021-04-18 16:21 | NUR ---
SS following up with discharge planning. SS reviewed pt chart and discussed with pt RN. Pt is currently on room air. COVID19 negative. Pt on IV Lasix and PO Doxycycline. PT/OT ordered. Pt walked 220 feet with physical therapy today. PT/OT recommended alf unit. SS met with pt and discussed discharge planning. Pt reported that his preference is to return to home with his spouse and home healthcare. Pt reported that they are moving there bed downstairs and pt will not have stairs. Pt reported no preference of home healthcare company. Referral sent to [facility], ; fax [phone]. SS will continue to follow for discharge planning.
--- NOTE | 2021-04-18 19:55 | NUR ---
pt sitting up in bed assessment completed vss poc explained pt denied pain at this time call light placed in reach pt reminded to call for assistance prior to getting oob will resume care and continue to monitor pt.
[2021-04-18] MEDS: LACTOBACILLUS RHAMNOSUS GG 1 CAPSULE. PO SCH ×2 (21:41→21:46)
[2021-04-18] MEDS: LABETALOL 20 MG/4 ML DISP.SYRIN. IVP PRN (22:18)
[2021-04-19] VITALS (8 sets, daily range): BP systolic 140–207; BP diastolic 62–94
[2021-04-19] MEDS: ENALAPRILAT 1.25 MG/ML VIAL. IVP SCH ×2 (03:17→08:38)
[2021-04-19] MEDS: NITROGLYCERIN OINT 1 GM PACKET. TP SCH ×4 (06:27→23:39)
[2021-04-19] MEDS: HEPARIN for SUB-Q USE 5,000 UNIT/ML VIAL. SQ SCH ×3 (06:28→21:58)
[2021-04-19] MEDS: LABETALOL 20 MG/4 ML DISP.SYRIN. IVP PRN ×2 (06:28→21:51)
[2021-04-19 07:58] LABS: CALCIUM 8.8 mg/dL (8.5-10.1); CREATININE 0.8 mg/dL (0.7-1.3); GFR 114.3; POTASSIUM 3.2 mmol/L (3.5-5.1)
[2021-04-19] MEDS: DOXYCYCLINE HYCLATE 100 MG TABLET PO SCH ×2 (08:37→21:51)
[2021-04-19] MEDS: LACTOBACILLUS RHAMNOSUS GG 1 CAPSULE. PO SCH ×2 (08:37→21:50)
[2021-04-19] MEDS: FUROSEMIDE 40 MG/4 ML VIAL. IVP SCH (08:38)
[2021-04-19] MEDS: FAMOTIDINE 20 MG/2 ML VIAL IVP SCH ×2 (08:39→21:51)
[2021-04-19] MEDS: TIMOLOL 0.5% OPHTH SOLUTION 5ML BOTTLE. OU SCH ×3 (08:39→21:59)
[2021-04-19] MEDS: DORZOLAMIDE 2% OPHTH SOLUTION 10ML BOTTLE. OU SCH ×3 (08:39→21:59)
[2021-04-19] MEDS: INSULIN LISPRO 300 UNITS/3 ML VIAL. SQ SCH ×3 (08:41→17:15)
[2021-04-19] MEDS: ELECTROLYTE (ICU) PROTOCOL. MC SCH (09:00)
--- NOTE | 2021-04-19 09:41 | NUR ---
SS following up with discharge planning. SS reviewed pt chart and discussed with pt RN. Pt is currently on room air. COVID19 negative. Pt on IV Lasix. PO diet. Pt having high blood pressure today. PT/OT recommended care home unit. Pt declining care home unit at this time and requesting to return to home with spouse and home healthcare. Pt accepted on services with [facility], ; fax [phone]. SS will continue to follow for discharge planning.
--- NOTE | 2021-04-19 10:07 | PDOC ---
PULMONARY PROGRESS NOTES DATE: 04/19/21 TIME: 10:06 Subjective Patient extubated 04/16/2021 Currently on room air. Vitals Vital Signs Date Time Temp Pulse Resp B/P (MAP) Pulse Ox O2 Delivery O2 Flow Rate FiO2 04/19/21 08:38 70 207/94 04/19/21 08:10 Room Air 04/19/21 06:22 98.8 16 95 98.8 General: Alert, No acute distress HEENT: Other (nc at perrl nose clear orally intubated neck no lad no thyromegaly) Lungs: Crackles Cardiovascular: S1, S2 Abdomen: Soft Extremities: Other (1+ edema) Skin: Warm Labs Laboratory Tests Test 04/17/21 18:09 04/18/21 07:35 04/18/21 08:55 04/18/21 12:25 Glucose (Fingerstick) 232 mg/dL (70-99) 179 mg/dL (70-99) 212 mg/dL (70-99) Sodium Level 145 mmol/L (136-145) Potassium Level 3.2 mmol/L (3.5-5.1) Chloride Level 105 mmol/L (98-107) Carbon Dioxide Level 25 mmol/L (21-32) Anion Gap 15 (6-14) Blood Urea Nitrogen 33 mg/dL (8-26) Creatinine 0.9 mg/dL (0.7-1.3) Estimated GFR (Cockcroft-Gault) 99.8 Glucose Level 166 mg/dL (70-99) Calcium Level 8.9 mg/dL (8.5-10.1) Magnesium Level 2.2 mg/dL (1.8-2.4) Test 04/18/21 19:54 04/19/21 06:05 04/19/21 07:39 Glucose (Fingerstick) 236 mg/dL (70-99) 176 mg/dL (70-99) Sodium Level 140 mmol/L (136-145) Potassium Level 3.2 mmol/L (3.5-5.1) Chloride Level 106 mmol/L (98-107) Carbon Dioxide Level 24 mmol/L (21-32) Anion Gap 10 (6-14) Blood Urea Nitrogen 29 mg/dL (8-26) Creatinine 0.8 mg/dL (0.7-1.3) Estimated GFR (Cockcroft-Gault) 114.3 Glucose Level 173 mg/dL (70-99) Calcium Level 8.8 mg/dL (8.5-10.1) Laboratory Tests Test 04/18/21 12:25 04/18/21 19:54 04/19/21 06:05 04/19/21 07:39 Glucose (Fingerstick) 212 mg/dL (70-99) 236 mg/dL (70-99) 176 mg/dL (70-99) Sodium Level 140 mmol/L (136-145) Potassium Level 3.2 mmol/L (3.5-5.1) Chloride Level 106 mmol/L (98-107) Carbon Dioxide Level 24 mmol/L (21-32) Anion Gap 10 (6-14) Blood Urea Nitrogen 29 mg/dL (8-26) Creatinine 0.8 mg/dL (0.7-1.3) Estimated GFR (Cockcroft-Gault) 114.3 Glucose Level 173 mg/dL (70-99) Calcium Level 8.8 mg/dL (8.5-10.1) Medications Active Scripts Medications Dose Route/Sig Max Daily Dose Days Date Category Metformin Hcl 1,000 Mg Tablet 1,000 Mg PO BIDWMEALS 04/14/21 Reported Dorzolamide-Timolol Eye Drops (Dorzolamide Hcl/Timolol Maleat) 10 Ml Drops 1 Drop EACHEYE TID 04/14/21 Reported Comments Chest x-ray reviewed 04/16/2021. Improving left lung interstitial infiltrate cxr reviewed Patchy opacities right upper lung and bilateral lung bases likely atelectasis or consolidation, stable. Impression . IMPRESSION: 1. Acute hypoxemic respiratory failure. Extubated 04/16/2021. Currently on room air. 2. Abnormal CT chest revealing no evidence of pulmonary embolism. There is evidence of bilateral infiltrates, interstitial in nature, possible pulmonary edema versus atypical pneumonia. 3. Possible gram-negative, gram-positive pneumonia. 4. SARS-CoV-2 negative, both rapid and nucleic amplification test, reportedly 5. Chronic anemia. 6. Small pericardial effusion. 7. Bilateral pleural effusion. 8. The patient unvaccinated for COVID-19. Plan . Updated 04/19 1. Currently awake and following some commands. On room air. Extubated 04/16/2021 2. IV Lasix. keep I<O monitor k cr 3. follow Cardiology rec 4. Monitor labs. 5. DVT prophylaxis. 6. GI prophylaxis. 7. P.o. abx 8. Chest x-ray reviewed. Improving interstitial infiltrates discussed w rn Updated 04/18 1. Currently awake and following some commands. On room air. Extubated 04/16/2021 2. IV Lasix. keep I<O monitor k cr 3. follow Cardiology rec 4. Monitor labs. 5. DVT prophylaxis. 6. GI prophylaxis. 7. P.o. abx 8. Chest x-ray reviewed. Improving interstitial infiltrates discussed w rn rt. Transfer to the floor when bed available. Updated 04/17 1. Currently awake and following some commands. On room air. Extubated 04/16/2021 2. IV Lasix. keep I<O monitor k cr 3. follow Cardiology rec 4. Monitor labs. 5. DVT prophylaxis. 6. GI prophylaxis. 7. Can change to abx 8. Chest x-ray reviewed. Improving interstitial infiltrates discussed w rn rt. Transfer to the floor when bed available. Updated 04/16 1. Currently awake and following some commands. Still weak but doing well on CPAP trial. We will proceed with extubation. 2. IV Lasix. keep I<O monitor k cr 3. follow Cardiology rec 4. Monitor labs. 5. DVT prophylaxis. 6. GI prophylaxis. 7. abx 8. Chest x-ray reviewed. Improving interstitial infiltrates discussed w rn rt 04/15 1. Continue vent support. setting reviewed decrease sedation sbt when alert 2. IV Lasix. keep I<O monitor k cr 3. follow Cardiology rec 4. Monitor labs. 5. DVT prophylaxis. 6. GI prophylaxis. 7. abx discussed w rn rt PLAN: 1. Continue vent support. setting reviewed decrease sedation sbt when alert 2. IV Lasix. 3. follow Cardiology rec 4. Monitor labs. 5. DVT prophylaxis. 6. GI prophylaxis. 7. abx discussed w rn rt DAISHA TERRELL MD Apr 19, 2021 10:07
--- NOTE | 2021-04-19 13:08 | PDOC ---
[facility] PROGRESS NOTE Date of Service DOS: DATE: 04/19/21 TIME: 13:06 Chief Complaint Chief Complaint Acute hypoxic respiratory failure ACUTE systolic CHF, lasix acute pulmonary edema - poss pneumonia gram-negative versus gram-positive. Chronic anemia. Small pericardial effusion. Bilateral pleural effusion. FEN -cardiac diet PPX - lovenox FULL CODE Dispo - inpatient, ICU History of Present Illness History of Present Illness 04/19/2020 Patient seen and examined exam discussed with RN Chart reviewed His blood pressures have been high this morning but they are coming down currently at 168 systolically 04/15: cont diurese, his son is here from emergency leave. he failed vent wean, CXR more cloudy today. breathing better on current PS trial, good volumes, following commands very well 04/16: Echo with normal EF LVH, RVSP ~ 45. K2.7 urine output 2.2 L and then 2.7 L in the past 48 hours. Seen in ICU on ventilator minimal settings PEEP 5 FiO2 35%. 04/17: Seen bedside in ICU. extubated without event. Potassium 3.1 despite replacement. Able to pass bedside swallow. Diuresing well with IV furosemide. 04/18: Seen bedside. Afebrile. Eating breakfast. BP systolic in the 200s despite treatment. Patient notes he is not holding blood pressure meds outpatient but has not started them. No chest pain or shortness of breath Vitals/I&O Vitals/I&O: Vital Signs Date Time Temp Pulse Resp B/P (MAP) Pulse Ox O2 Delivery O2 Flow Rate FiO2 04/19/21 12:12 60 168/83 04/19/21 11:00 98.0 16 97 Room Air 98.0 I & O 04/18/21 04/18/21 04/19/21 15:00 23:00 07:00 Intake Total 350 ml 342 ml 0 ml Output Total 385 ml 190 ml 500 ml Balance -35 ml 152 ml -500 ml Physical Exam General: Alert, Oriented X3, Cooperative Heart: Regular rate Lungs: Crackles Abdomen: Normal bowel sounds Extremities: No cyanosis Skin: No breakdown, No significant lesion Labs Labs: Laboratory Tests Test 04/18/21 19:54 04/19/21 06:05 04/19/21 07:39 04/19/21 12:00 Glucose (Fingerstick) 236 mg/dL (70-99) 176 mg/dL (70-99) 188 mg/dL (70-99) Sodium Level 140 mmol/L (136-145) Potassium Level 3.2 mmol/L (3.5-5.1) Chloride Level 106 mmol/L (98-107) Carbon Dioxide Level 24 mmol/L (21-32) Anion Gap 10 (6-14) Blood Urea Nitrogen 29 mg/dL (8-26) Creatinine 0.8 mg/dL (0.7-1.3) Estimated GFR (Cockcroft-Gault) 114.3 Glucose Level 173 mg/dL (70-99) Calcium Level 8.8 mg/dL (8.5-10.1) Assessment and Plan Assessmemt and Plan Acute hypoxic respiratory failure ACUTE systolic CHF, lasix acute pulmonary edema - poss pneumonia gram-negative versus gram-positive. Chronic anemia. Small pericardial effusion. Bilateral pleural effusion. Plan Cardiac monitoring We are adjusting his blood pressure meds Home meds DVT prophylaxis Full code Trend labs Encourage p.o. intake Appreciate subspecialist input Hope to discharge soon Per pulmonary medicine please see the following and we certainly agree and appreciate their input; IMPRESSION: 1. Acute hypoxemic respiratory failure. Extubated 04/16/2021. Currently on room air. 2. Abnormal CT chest revealing no evidence of pulmonary embolism. There is evidence of bilateral infiltrates, interstitial in nature, possible pulmonary edema versus atypical pneumonia. 3. Possible gram-negative, gram-positive pneumonia. 4. SARS-CoV-2 negative, both rapid and nucleic amplification test, reportedly 5. Chronic anemia. 6. Small pericardial effusion. 7. Bilateral pleural effusion. 8. The patient unvaccinated for COVID-19. Plan Plan . Updated 04/19 1. Currently awake and following some commands. On room air. Extubated 04/16/2021 2. IV Lasix. keep I<O monitor k cr 3. follow Cardiology rec 4. Monitor labs. 5. DVT prophylaxis. 6. GI prophylaxis. 7. P.o. abx 8. Chest x-ray reviewed. Improving interstitial infiltrates discussed w rn Comment Review of Relevant I have reviewed the following items carmen (where applicable) has been applied. Medications: Current Medications Medications (Trade) Dose Ordered Sig/Radhames Route PRN Reason Start Time Stop Time Status Last Admin Dose Admin Lactobacillus Rhamnosus (Culturelle) 1 cap BID PO 04/18/21 20:10 04/19/21 08:37 Insulin Human Lispro (HumaLOG) 0-5 UNITS TIDWMEALS SQ 04/19/21 08:00 04/19/21 12:12 Justifications for Admission Other Justification DONTAE INMAN III DO Apr 19, 2021 13:07
[2021-04-19] MEDS ORDERED: LISINOPRIL 10 MG TABLET PO ONE (13:45)
--- NOTE | 2021-04-19 13:47 | PDOC ---
CARDIO Progress Notes Date and Time Date of Service 04/19/2021 Time of Evaluation 1020 Subjective Subjective: No Chest Pain, No shortness of breath, No Palpitations Vitals Vitals Vital Signs Date Time Temp Pulse Resp B/P (MAP) Pulse Ox O2 Delivery O2 Flow Rate FiO2 04/19/21 12:12 60 168/83 04/19/21 11:00 98.0 16 97 Room Air 98.0 Weight Weight [ ] Input and Output Intake and Output Intake and Output 04/19/21 07:00 Intake Total 692 ml Output Total 1075 ml Balance -383 ml Intake Oral 600 ml IV Total 92 ml Output Urine Total 1075 ml Laboratory Labs Laboratory Tests Test 04/18/21 19:54 04/19/21 06:05 04/19/21 07:39 04/19/21 12:00 Glucose (Fingerstick) 236 mg/dL (70-99) 176 mg/dL (70-99) 188 mg/dL (70-99) Sodium Level 140 mmol/L (136-145) Potassium Level 3.2 mmol/L (3.5-5.1) Chloride Level 106 mmol/L (98-107) Carbon Dioxide Level 24 mmol/L (21-32) Anion Gap 10 (6-14) Blood Urea Nitrogen 29 mg/dL (8-26) Creatinine 0.8 mg/dL (0.7-1.3) Estimated GFR (Cockcroft-Gault) 114.3 Glucose Level 173 mg/dL (70-99) Calcium Level 8.8 mg/dL (8.5-10.1) Physical Exam HEENT: Neck Supple W Full Motion Chest: Symmetric LUNGS: Clear to Auscultation Heart: RRR (SR) Abdomen: Soft N/T Extremities: Other (1+ bilateral LE edema ) Neurology: alert, oriented, follow commands Assessment Assessment 1. Acute hypoxic respiratory failure with CHF and possible PNA; s/p extubation 2. Acute on chronic diastolic CHF; Echo with preserved LV systolic function compensated 3 . Hypertension; labile 4. KENDRICK; better 5. Diabetes, II 6. Hypokalemia; being replaced Recommendations able to take PO start on norvasc and lisinopril/HCTZ Consider outpatient ischemic evaluation Supportive care Justicifation of Admission Dx: Justifications for Admission: Justification of Admission Dx: Yes SHELTON BORRERO EMPLOYMENT REPRESENTATIVE Apr 19, 2021 13:47
--- NOTE | 2021-04-19 19:20 | NUR ---
Assessment completed vss poc explained pt denied pain at this time pt reoriented to surroundings and call light pt blood pressure elevated will medicate pt and continue to monitor pt. Pt reminded to call for assistance prior to getting oob.
[2021-04-20 03:00] VITALS: BP 147/65
[2021-04-20 04:49] LABS: CALCIUM 8.1 mg/dL (8.5-10.1); CREATININE 0.8 mg/dL (0.7-1.3); GFR 114.3
[2021-04-20] MEDS: NITROGLYCERIN OINT 1 GM PACKET. TP SCH ×2 (06:15→13:18)
[2021-04-20] MEDS: HEPARIN for SUB-Q USE 5,000 UNIT/ML VIAL. SQ SCH ×2 (06:20→14:00)
[2021-04-20 06:34] VITALS: BP 170/77
[2021-04-20] MEDS: INSULIN LISPRO 300 UNITS/3 ML VIAL. SQ SCH ×2 (08:00→12:00)
[2021-04-20] MEDS ORDERED: hydroCHLOROthiazide 12.5 MG CAPSULE PO SCH (09:00)
[2021-04-20] MEDS ORDERED: LISINOPRIL 10 MG TABLET PO SCH (09:00)
[2021-04-20] MEDS: ELECTROLYTE (ICU) PROTOCOL. MC SCH (09:00)
[2021-04-20] MEDS: FAMOTIDINE 20 MG/2 ML VIAL IVP SCH (09:19)
[2021-04-20] MEDS: DOXYCYCLINE HYCLATE 100 MG TABLET PO SCH (09:19)
[2021-04-20] MEDS: LACTOBACILLUS RHAMNOSUS GG 1 CAPSULE. PO SCH (09:19)
[2021-04-20] MEDS: TIMOLOL 0.5% OPHTH SOLUTION 5ML BOTTLE. OU SCH ×2 (09:20→13:26)
[2021-04-20] MEDS: DORZOLAMIDE 2% OPHTH SOLUTION 10ML BOTTLE. OU SCH ×2 (09:20→13:26)
--- NOTE | 2021-04-20 10:14 | PDOC ---
[employer] PROGRESS NOTE Date of Service DOS: DATE: 04/20/21 TIME: 10:12 Chief Complaint Chief Complaint Acute hypoxic respiratory failure ACUTE systolic CHF, lasix acute pulmonary edema - poss pneumonia gram-negative versus gram-positive. Chronic anemia. Small pericardial effusion. Bilateral pleural effusion. FEN -cardiac diet PPX - lovenox FULL CODE Dispo - inpatient, ICU History of Present Illness History of Present Illness 04/20/2020 Patient seen and examined Chart reviewed Discussed with RN Patient sitting up in bed, smiling. We discussed discharge planning today if we can stabilize his BP. Last BP was 170/77. Vitals/I&O Vitals/I&O: Vital Signs Date Time Temp Pulse Resp B/P (MAP) Pulse Ox O2 Delivery O2 Flow Rate FiO2 04/20/21 09:20 64 170/77 04/20/21 06:34 99.5 17 95 Room Air 99.5 I & O 04/19/21 04/19/21 04/20/21 15:00 23:00 07:00 Intake Total 500 ml 470 ml 100 ml Output Total 1450 ml Balance 500 ml 470 ml -1350 ml Physical Exam General: Alert, Oriented X3, Cooperative Heart: Regular rate Lungs: Crackles Abdomen: Normal bowel sounds Extremities: No cyanosis Skin: No breakdown, No significant lesion Labs Labs: Laboratory Tests Test 04/19/21 12:00 04/19/21 16:46 04/19/21 20:02 04/20/21 04:00 Glucose (Fingerstick) 188 mg/dL (70-99) 236 mg/dL (70-99) 170 mg/dL (70-99) Sodium Level 140 mmol/L (136-145) Potassium Level 3.0 mmol/L (3.5-5.1) Chloride Level 107 mmol/L (98-107) Carbon Dioxide Level 24 mmol/L (21-32) Anion Gap 9 (6-14) Blood Urea Nitrogen 33 mg/dL (8-26) Creatinine 0.8 mg/dL (0.7-1.3) Estimated GFR (Cockcroft-Gault) 114.3 Glucose Level 173 mg/dL (70-99) Calcium Level 8.1 mg/dL (8.5-10.1) Test 04/20/21 07:33 Glucose (Fingerstick) 156 mg/dL (70-99) Assessment and Plan Assessmemt and Plan Acute hypoxic respiratory failure ACUTE systolic CHF, lasix acute pulmonary edema - poss pneumonia gram-negative versus gram-positive. Chronic anemia. Small pericardial effusion. Bilateral pleural effusion. Plan: Discharge today if BP is stabilized Cardiac monitoring We are adjusting his blood pressure meds Home meds DVT prophylaxis Full code Trend labs Encourage p.o. intake Appreciate subspecialist input Comment Review of Relevant I have reviewed the following items carmen (where applicable) has been applied. Medications: Current Medications Medications (Trade) Dose Ordered Sig/Radhames Route PRN Reason Start Time Stop Time Status Last Admin Dose Admin Amlodipine Besylate (Norvasc) 10 mg 1X ONCE PO 04/19/21 13:45 04/19/21 13:53 DC 04/19/21 15:00 Amlodipine Besylate (Norvasc) 10 mg DAILY PO 04/20/21 09:00 04/20/21 09:20 Lisinopril (Prinivil) 10 mg DAILY PO 04/20/21 09:00 04/20/21 09:19 Lisinopril (Prinivil) 10 mg 1X ONCE PO 04/19/21 13:45 04/19/21 13:53 DC 04/19/21 15:00 Hydrochlorothiazide (Microzide) 12.5 mg DAILY PO 04/20/21 09:00 04/20/21 09:19 Justifications for Admission Other Justification DONTAE INMAN III DO Apr 20, 2021 10:14
[2021-04-20] MEDS ORDERED: LISI10TA16 PO (10:24)
[2021-04-20] MEDS ORDERED: HYDR12.575 PO (10:24)
[2021-04-20] MEDS ORDERED: TIMO5DRO5 OU (10:24)
[2021-04-20] MEDS ORDERED: AMLO-187 PO (10:24)
[2021-04-20] MEDS ORDERED: DORZ10DR6 OU (10:24)
[2021-04-20] MEDS ORDERED: DOXY100T PO (10:24)
--- NOTE | 2021-04-20 10:25 | SNU/HH DC ---
DISCHARGE WITH HOME HEALTH DISCHARGE INFORMATION: Condition on Discharge: Stable CODE STATUS: Code Status: Full HOME HEALTH: Face to Face: I certify this patient is under my care and that I, or a nurse practitioner or physician's culinary assistant working with me, had a face to face encounter that meets the physician face to face encounter requirements with this patient on []. Medical Complications: HTN Longterm For: Assess Cardiopulm Status RN For Eval/Treatment: Yes Physical Therapy For: Evalulation/Treatment Occupational Therapy For: Evaluation/Treatment Home Health Aide For: Self-care LOOP SEWER For: Community Resources Pt Meets Homebound Status: Poor coordination w/ amb. POST DISCHARGE ORDERS: Activity Instructions for Disc: Bedrest today DIET AFTER DISCHARGE: Cardiac CERTIFICATION STATEMENT: Certification Statement: Certification Statement: Based on the above finding, I certify that this patient is confined to the home and needs intermittent residential care, physical therapy and/or speech therapy, or continues to need occupational therapy.~ This patient is under my care, and I have initiated the establishment of the plan of care.~ This patient will be followed by myself or a community physician who will periodically review the plan of care. Home Meds Active Scripts Dorzolamide Hcl (DORZOLAMIDE HCL) 10 Ml Drops, 1 DROP OU TID for . for 30 Days, #1 DROP Prov:CASTLE,NIAL K III DO 04/20/21 Timolol Maleate (Timolol Maleate) 5 Ml Drops, 1 DROP OU TID for . for 30 Days, #1 DROP Prov:CASTLE,NIAL K III DO 04/20/21 Hydrochlorothiazide (HYDROCHLOROTHIAZIDE CAPSULE ) 12.5 Mg Capsule, 12.5 MG PO DAILY for . for 30 Days, #30 CAP Prov:CASTLE,NIAL K III DO 04/20/21 Lisinopril (LISINOPRIL) 10 Mg Tablet, 10 MG PO DAILY for . for 30 Days, #30 TAB Prov:CASTLE,NIAL K III DO 04/20/21 Amlodipine Besylate (AMLODIPINE BESYLATE) 10 Mg Tablet, 10 MG PO DAILY for . for 30 Days, #30 TAB Prov:CASTLE,NIAL K III DO 04/20/21 Doxycycline Hyclate (DOXYCYCLINE HYCLATE) 100 Mg Tablet, 100 MG PO BID for . for 7 Days, #14 TAB Prov:CASTLE,NIAL K III DO 04/20/21 Reported Medications Metformin Hcl (METFORMIN HCL) 1,000 Mg Tablet, 1000 MG PO BIDWMEALS for DIABETES, TAB 04/14/21 Dorzolamide Hcl/Timolol Maleat (DORZOLAMIDE-TIMOLOL EYE DROPS) 10 Ml Drops, 1 DROP EACHEYE TID for GLAUCOMA, #10 ML 0 Refills 04/14/21 DONTAE INMAN III DO Apr 20, 2021 10:25
[2021-04-20] MEDS ORDERED: FUROSEMIDE 40 MG/4 ML VIAL. IVP ONE (10:30)
--- NOTE | 2021-04-20 10:48 | PDOC ---
PULMONARY PROGRESS NOTES DATE: 04/20/21 TIME: 10:47 Subjective Patient extubated 04/16/2021 Currently on room air. Vitals Vital Signs Date Time Temp Pulse Resp B/P (MAP) Pulse Ox O2 Delivery O2 Flow Rate FiO2 04/20/21 09:20 64 170/77 04/20/21 06:34 99.5 17 95 Room Air 99.5 General: Alert, No acute distress HEENT: Other (nc at perrl nose clear orally intubated neck no lad no thyromegaly) Lungs: Crackles Cardiovascular: S1, S2 Abdomen: Soft Extremities: Other (1+ edema) Skin: Warm Labs Laboratory Tests Test 04/18/21 12:25 04/18/21 19:54 04/19/21 06:05 04/19/21 07:39 Glucose (Fingerstick) 212 mg/dL (70-99) 236 mg/dL (70-99) 176 mg/dL (70-99) Sodium Level 140 mmol/L (136-145) Potassium Level 3.2 mmol/L (3.5-5.1) Chloride Level 106 mmol/L (98-107) Carbon Dioxide Level 24 mmol/L (21-32) Anion Gap 10 (6-14) Blood Urea Nitrogen 29 mg/dL (8-26) Creatinine 0.8 mg/dL (0.7-1.3) Estimated GFR (Cockcroft-Gault) 114.3 Glucose Level 173 mg/dL (70-99) Calcium Level 8.8 mg/dL (8.5-10.1) Test 04/19/21 12:00 04/19/21 16:46 04/19/21 20:02 04/20/21 04:00 Glucose (Fingerstick) 188 mg/dL (70-99) 236 mg/dL (70-99) 170 mg/dL (70-99) Sodium Level 140 mmol/L (136-145) Potassium Level 3.0 mmol/L (3.5-5.1) Chloride Level 107 mmol/L (98-107) Carbon Dioxide Level 24 mmol/L (21-32) Anion Gap 9 (6-14) Blood Urea Nitrogen 33 mg/dL (8-26) Creatinine 0.8 mg/dL (0.7-1.3) Estimated GFR (Cockcroft-Gault) 114.3 Glucose Level 173 mg/dL (70-99) Calcium Level 8.1 mg/dL (8.5-10.1) Test 04/20/21 07:33 Glucose (Fingerstick) 156 mg/dL (70-99) Laboratory Tests Test 04/19/21 12:00 04/19/21 16:46 04/19/21 20:02 04/20/21 04:00 Glucose (Fingerstick) 188 mg/dL (70-99) 236 mg/dL (70-99) 170 mg/dL (70-99) Sodium Level 140 mmol/L (136-145) Potassium Level 3.0 mmol/L (3.5-5.1) Chloride Level 107 mmol/L (98-107) Carbon Dioxide Level 24 mmol/L (21-32) Anion Gap 9 (6-14) Blood Urea Nitrogen 33 mg/dL (8-26) Creatinine 0.8 mg/dL (0.7-1.3) Estimated GFR (Cockcroft-Gault) 114.3 Glucose Level 173 mg/dL (70-99) Calcium Level 8.1 mg/dL (8.5-10.1) Test 04/20/21 07:33 Glucose (Fingerstick) 156 mg/dL (70-99) Medications Active Scripts Medications Dose Route/Sig Max Daily Dose Days Date Category Metformin Hcl 1,000 Mg Tablet 1,000 Mg PO BIDWMEALS 04/14/21 Reported Dorzolamide-Timolol Eye Drops (Dorzolamide Hcl/Timolol Maleat) 10 Ml Drops 1 Drop EACHEYE TID 04/14/21 Reported Comments Chest x-ray reviewed 04/16/2021. Improving left lung interstitial infiltrate cxr reviewed Patchy opacities right upper lung and bilateral lung bases likely atelectasis or consolidation, stable. Impression . IMPRESSION: 1. Acute hypoxemic respiratory failure. Extubated 04/16/2021. Currently on room air. 2. Abnormal CT chest revealing no evidence of pulmonary embolism. There is evidence of bilateral infiltrates, interstitial in nature, possible pulmonary edema versus atypical pneumonia. 3. Possible gram-negative, gram-positive pneumonia. 4. SARS-CoV-2 negative, both rapid and nucleic amplification test, reportedly 5. Chronic anemia. 6. Small pericardial effusion. 7. Bilateral pleural effusion. 8. The patient unvaccinated for COVID-19. Plan . Updated 04/20 1. On room air. Extubated 04/16/2021 2. IV Lasix. keep I<O monitor k cr 3. follow Cardiology rec 4. Monitor labs. 5. DVT prophylaxis. 6. GI prophylaxis. 7. P.o. abx 8. Chest x-ray reviewed. Improving interstitial infiltrates discussed w rn. Likely discharge today. DAISHA TERRELL MD Apr 20, 2021 10:48
[2021-04-20 11:00] VITALS: BP 171/77
--- NOTE | 2021-04-20 12:00 | NUR ---
SS following up with discharge planning. SS reviewed pt chart and discussed with pt RN. Pt is currently on room air. COVID19 negative. PT/OT recommended home with home healthcare. Pt accepted on services with [facility], ; fax [phone]. Blood pressure remains high today. Medications being adjusted. SS will continue to follow for discharge planning. Addendum: 04/20/21 at 1629 by EDD PIZANO SS Discharge orders received and phoned and faxed to [facility].
[2021-04-20] MEDS ORDERED: POTASSIUM CHLORIDE 20 MEQ TABLET.ER. PO ONE ×2 (13:00→17:00)
[2021-04-20] MEDS: LABETALOL 20 MG/4 ML DISP.SYRIN. IVP PRN (13:17)
[2021-04-20 15:00] VITALS: BP 130/56
--- NOTE | 2021-04-20 21:10 | DS ---
DATE OF DISCHARGE: 04/20/2021 ADMITTING DIAGNOSES: Respiratory failure, pulmonary edema, effusions, accelerated hypertension. DISCHARGE DIAGNOSES: Resolving respiratory failure, resolving effusions, resolving hypertensive urgency, diabetes. CONSULTS: Cardiology and Pulmonary Medicine. PROCEDURES: None. HOSPITAL COURSE: The patient is a pleasant middle-aged male who presented with respiratory failure. He had heart failure and accelerated hypertension. We did cardiac enzymes. Cardiac monitoring. Echocardiogram. Home meds. We consulted Cardiology and Pulmonary Medicine and over the next few days, he slowly returned to baseline after we diuresed him and got his blood pressures under control. Today, I saw him and examined him. He was doing well. We will discharge to home. DISPOSITION: Home. ACTIVITY: As tolerated. DIET: Low sodium. DISCHARGE MEDICATIONS: Please see the MRAD. MEDICATIONS: Amlodipine 10 a day, dorzolamide eye drops 1 drop each eye t.i.d., doxycycline 100 b.i.d., hydrochlorothiazide 12.5 a day, lisinopril 10 a day, and timolol eyedrops. Total time [address]: NANO/robert TID: [id number]
== END 2021-04-20 16:31 | disposition home or self-care (01) | DRG 208 ==
LOC: 1 WEST ICU 20:00 → 6 SOUTH 04-18 17:45
PROVIDERS: ADMIT Internal Medicine; ATTEND Internal Medicine
PROC: 5A1945Z Respiratory Ventilation, 24-96 Consecutive Hours (ICD-10-PCS; principal; 2021-04-12)
PROC: 0BH17EZ Insertion of Endotracheal Airway into Trachea, Via Natural or Artificial Opening (ICD-10-PCS; 2021-04-12)
DX: J96.01 Acute respiratory failure with hypoxia (principal); I50.43 Acute on chronic combined systolic (congestive) and diastolic (congestive) heart failure; I31.3 Pericardial effusion (noninflammatory); N17.9 Acute kidney failure, unspecified; D64.9 Anemia, unspecified; E11.9 Type 2 diabetes mellitus without complications; E87.6 Hypokalemia; I11.0 Hypertensive heart disease with heart failure; I16.0 Hypertensive urgency; Z20.822 Contact with and (suspected) exposure to COVID-19; Z28.3 Underimmunization status
CPT/HCPCS: 36415; 36600; 71045; 80048; 80053; 80061; 80307; 81001; 82570; 82805; 82962; 83735; 83880; 84300; 85025; 85027; 93306; 94002; 94003; 94760; J0360; J1644; J1815; J1940; J2060; J2543; J2704; J2930; J3010; J3480; J3490; J7060; J7120; 92610-GN; 97530-GO; 97530-GP; 97535-GO; G0378